=== PATIENT | male | born 1955 | race Caucasian/White ===

== ENCOUNTER → 2016-11-27 | Outpatient (CLI) | payer OTHER ==
--- NOTE | 2016-12-04 09:50 | P.ARTDOP ---
Arterial Doppler LOWER EXTREMITY ARTERIAL DOPPLER: DATE OF SERVICE: 11/27/2016 Reason for study: Leg pain. Doppler waveforms: Multiphasic bilaterally throughout. Pulse volume recording: Normal configuration. Pressure gradients: None. Ankle-brachial indices: Greater than 1 bilaterally. Toe pressures: 120 on the right, 122 on the left Impression: Normal study.
== END | disposition home or self-care (01) ==
LOC: RADUSWWP 06:55
PROVIDERS: ATTEND Family Medicine
DX: M79.669 Pain in unspecified lower leg (principal)
CPT/HCPCS: 93923

== ENCOUNTER 2017-03-21 09:31 | Observation (INO) | payer OTHER ==
[2017-03-19 09:59] VITALS: BMI 31.9
[~2017-03-21 09:31] MED LIST: DEXAMETHASONE SOD PHOSPHATE 10 MG/ML 1 ML VIAL IV ONE; MIDAZOLAM 2 MG/2 ML VIAL IV PRN; NALOXONE 0.4 MG/ML 1 ML VIAL IV PRN; ONDANSETRON 4 MG/2 ML VIAL IVP ONE; Pre Op ABX Message 1 EACH MISC MISCELLANE ONE; SCOPOLAMINE 1.5MG/72HR PATCH TRANSDERM ONE
--- NOTE | 2017-03-21 10:30 | HP ---
CHIEF COMPLAINT: Septal deviation and nasal stuffiness. HISTORY OF PRESENT ILLNESS: This patient is a 61-year-old male who was recently seen in my office complaining of having nasal stuffiness. The patient is known to have sleep apnea and uses a CPAP machine. At the time the patient was seen in my office he also states that he snores quite loudly at night. He apparently has been on Flonase but this has not improved his breathing significantly. Clinical examination of the patient's nose at the time of his office visit revealed severe nasal septal deviation, severe hypertrophy of the maxillary crest, deformity of the perpendicular plate of the ethmoid bone posteriorly, a vomerine spur impacting against the left middle turbinate and also bilateral hypertrophy of the inferior turbinates. It was recommended the patient undergo a caudal septoplasty with bilateral partial resection of the inferior turbinates under general anesthesia. Past medical history reveals the patient has no known allergies to medications. His current medications include nitroglycerine, levothyroxine, atenolol, lisinopril, amlodipine, one baby aspirin daily, Lipitor, Plavix, Prilosec, [place] , Antivert, and Coumadin. Previous surgeries include insertion of cardiac stents, hernia repair and a colonoscopy. There is a history of hypertension and ASHD, but no history of diabetes mellitus or asthma. REVIEW OF SYSTEMS: Cardiovascular is positive for hypertension, ASHD, and atrial fibrillation. Gastrointestinal is positive for gastroesophageal reflux disorder.Metabolic/endocrine is positive for hypercholesterolemia and hypothyroidism. Musculoskeletal system positive for osteoarthritis. The remainder of the review of systems is unremarkable. \ PHYSICAL EXAMINATION: This patient is a pleasant 61-year-old male who is alert and cooperative. HEENT: The patient is normocephalic. Tympanic membranes are normal. Middle ear spaces are free of any fluid or infection. Pupils equal, round and reactive to light and accommodation. Extraocular movements are within normal limits. Intranasal examination is as described above in the history of present illness, that is to say, the patient has severe anterior nasal septal deviation with subluxation with the cartilage portion of the septum off of the maxillary crest , hypertrophy of the maxillary crest, deformity of the perpendicular plate of the ethmoid bone posteriorly, vomerine spur on the left and bilateral hypertrophy of the inferior turbinates. Examination of the oropharynx, palpation of the neck, cranial nerves II through XII and the remainder of the head and neck exam all within normal limits. CHEST/CARDIOVASCULAR: Both lung orellana are clear to percussion and auscultation. The patient is in regular sinus rhythm. S1, S2 are present without any murmurs, S3 or S4s. Peripheral pulses are bilaterally symmetric and within normal limits. ABDOMEN: No evidence of masses, organomegaly, or tenderness.The abdomen is soft. SKIN: Unremarkable. MUSCULOSKELETAL/NEUROLOGICAL: Within normal limits. RECTAL: The rectal exam is deferred at this time because the patient has this done on regular basis at his family physician's office. The remainder of the physical examination is essentially unremarkable. IMPRESSION: Severe nasal septal deviation. PLAN: The patient is scheduled to undergo a caudal septoplasty with bilateral partial resection of the inferior turbinates under general anesthesia in the a.m. Attention RNs in the presurgical area: I have ordered for this patient to receive 2 grams of Ancef IV piggyback and also 1000 mg of Ofirmev IV, both to be given once an intravenous line has been established. These are the only medications that I have ordered. If any other presurgical prophylactic antibiotics are sent by the Pharmacy Department please return them to the Pharmacy Department and make sure the patient's account is credited appropriately. ( ) SAMANTHAD
[2017-03-21] MEDS ORDERED: LIDOCAINE 1% 20 ML VIAL (10MG/ML) FOR IV START INTRADERMA ONE (10:48)
[2017-03-21] MEDS ORDERED: LACTATED RINGERS 1,000 ML IV ONE ×2 (10:48→16:10)
[2017-03-21] MEDS ORDERED: ACETAMINOPHEN IV (For NPO) 1,000 MG in EMPTY BAG 1 BAG IVPB ONE (10:55)
[2017-03-21] MEDS ORDERED: ceFAZolin 2 GM in SODIUM CHLORIDE 0.9% 100 ML IVPB ONE (10:55)
[2017-03-21 12:07] LABS: INR 1.1 (<1.1); Prothrombin Time 10.9 sec (9.0-12.0)
[2017-03-21] MEDS ORDERED: MIDAZOLAM 2 MG/2 ML VIAL ONE (12:11)
[2017-03-21] MEDS ORDERED: PROPOFOL 10 MG/ML 20 ML VIAL IV ONE (12:11)
[2017-03-21] MEDS ORDERED: PHENYLEPHRINE-0.9% NACL SYG 1 MG/10 ML SYRINGE ONE (12:11)
[2017-03-21] MEDS ORDERED: SUCCINYLCHOLINE CHLORIDE 100 MG/5 ML SYR IV ONE (12:11)
[2017-03-21] MEDS ORDERED: LIDOCAINE 1% INJ 10MG/ML (20 ML MDV) ONE (12:11)
[2017-03-21] MEDS ORDERED: fentaNYL (PF) 50 MCG/ML 2 ML AMP ONE (12:11)
[2017-03-21] MEDS ORDERED: LIDOCAINE 1%-EPI 1:100,000 20 ML VIAL SUBMUCOSAL ONE (12:44)
[2017-03-21] MEDS ORDERED: BACITRACIN 500 UNIT/GM OINT 28.4 GM TUBE TOPICAL ONE (12:59)
[2017-03-21] MEDS: LACTATED RINGERS 1,000 ML IV SCH ×2 (13:24→17:06)
[2017-03-21] MEDS ORDERED: ONDANSETRON 4 MG/2 ML VIAL IVP PRN (15:00)
[2017-03-21] MEDS ORDERED: NITROGLYCERIN SL TABS 0.4 MG TAB SUBLINGUAL PRN (15:00)
[2017-03-21] MEDS ORDERED: ALPRAZolam 0.5 MG TAB PO PRN (15:00)
[2017-03-21] MEDS: HYDROmorphone 1 MG/ML 1 ML SYRINGE IVP PRN ×4 (15:16→15:40)
[2017-03-21] MEDS: HYDROmorphone PCA 5 MG/25 ML SYRINGE IV PRN (16:29)
[2017-03-21] MEDS: ACETAMINOPHEN IV (For NPO) 1,000 MG in EMPTY BAG 1 BAG IVPB SCH (17:10)
[2017-03-21] MEDS ORDERED: ATORVASTATIN 80 MG TAB PO SCH (21:00)
[2017-03-21] MEDS ORDERED: PANTOPRAZOLE 40 MG TABLET PO SCH (21:00)
[2017-03-21] MEDS ORDERED: TEMAZEPAM 30 MG CAP PO PRN (21:00)
[2017-03-21] MEDS: ceFAZolin 2 GM in SODIUM CHLORIDE 0.9% 100 ML IVPB SCH (21:03)
[2017-03-21] MEDS: LISINOPRIL 20 MG TAB PO SCH (21:04)
[2017-03-21] MEDS: ATENOLOL 50 MG TAB PO SCH (21:04)
[2017-03-22] MEDS: ACETAMINOPHEN IV (For NPO) 1,000 MG in EMPTY BAG 1 BAG IVPB SCH ×3 (00:36→12:26)
[2017-03-22] MEDS: ceFAZolin 2 GM in SODIUM CHLORIDE 0.9% 100 ML IVPB SCH ×2 (05:57→11:47)
[2017-03-22] MEDS: LACTATED RINGERS 1,000 ML IV SCH ×2 (06:12→08:36)
[2017-03-22] MEDS ORDERED: LEVOTHYROXINE 112 MCG TAB PO SCH (06:30)
[2017-03-22 07:37] VITALS: BP 148/70; PULSE 62; RESP 16; TEMP 98.8
[2017-03-22] MEDS: LISINOPRIL 20 MG TAB PO SCH (08:36)
[2017-03-22] MEDS: ATENOLOL 50 MG TAB PO SCH (08:37)
[2017-03-22] MEDS ORDERED: amLODIPine 5 MG TAB PO SCH (09:00)
[2017-03-22] MEDS: HYDROmorphone PCA 5 MG/25 ML SYRINGE IV PRN (10:11)
--- NOTE | 2017-03-25 14:20 | P.OP ---
Preoperative Diagnosis: Postoperative Diagnosis: Procedure(s) Performed: Implants: Indications for Procedure: Operative Findings: Description of Procedure: This is Dr. Carroll Moore dictating operative note on Pa Carreon. Date of surgery 03/21/2017. Date of 1955. . Pre-operative and post-operative diagnosis: Severe nasal-septal deviation with severe bilateral hypertrophy of the inferior turbinates. Anesthesia General. Operative procedure: Yolis septoplasty with bilateral partial resection of the inferior turbinates. Operating surgeon: Dr. Moore. Complications none. Estimated blood loss: approximately 50 mL. Normal operating time. Operative procedure: The patient was placed on the operating table in the supine position and after uneventful endotracheal intubation, satisfactory general anesthesia was obtained. Next the patient's face was draped in usual and customary fashion. Next both nasal chambers were packed with cottonoids saturated with Afrin nasal spray and left in place for a period of approximately 7 minutes to achieve maximum vasoconstriction of the inferior turbinates. The nasal hairs were trimmed in the usual fashion. Next the cottonoids were removed and inspection of the right and left nares revealed severe nasal-septal deviation with subluxation of the septal cartilage off of the maxillary crest, hypertrophy of the maxillary crest, deformity of the perpendicular plate of the ethmoid bone posteriorly, a vomerine spur on the left posteriorly, and finally severe bilateral hypertrophy of the inferior turbinates. Next the so-called jim-transfixation incision was made on the right side of the membrane portion of the septum using a #15 scalpel to cut through the mucous membrane only, beginning at the floor of the nose and working up to the dome of the nose . This incision was completed using a pair of angled sharp Talavera scissors which were used to cut down to the level of the perichondrium and the perichondrium of the septal cartilage was sharply incised thus exposing the cartilage. The cartilage was exposed on the left side of the septum. Next using a combination of a [place], Eric, and a Peñuelas knife, the so-called superior-posterior tunnel was created in the usual fashion by sweeping the instrument from superior to inferior and anterior to posterior in a sub-perichondrial plane. This dissection was carried back to the level of the junction of the perpendicular plate of the ethmoid and the cartilage portion of the septum. Once this point was reached then the [place] was reversed to the dull end and and the dissection was carried out along the perpendicular plate of the ethmoid bone and a sub-periosteal plane back to the level of the sphenoid bone posteriorly. The dissection was carried down to the floor of the nose using a hockey stick. Next the junction of the perpendicular plate of the ethmoid and the cartilage portion of the septum was sharply using the [place]. Next a posterior tunnel was created using the blunt and of the [place] and a sub- periosteal plane sweeping from superior to inferior anterior and posterior back to the level of the rostrum of the sphenoid bone. Again the dissection was carried down to the floor of the nose using a hockey stick. Next the inferior strip of the cartilage portion was septum, approximate 4 mm, using a Yolis knife in usual fashion. Initially, this cartilage was freed from the maxillary crest by sharply incising Sharpey's fibers using the Yolis knife. Care was taken to leave at least 1 cm of the cartilage anteriorly to provide support. This strip was subsequently removed and discarded. Next so-called inferior tunnels were made on the right and left side of the maxillary crest using the sharp end of the [place] working from anterior to posterior. The inferior tunnels on the right and the superior tunnel on the right as well as the left were joint in such a fashion as to totally expose the maxillary crest. The maxillary crest was noted to have wings present and these were removed using a 4 mm chisel and a mallet. Next of all vomerine spur was removed using a 4 mm chisel, a mallet, and a Joyce forceps. The forceps were used to grasp the spur and with a gentle twisting motion it was removed without incident. Next, the central portion of the perpendicular plated ethmoid was removed using a pair of double acting bone-biting Kerrisons in such a fashion as to leave a portion of the perpendicular plate superiorly, posteriorly, and inferiorly. Having completed the dissection this allowed the septum to swing back to the midline quite nicely. No scoring of the cartilage was necessary. Attention was then directed to the inferior turbinates and these were lateralized correction medialize using a [place] instrument. Next using a medium, curved Lalitha clamp the right inferior turbinate was clamped for a period of approximate 7 minutes. By doing so this delineated the portion of the turbinate to be resected after 7 minutes. The clamp was removed after 7 minutes and the crushed portion of the inferior turbinate was removed using a pair of turbinectomy scissors in usual fashion. Hemostasis was obtained using a combination of suction cautery and hemostatic powder. Next, attention was directed directed to the left inferior turbinate with same procedure is carried out, that is to say, it was medialized using a [place] instrument and it was essentially crushed with a medium curved Lalitha clamp that had been left in place for 7 minutes. After removing the clamp the delineated portion of the inferior turbinate which was crushed was resected using a pair of angled turbinectomy scissors. Hemostasis was obtained using suction cautery and hemostatic powder. Inspection of the nose revealed patient now had an excellent airway . Therefore, the jim-transfixation incision was closed using a using a 4-0 chromic suture in a running fashion. Next, a pair of 8 cm Xomed nasal Silastic splints were inserted on the right and left nasal chamber respectively. Next a pair of Merocel 8 cm nasal tampons were inserted in the right and left nasal chambers respectively. A mustache dressing was applied. At this point,the procedure was terminated. Estimated blood loss was less than 50 mL. The patient tolerated the procedure well and was returned to the recovery room in satisfactory condition.
== END 2017-03-22 13:41 | disposition home or self-care (01) ==
LOC: OR 09:31 → 3SUR 14:36 → OR 21:09 → 3SUR 21:09
PROVIDERS: ADMIT Otolaryngology; ATTEND Otolaryngology
DX: J34.2 Deviated nasal septum (principal); G47.30 Sleep apnea, unspecified; Z99.89 Dependence on other enabling machines and devices; Z79.51 Long term (current) use of inhaled steroids; Z79.899 Other long term (current) drug therapy; Z79.82 Long term (current) use of aspirin; Z79.02 Long term (current) use of antithrombotics/antiplatelets; I10 Essential (primary) hypertension; I48.91 Unspecified atrial fibrillation; I25.10 Atherosclerotic heart disease of native coronary artery without angina pectoris; K21.9 Gastro-esophageal reflux disease without esophagitis; E78.00 Pure hypercholesterolemia, unspecified; E03.9 Hypothyroidism, unspecified; M19.90 Unspecified osteoarthritis, unspecified site; J34.3 Hypertrophy of nasal turbinates; Z79.01 Long term (current) use of anticoagulants; Z95.5 Presence of coronary angioplasty implant and graft; Z79.891 Long term (current) use of opiate analgesic; E78.5 Hyperlipidemia, unspecified
CPT/HCPCS: 85610; 30520; 30140; G0378 ×2; J2250; J1100; J0690 ×2; J2405; J2001; J3010; J1170 ×3; J0131 ×2; J2370; J0330; J2704

== ENCOUNTER → 2017-07-10 | Outpatient (CLI) | payer OTHER ==
--- NOTE | 2017-07-11 07:18 | XR ---
EXAMINATION TYPE: XR KUB DATE OF EXAM: 07/10/2017 COMPARISON: 09/17/2015 HISTORY: Follow-up right renal stone TECHNIQUE: One view abdominal series FINDINGS: The osseous structures are intact. The bowel gas pattern is nonspecific. No definite suspicious calc ifications. Hypertrophic change of the spine noted. Arthropathy of the hips. IMPRESSION: 1. Nonspecific abdomen.
== END ==
LOC: RADXRMAIN 17:08
PROVIDERS: ATTEND Urology
DX: N20.0 Calculus of kidney (principal)
CPT/HCPCS: 74000

== ENCOUNTER 2018-10-23 00:36 | Inpatient (IN) | payer MEDICARE, OTHER ==
[2018-10-23 01:09] LABS: Basophils % (A) 0 %; Eosinophils # (A) 0.1 k/uL (0-0.7); Eosinophils % (A) 2 %; HCT 45.4 % (39.0-53.0); Lymphocytes # (A) 1.9 k/uL (1.0-4.8); Lymphocytes % (A) 24 %; MCH 30.7 pg (25.0-35.0); MCHC 33.1 g/dL (31.0-37.0); MCV 92.7 fL (80.0-100.0); Monocytes # (A) 0.7 k/uL (0-1.0); Monocytes % (A) 9 %; Neutrophils # (A) 5.1 k/uL (1.3-7.7); Neutrophils % (A) 64 %; Platelet Count 186 k/uL (150-450); RBC 4.89 m/uL (4.30-5.90); RDW 13.3 % (11.5-15.5); WBC 8.1 k/uL (3.8-10.6)
[2018-10-23 01:17] LABS: INR 1.9 (<1.2); Partial Thromboplastin Time 32.7 sec (22.0-30.0); Prothrombin Time 18.6 sec (9.0-12.0)
[2018-10-23 01:18] LABS: Albumin 4.6 g/dL (3.5-5.0); Calcium 9.7 mg/dL (8.4-10.2); Magnesium 2.1 mg/dL (1.6-2.3); Potassium 4.1 mmol/L (3.5-5.1); Total Bilirubin 0.9 mg/dL (0.2-1.3); Total Protein 7.6 g/dL (6.3-8.2)
[2018-10-23] MEDS ORDERED: DILTIAZEM DRIP BOLUS FROM BAG 1 MG SOLN IV ONE (01:32)
[2018-10-23 01:41] LABS: Troponin I 0.019 ng/mL (0.000-0.034)
[2018-10-23] MEDS ORDERED: DILTIAZEM 50 MG in SODIUM CHLORIDE 0.9% 40 ML IV SCH (01:45)
--- NOTE | 2018-10-23 01:51 | XR ---
EXAMINATION TYPE: XR chest 1V portable DATE OF EXAM: 10/23/2018 COMPARISON: 01/23/2015 HISTORY: Dysrhythmia TECHNIQUE: Single frontal view of the chest is obtained. FINDINGS: There is no heart failure nor confluent pneumonic infiltrate. Costophrenic angles are lou r. There are chest leads. Bony thorax is intact. IMPRESSION: No active cardiopulmonary disease. Normal heart. No change.
--- NOTE | 2018-10-23 02:13 | ED ---
Arrhythmia/Palpitations HPI - General Chief Complaint: Arrhythmia/Palpitations Stated Complaint: chest pain Time Seen by Provider: 10/23/18 00:45 Source: patient Mode of arrival: ambulatory Limitations: no limitations - History of Present Illness Initial Comments: This patient is a 63-year-old man who does give a history of previous episode of atrial fibrillation, who presents to be evaluated after he developed chest symptoms this evening. 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 The patient went to take his blood pressure and noticed that on his home blood pressure monitor that his heart rate was "all over" and that his blood pressure seemed to the up-and-down so he presented here to be evaluated. Complaint: "heart racing" -: hour(s) Context: occurred during exertion Arrhythmia History: atrial fibrillation Associated Symptoms: chest pain, shortness of breath - Related Data Home Medications Medication Instructions Recorded Confirmed Atenolol [Tenormin] 50 mg PO BID 05/06/14 03/21/17 Levothyroxine Sodium [Synthroid] 112 mcg PO QAM 05/06/14 03/21/17 Lisinopril [Zestril] 20 mg PO BID@1200,1800 05/06/14 03/21/17 Ascorbic Acid [Vitamin C] 1,000 mg PO DAILY 09/09/14 03/21/17 Cholecalciferol [Vitamin D3] 5,000 units PO DAILY 09/09/14 03/21/17 Magnesium 400 mg PO DAILY 09/09/14 03/21/17 Multivitamin [Men's Multi-Vitamin] 1 tab PO DAILY 09/09/14 03/21/17 Omeprazole [PriLOSEC] 20 mg PO HS 09/09/14 03/21/17 Vitamin B Complex 1 cap PO DAILY 09/09/14 03/21/17 amLODIPine BESYLATE [Norvasc] 5 mg PO DAILY 09/09/14 03/21/17 Flaxseed [Flaxseed Oil] 1,000 mg PO DAILY 09/17/15 03/21/17 Meclizine [Antivert] 25 mg PO QID PRN 12/27/15 06/30/17 Warfarin Sodium 2.5 mg PO SUMOTUTHFRSA 09/17/15 03/21/17 Warfarin [Coumadin] 5 mg PO WE@1800 09/17/15 03/21/17 Previous Rx's Medication Instructions Recorded Aspirin EC [Ecotrin Low Dose] 81 mg PO DAILY #30 tablet. 12/20/14 Atorvastatin [Lipitor] 80 mg PO HS #30 tab 12/20/14 Nitroglycerin Sl Tabs [Nitrostat] 0.4 mg SUBLINGUAL Q5M PRN #25 tab 12/20/14 HYDROcodone/APAP 10-325MG [[place] 1 tab PO Q6H PRN #10 tab 09/17/15 10-325] Cefuroxime Axetil [Ceftin] 500 mg PO BID #20 tab NS 03/21/17 HYDROcodone/APAP 7.5-325MG [[place] 1 tab PO Q4H PRN #36 tab NS 03/21/17 7.5-325] Allergies Allergy/AdvReac Type Severity Reaction Status Date / Time No Known Allergies Allergy Verified 03/21/17 21:14 Review of Systems ROS Statement: Those systems with pertinent positive or pertinent negative responses have been documented in the HPI. ROS Other: All systems not noted in ROS Statement are negative. Constitutional: Denies: fever, chills, weakness Respiratory: Reports: dyspnea. Denies: cough, wheezes Cardiovascular: Reports: chest pain, palpitations. Denies: orthopnea, edema, syncope Gastrointestinal: Denies: abdominal pain, nausea, vomiting, diarrhea Genitourinary: Denies: dysuria Musculoskeletal: Denies: back pain Skin: Denies: rash Neurological: Denies: headache, weakness, numbness Past Medical History Past Medical History: Atrial Fibrillation, Coronary Artery Disease (CAD), Chest Pain / Angina, GERD/Reflux, Hyperlipidemia, Hypertension, Thyroid Disorder Additional Past Medical History / Comment(s): ULCER, VERTIGO kidney stones, pre cancerous skin spots History of Any Multi-Drug Resistant Organisms: None Reported Past Surgical History: Heart Catheterization With Stent, Hernia Repair Additional Past Surgical History / Comment(s): HX L INGUINAL HERNIA REPAIR , PT ALSO LOST TIP OF R HAND'S THUMB. Torn miniscus, CYSTOSCOPY Past Anesthesia/Blood Transfusion Reactions: No Reported Reaction Additional Past Anesthesia/Blood Transfusion Reaction / Comment(s): NO PROBLEM WITH ANESTHESIA AND NEVER RECEIVED BLOOD. Date of Last Stent Placement:: 12/19/2014 Past Psychological History: Anxiety Smoking Status: Never smoker Past Alcohol Use History: None Reported Past Drug Use History: None Reported - Past Family History Father Family Medical History: Cancer Additional Family Medical History / Comment(s): FATHER AT AGE 75 OF [place] Mother Family Medical History: AFIB Additional Family Medical History / Comment(s): MOTHER IS LIVING. General Exam Limitations: no limitations General appearance: alert, in no apparent distress Head exam: Present: atraumatic, normocephalic Eye exam: Present: normal appearance. Absent: scleral icterus, conjunctival injection ENT exam: Present: normal oropharynx Neck exam: Present: normal inspection Respiratory exam: Present: normal lung sounds bilaterally. Absent: respiratory distress, wheezes, rales, rhonchi, stridor Cardiovascular Exam: Present: tachycardia (Heart rate approximately 112 at my exam), irregular rhythm, normal heart sounds. Absent: systolic murmur, diastolic murmur, rubs, gallop GI/Abdominal exam: Present: soft. Absent: distended, tenderness, guarding, rebound, rigid, mass Extremities exam: Present: normal inspection, normal capillary refill. Absent: pedal edema, calf tenderness Back exam: Present: normal inspection. Absent: CVA tenderness (R), CVA tenderness (L) Neurological exam: Present: alert Skin exam: Present: warm, dry, intact, normal color. Absent: rash Course Vital Signs 10/23/18 10/23/18 10/23/18 00:37 01:48 02:00 Temperature 98.0 F 98 F Pulse Rate 68 133 H 122 H Pulse Rate [ Rotor Pilot ] Respiratory 18 20 978 H Rate Blood Pressure 104/55 100/67 101/74 O2 Sat by Pulse 99 97 96 Oximetry 10/23/18 10/23/18 02:33 02:34 Temperature 98 F Pulse Rate 98 Pulse Rate [ 133 H Rotor Pilot ] Respiratory 20 Rate Blood Pressure 96/83 O2 Sat by Pulse 99 Oximetry Medical Decision Making - Lab Data Result diagrams: 10/23/18 00:57 10/23/18 00:57 Lab Results 10/23/18 10/23/18 10/23/18 Range/Units 00:57 00:57 00:57 WBC 8.1 (3.8-10.6) k/uL RBC 4.89 (4.30-5.90) m/uL Hgb 15.0 (13.0-17.5) gm/dL Hct 45.4 (39.0-53.0) % MCV 92.7 (80.0-100.0) fL MCH 30.7 (25.0-35.0) pg MCHC 33.1 (31.0-37.0) g/dL RDW 13.3 (11.5-15.5) % Plt Count 186 (150-450) k/uL Neutrophils % 64 % Lymphocytes % 24 % Monocytes % 9 % Eosinophils % 2 % Basophils % 0 % Neutrophils # 5.1 (1.3-7.7) k/uL Lymphocytes # 1.9 (1.0-4.8) k/uL Monocytes # 0.7 (0-1.0) k/uL Eosinophils # 0.1 (0-0.7) k/uL Basophils # 0.0 (0-0.2) k/uL PT (9.0-12.0) sec INR (<1.2) APTT (22.0-30.0) sec Sodium 141 (137-145) mmol/L Potassium 4.1 (3.5-5.1) mmol/L Chloride 105 (98-107) mmol/L Carbon Dioxide 28 (22-30) mmol/L Anion Gap 8 mmol/L BUN 18 (9-20) mg/dL Creatinine 1.08 (0.66-1.25) mg/dL Est GFR (CKD-EPI)AfAm 83 (>60 ml/min/1.73 sqM) Est GFR (CKD-EPI)NonAf 72 (>60 ml/min/1.73 sqM) Glucose 109 H (74-99) mg/dL Calcium 9.7 (8.4-10.2) mg/dL Magnesium 2.1 (1.6-2.3) mg/dL Total Bilirubin 0.9 (0.2-1.3) mg/dL AST 56 (17-59) U/L ALT 80 H (21-72) U/L Alkaline Phosphatase 87 (38-126) U/L Total Creatine Kinase 400 H (55-170) U/L CK-MB (CK-2) 3.0 H (0.0-2.4) ng/mL CK-MB (CK-2) Rel Index 0.8 Troponin I 0.019 (0.000-0.034) ng/mL Total Protein 7.6 (6.3-8.2) g/dL Albumin 4.6 (3.5-5.0) g/dL 10/23/18 Range/Units 00:57 WBC (3.8-10.6) k/uL RBC (4.30-5.90) m/uL Hgb (13.0-17.5) gm/dL Hct (39.0-53.0) % MCV (80.0-100.0) fL MCH (25.0-35.0) pg MCHC (31.0-37.0) g/dL RDW (11.5-15.5) % Plt Count (150-450) k/uL Neutrophils % % Lymphocytes % % Monocytes % % Eosinophils % % Basophils % % Neutrophils # (1.3-7.7) k/uL Lymphocytes # (1.0-4.8) k/uL Monocytes # (0-1.0) k/uL Eosinophils # (0-0.7) k/uL Basophils # (0-0.2) k/uL PT 18.6 H (9.0-12.0) sec INR 1.9 H (<1.2) APTT 32.7 H (22.0-30.0) sec Sodium (137-145) mmol/L Potassium (3.5-5.1) mmol/L Chloride (98-107) mmol/L Carbon Dioxide (22-30) mmol/L Anion Gap mmol/L BUN (9-20) mg/dL Creatinine (0.66-1.25) mg/dL Est GFR (CKD-EPI)AfAm (>60 ml/min/1.73 sqM) Est GFR (CKD-EPI)NonAf (>60 ml/min/1.73 sqM) Glucose (74-99) mg/dL Calcium (8.4-10.2) mg/dL Magnesium (1.6-2.3) mg/dL Total Bilirubin (0.2-1.3) mg/dL AST (17-59) U/L ALT (21-72) U/L Alkaline Phosphatase (38-126) U/L Total Creatine Kinase (55-170) U/L CK-MB (CK-2) (0.0-2.4) ng/mL CK-MB (CK-2) Rel Index Troponin I (0.000-0.034) ng/mL Total Protein (6.3-8.2) g/dL Albumin (3.5-5.0) g/dL Disposition Clinical Impression: Atrial fibrillation, Chest pain Disposition: ADMITTED IP TO THIS HOSP Condition: Fair Referrals: Juanpablo Vincent DO [Primary Care Provider] - 1-2 days
[2018-10-23] MEDS ORDERED: NITROGLYCERIN SL TABS 0.4 MG TAB SUBLINGUAL PRN (03:13)
[2018-10-23 07:58] LABS: Creatine Kinase MB 2.5 ng/mL (0.0-2.4); Troponin I 0.032 ng/mL (0.000-0.034)
[2018-10-23] MEDS ORDERED: ATENOLOL 50 MG TAB PO STA (09:14)
[2018-10-23] MEDS ORDERED: PROPAFENONE 150 MG TAB PO STA (09:27)
--- NOTE | 2018-10-23 09:36 | P.CRDCN ---
History of Present Illness Consult date: 10/23/18 Chief complaint: Heart racing and heart fluttering History of present illness: This is a pleasant 63-year-old gentleman who sees Dr. VC Montes De Oca in the office as an outpatient on regular basis with a past medical history significant for coronary artery disease and prior stenting of the mid LAD in 2015, paroxysmal atrial fibrillation, hypertension, dyslipidemia, and borderline diabetes, presented to the hospital complaining of heart racing and fluttering. The patient was in his usual state of health were he is normally physically very active until yesterday when he was working at home to fix a couch and by the end of the day he started experiencing the feeling of heart racing and fluttering. He new that he is in atrial fibrillation. His atrial fibrillation normally is very symptomatic. He felt dizzy and lightheaded. No syncope. Also he did have an episode of very mild chest discomfort which has resolved completely now. He checked his blood pressure and heart rate and he noticed that the heart rate was quite irregular and because of that he decided to come to the emergency room. In the ER the patient was found to be in atrial fibrillation with RVR. He was started on Cardizem drip and currently he is on Cardizem drip at 5 mg per hour. The patient is on oral anticoagulation was, then and when he presented to the emergency room earlier today the INR was 1.9. 2 sets of cardiac enzymes were checked and came in to be unremarkable. The EKG showed atrial fibrillation. No ischemic ST or T-wave abnormalities. The chest x-ray did not show any acute abnormalities. The CBC and BNP came in to be unremarkable. I am going to restart the patient on the home dose of atenolol which is 50 mg by mouth twice a day. Try to wean her from the Cardizem drip. We will try to give the patient is small 600 mg by mouth once if he converted to normal sinus mechanism he might be able to be discharged home. If not he might benefit from cardioversion later on today with or without MAIRA. The INR this morning was 1.9. Past Medical History Past Medical History: Atrial Fibrillation, Coronary Artery Disease (CAD), Chest Pain / Angina, GERD/Reflux, Hyperlipidemia, Hypertension, Renal Disease, Thyroid Disorder Additional Past Medical History / Comment(s): Past episode of Afib, antral ulcer , hypothyroid, vertigo rarely, nephrolithiasis-passed stones on own and surgically removed once, R torn meniscus now healed, pre cancerous skin lesions , currently R ear is plugged, pancreatitis once following procedure to check liver d/t elevated LFT. History of Any Multi-Drug Resistant Organisms: None Reported Past Surgical History: Heart Catheterization With Stent, Hernia Repair, Orthopedic Surgery, Tonsillectomy Additional Past Surgical History / Comment(s): PCI with stent, L inguinal hernia repari, R tip of thumb amputation, cystoscopy with laser for kidney stone , EGDs, colonoscopy, [place] septoplasty. Past Anesthesia/Blood Transfusion Reactions: No Reported Reaction Additional Past Anesthesia/Blood Transfusion Reaction / Comment(s): NO PROBLEM WITH ANESTHESIA AND NEVER RECEIVED BLOOD. Date of Last Stent Placement:: 12/19/2014 Smoking Status: Never smoker - Past Family History Father Family Medical History: Cancer Additional Family Medical History / Comment(s): FATHER AT AGE 75 OF [place] CA/METS TO BRAIN/KIDNEY Mother Family Medical History: AFIB Additional Family Medical History / Comment(s): MOTHER IS LIVING. Medications and Allergies Home Medications Medication Instructions Recorded Confirmed Type Atenolol [Tenormin] 50 mg PO BID 05/06/14 10/23/18 History Levothyroxine Sodium [Synthroid] 112 mcg PO QAM 05/06/14 10/23/18 History Lisinopril [Zestril] 20 mg PO BID@1200,1800 05/06/14 10/23/18 History Ascorbic Acid [Vitamin C] 1,000 mg PO DAILY 09/09/14 10/23/18 History Cholecalciferol [Vitamin D3] 5,000 units PO DAILY 09/09/14 10/23/18 History Magnesium 400 mg PO DAILY 09/09/14 10/23/18 History Multivitamin [Men's Multi-Vitamin] 1 tab PO DAILY 09/09/14 10/23/18 History Omeprazole [PriLOSEC] 20 mg PO HS 09/09/14 10/23/18 History Vitamin B Complex 1 cap PO DAILY 09/09/14 10/23/18 History amLODIPine BESYLATE [Norvasc] 5 mg PO DAILY 09/09/14 10/23/18 History Aspirin EC [Ecotrin Low Dose] 81 mg PO DAILY #30 tablet. 12/20/14 10/23/18 Rx Atorvastatin [Lipitor] 80 mg PO HS #30 tab 12/20/14 10/23/18 Rx Nitroglycerin Sl Tabs [Nitrostat] 0.4 mg SUBLINGUAL Q5M PRN #25 tab 12/20/1410/10 Rx Flaxseed [Flaxseed Oil] 1,000 mg PO DAILY 09/17/15 10/23/18 History Meclizine [Antivert] 25 mg PO QID PRN 09/17/15 10/23/18 History Warfarin Sodium 2.5 mg PO WEFR 09/17/15 10/23/18 History Warfarin [Coumadin] 5 mg PO SUMOTUTHSA 10/23/18 10/23/18 History Allergies Allergy/AdvReac Type Severity Reaction Status Date / Time No Known Allergies Allergy Verified 03/21/17 21:14 Physical Exam Vitals: Vital Signs Temp Pulse Pulse Resp BP BP Pulse Ox 10/23/18 09:09 98 F 103 H 20 132/76 98 10/23/18 08:30 98 F 102 H 20 102/62 97 10/23/18 07:25 100 20 98 10/23/18 07:11 110 H 20 129/77 97 10/23/18 06:00 90 20 105/71 97 10/23/18 05:24 98.1 F 96 18 98/74 96 10/23/18 04:00 101 H 18 101/76 97 10/23/18 03:00 96 20 94/73 97 10/23/18 02:34 133 H 10/23/18 02:33 98 F 98 20 96/83 99 10/23/18 02:00 122 H 978 H 101/74 96 10/23/18 01:48 98 F 133 H 20 100/67 97 10/23/18 00:37 98.0 F 68 18 104/55 99 Intake and Output 10/22/18 10/23/18 10/23/18 22:59 06:59 14:59 Other: Weight 101.151 kg - Constitutional General appearance: no acute distress - Respiratory Respiratory: bilateral: CTA - Cardiovascular Rhythm: irregularly irregular Heart sounds: normal: S1, S2 Results 10/23/18 00:57 10/23/18 00:57 Cardiac Enzymes 10/23/18 10/23/18 10/23/18 Range/Units 00:57 00:57 06:58 AST 56 (17-59) U/L CK-MB (CK-2) 3.0 H 2.5 H (0.0-2.4) ng/mL Troponin I 0.019 0.032 (0.000-0.034) ng/mL Coagulation 10/23/18 Range/Units 00:57 PT 18.6 H (9.0-12.0) sec APTT 32.7 H (22.0-30.0) sec CBC 10/23/18 Range/Units 00:57 WBC 8.1 (3.8-10.6) k/uL RBC 4.89 (4.30-5.90) m/uL Hgb 15.0 (13.0-17.5) gm/dL Hct 45.4 (39.0-53.0) % Plt Count 186 (150-450) k/uL Comprehensive Metabolic Panel 10/23/18 Range/Units 00:57 Sodium 141 (137-145) mmol/L Potassium 4.1 (3.5-5.1) mmol/L Chloride 105 (98-107) mmol/L Carbon Dioxide 28 (22-30) mmol/L BUN 18 (9-20) mg/dL Creatinine 1.08 (0.66-1.25) mg/dL Glucose 109 H (74-99) mg/dL Calcium 9.7 (8.4-10.2) mg/dL AST 56 (17-59) U/L ALT 80 H (21-72) U/L Alkaline Phosphatase 87 (38-126) U/L Total Protein 7.6 (6.3-8.2) g/dL Albumin 4.6 (3.5-5.0) g/dL Current Medications Generic Name Dose Route Start Last Admin Trade Name Freq PRN Reason Stop Dose Admin Aspirin 325 mg 10/24/18 09:00 Aspirin PO DAILY [facility] Atenolol 50 mg 10/23/18 21:00 Tenormin PO BID [facility] Diltiazem HCl 50 mg/ Sodium 50 mls @ 5 mls/hr 10/23/18 01:45 10/23/18 02:02 Chloride IV 5 mg/hr .Q10H [facility]UKA 5 mls/hr Administration 5 MG/HR Sodium Chloride 1,000 mls @ 50 mls/hr 10/23/18 09:30 Saline 0.9% IV .Q20H [facility]ENUKA Nitroglycerin 0.4 mg 10/23/18 03:13 Nitrostat SUBLINGUAL Q5M PRN Chest Pain Intake and Output 10/22/18 10/23/18 10/23/18 22:59 06:59 14:59 Other: Weight 101.151 kg 10/23/18 00:57 10/23/18 00:57 Assessment and Plan Assessment: Assessment #1 atrial fibrillation with uncontrolled heart rate. #2 paroxysmal atrial fibrillation. #3 CAD and status post a stenting of the LAD in 2014 #4 borderline diabetes #5 hypertension #6 dyslipidemia Plan #1 acute coronary event was ruled out. The patient is not having chest pain at this point. 2 sets of enzymes came in to be unremarkable. #2 restart the patient on the home dose of atenolol. The right to wean him from the Cardizem IV #3 continue oral anticoagulation was Coumadin #4 try Rythmol. If it did not work consider cardioversion with or without MAIRA #5 severe CAD to be ruled out. Probably as an outpatient. Currently the patient is chest pain-free #6 follow-up with the patient Thank you for allowing us participate in his care and we will continue following up with her
[2018-10-23] MEDS: SODIUM CHLORIDE 0.9% 1,000 ML IV SCH (09:55)
[2018-10-23] MEDS ORDERED: MECLIZINE 25 MG TAB PO PRN (10:29)
[2018-10-23] MEDS ORDERED: FLAXSEED 1000 MG PO SCH (10:30)
[2018-10-23] MEDS ORDERED: NON-FORMULARY DRUG (Vitamin B Complex [Vitamin B Complex] 1 CAP) PO SCH (10:45)
[2018-10-23] MEDS: LISINOPRIL 20 MG TAB PO SCH ×2 (11:38→17:34)
[2018-10-23] MEDS: CHOLECALCIFEROL 1,000 UNIT TAB PO SCH (11:38)
[2018-10-23] MEDS: LEVOTHYROXINE 112 MCG TAB PO SCH (11:38)
[2018-10-23] MEDS: MULTIVITAMINS, THERA 1 EACH TAB PO SCH (11:39)
[2018-10-23] MEDS: ASCORBIC ACID 500 MG TAB PO SCH (11:39)
[2018-10-23] MEDS: amLODIPine 5 MG TAB PO SCH (11:48)
[2018-10-23] MEDS ORDERED: SODIUM CHLORIDE 0.9% 1,000 ML IV SCH (12:00)
[2018-10-23 14:34] LABS: Troponin I 0.015 ng/mL (0.000-0.034)
[2018-10-23] MEDS ORDERED: DEXTROSE 5% IN WATER 100 ML with AMIODARONE 150 MG IV ONE (15:43)
[2018-10-23] MEDS: AMIODARONE 450 MG in DEXTROSE 5% IN WATER 250 ML IV SCH ×2 (16:56)
[2018-10-23] MEDS ORDERED: WARFARIN 2.5 MG TAB PO ONE (18:00)
[2018-10-23] MEDS ORDERED: WARFARIN 2.5 MG TAB PO SCH (18:00)
[2018-10-23] MEDS: MAGNESIUM OXIDE 400 MG TAB PO SCH (18:43)
[2018-10-23] MEDS: ATENOLOL 50 MG TAB PO SCH (20:38)
[2018-10-23] MEDS ORDERED: PANTOPRAZOLE 40 MG TABLET PO SCH (21:00)
[2018-10-23 22:41] LABS: Cholesterol 155 mg/dL (<200); HDL Cholesterol 36 mg/dL (40-60); LDL Cholesterol,Calculated 80 mg/dL (0-99); Triglycerides 195 mg/dL (<150)
[2018-10-24] MEDS: AMIODARONE 450 MG in DEXTROSE 5% IN WATER 250 ML IV SCH ×2 (00:16)
[2018-10-24 06:21] VITALS: TEMP 97.7
[2018-10-24] MEDS: LEVOTHYROXINE 112 MCG TAB PO SCH (06:22)
[2018-10-24] MEDS: SODIUM CHLORIDE 0.9% 1,000 ML IV SCH (06:23)
[2018-10-24 08:30] VITALS: RESP 16
[2018-10-24] MEDS: ATENOLOL 50 MG TAB PO SCH (08:32)
[2018-10-24] MEDS: ASCORBIC ACID 500 MG TAB PO SCH (08:32)
[2018-10-24] MEDS: amLODIPine 5 MG TAB PO SCH (08:32)
[2018-10-24] MEDS: MAGNESIUM OXIDE 400 MG TAB PO SCH (08:32)
[2018-10-24 09:00] LABS: INR 2.2 (<1.2); Prothrombin Time 21.7 sec (9.0-12.0)
[2018-10-24] MEDS ORDERED: AMIODARONE 200 MG TAB PO SCH (09:00)
[2018-10-24] MEDS ORDERED: ASPIRIN 325 MG TAB PO SCH (09:00)
--- NOTE | 2018-10-24 11:09 | P.HPIM ---
History of Present Illness H&P Date: 10/23/18 This is a very pleasant 58-year-old gentleman came in with the complaints of racing and fluttering and patient is found to be in atrial fibrillation with rapid ventricular rate patient does have known history of proximal A. fib patient up and felt dizzy lightheaded denied any chest pain patient is quite was quite a bit symptomatic. Patient was started on Cardizem drip patient is already on anticoagulation which is being continued. Patient denied any fever chills cough dysuria abdominal pain. Review of Systems REVIEW OF SYSTEMS: CONSTITUTIONAL: No fever, no malaise, no fatigue. HEENT: No recent visual problems or hearing problems. Denied any sore throat. CARDIOVASCULAR: As mentioned in HPI PULMONARY: No shortness of breath, no cough, no hemoptysis. GASTROINTESTINAL: No diarrhea, no nausea, no vomiting, no abdominal pain. NEUROLOGICAL: No headaches, no weakness, no numbness. HEMATOLOGICAL: Denies any bleeding or petechiae. GENITOURINARY: Denies any burning micturition, frequency, or urgency. MUSCULOSKELETAL/RHEUMATOLOGICAL: Denies any joint pain, swelling, or any muscle pain. ENDOCRINE: Denies any polyuria or polydipsia. The rest of the 14-point review of systems is negative. Past Medical History Past Medical History: Atrial Fibrillation, Coronary Artery Disease (CAD), Chest Pain / Angina, GERD/Reflux, Hyperlipidemia, Hypertension, Renal Disease, Thyroid Disorder Additional Past Medical History / Comment(s): Past episode of Afib, antral ulcer , hypothyroid, vertigo rarely, nephrolithiasis-passed stones on own and surgically removed once, R torn meniscus now healed, pre cancerous skin lesions , currently R ear is plugged, pancreatitis once following procedure to check liver d/t elevated LFT. History of Any Multi-Drug Resistant Organisms: None Reported Past Surgical History: Heart Catheterization With Stent, Hernia Repair, Orthopedic Surgery, Tonsillectomy Additional Past Surgical History / Comment(s): PCI with stent, L inguinal hernia repari, R tip of thumb amputation, cystoscopy with laser for kidney stone , EGDs, colonoscopy, [place] septoplasty. Past Anesthesia/Blood Transfusion Reactions: No Reported Reaction Additional Past Anesthesia/Blood Transfusion Reaction / Comment(s): NO PROBLEM WITH ANESTHESIA AND NEVER RECEIVED BLOOD. Date of Last Stent Placement:: 12/19/2014 Smoking Status: Never smoker - Past Family History Father Family Medical History: Cancer Additional Family Medical History / Comment(s): FATHER AT AGE 75 OF [place] CA/METS TO BRAIN/KIDNEY Mother Family Medical History: AFIB Additional Family Medical History / Comment(s): MOTHER IS LIVING. Medications and Allergies Home Medications Medication Instructions Recorded Confirmed Type Atenolol [Tenormin] 50 mg PO BID 05/06/14 10/23/18 History Levothyroxine Sodium [Synthroid] 112 mcg PO QAM 05/06/14 10/23/18 History Lisinopril [Zestril] 20 mg PO BID@1200,1800 05/06/14 10/23/18 History Ascorbic Acid [Vitamin C] 1,000 mg PO DAILY 09/09/14 10/23/18 History Cholecalciferol [Vitamin D3] 5,000 units PO DAILY 09/09/14 10/23/18 History Magnesium 400 mg PO DAILY 09/09/14 10/23/18 History Multivitamin [Men's Multi-Vitamin] 1 tab PO DAILY 09/09/14 10/23/18 History Omeprazole [PriLOSEC] 20 mg PO HS 09/09/14 10/23/18 History Vitamin B Complex 1 cap PO DAILY 09/09/14 10/23/18 History amLODIPine BESYLATE [Norvasc] 5 mg PO DAILY 09/09/14 10/23/18 History Aspirin EC [Ecotrin Low Dose] 81 mg PO DAILY #30 tablet. 12/20/14 10/23/18 Rx Atorvastatin [Lipitor] 80 mg PO HS #30 tab 12/20/14 10/23/18 Rx Nitroglycerin Sl Tabs [Nitrostat] 0.4 mg SUBLINGUAL Q5M PRN #25 tab 12/20/1410/10 Rx Flaxseed [Flaxseed Oil] 1,000 mg PO DAILY 09/17/15 10/23/18 History Meclizine [Antivert] 25 mg PO QID PRN 09/17/15 10/23/18 History Warfarin Sodium 2.5 mg PO WEFR 09/17/15 10/23/18 History Warfarin [Coumadin] 5 mg PO SUMOTUTHSA 10/23/18 10/23/18 History Allergies Allergy/AdvReac Type Severity Reaction Status Date / Time No Known Allergies Allergy Verified 03/21/17 21:14 Physical Exam Vitals: Vital Signs Temp Pulse Resp BP Pulse Ox 10/24/18 09:25 16 10/24/18 08:25 97.7 F 57 L 16 120/65 94 L 10/24/18 04:00 97.7 F 59 L 20 110/61 96 10/24/18 03:37 18 10/24/18 00:00 98.3 F 113 H 18 119/76 95 10/23/18 21:24 96 10/23/18 20:05 97.2 F L 82 17 106/70 96 10/23/18 20:00 82 17 10/23/18 16:35 97.7 F 85 16 128/56 10/23/18 16:11 98 10/23/18 12:00 85 16 Intake and Output 10/23/18 10/24/18 10/24/18 22:59 06:59 14:59 Intake Total 630 226.916 Output Total 250 Balance 380 226.916 Intake: Intake, IV Titration 80 226.916 Amount Amiodarone 450 mg In 226.916 Dextrose 5% in Water 250 ml @ 1 MG/MIN 33.33 mls/ hr IV .Q7H31M RENUKA Rx#: [id number] Sodium Chloride 0.9% 1, 80 000 ml @ 20 mls/hr IV . Q24H RENUKA Rx#:[id number] Oral 550 Output: Urine 250 Other: Voiding Method Toilet Toilet Toilet # Voids 1 4 Weight 101 kg PHYSICAL EXAMINATION: GENERAL: The patient is alert and oriented x3, not in any acute distress. These HEENT: Pupils are round and equally reacting to light. EOMI. No scleral icterus. No conjunctival pallor. Normocephalic, atraumatic. No pharyngeal erythema. No thyromegaly. CARDIOVASCULAR: S1 and S2 present. No murmurs, rubs, or gallops. Irregularly irregular rhythm PULMONARY: Chest is clear to auscultation, no wheezing or crackles. ABDOMEN: Soft, nontender, nondistended, normoactive bowel sounds. No palpable organomegaly. MUSCULOSKELETAL: No joint swelling or deformity. EXTREMITIES: No cyanosis, clubbing, or pedal edema. NEUROLOGICAL: Gross neurological examination did not reveal any focal deficits. SKIN: No rashes. Results CBC & Chem 7: 10/23/18 00:57 10/23/18 00:57 Labs: Abnormal Lab Results - Last 24 Hours (Table) 10/23/18 10/23/18 10/24/18 Range/Units 00:57 13:32 08:15 PT 21.7 H (9.0-12.0) sec INR 2.2 H (<1.2) Total Creatine Kinase 431 H (55-170) U/L CK-MB (CK-2) 3.0 H (0.0-2.4) ng/mL Triglycerides 195 H (<150) mg/dL HDL Cholesterol 36 L (40-60) mg/dL Thrombosis Risk Factor Assmnt - Choose All That Apply Any of the Below Risk Factors Present?: Yes Each Factor Represents 1 point: Obesity (BMI >25) Other Risk Factors: Yes Each Risk Factor Represents 2 Points: Age 61-74 years Other congenital or acquired thrombophilia - If yes, enter type in comment: No Thrombosis Risk Factor Assessment Total Risk Factor Score: 3 Thrombosis Risk Factor Assessment Level: Moderate Risk Assessment and Plan Plan: -Atrial fibrillation with rapid ventricular rate: Patient will be switched back to beta preet wean off Cardizem continue with anti-coagulation with Coumadin -History of proximal A. fib -Coronary artery disease with history of stenting to LAD -Type 2 diabetes mellitus borderline diet-controlled -On Coumadin INR is close to therapeutic -Hypertension -Hyperlipidemia
--- NOTE | 2018-10-24 11:17 | P.DS ---
Providers Date of admission: 10/23/18 03:18 Attending physician: Arias Hernandez Consults: 10/23/18 03:13 Consult Physician Routine Consulting Provider: Yoseph Montes De Oca Consult Reason/Comments: Atrial fibrillation with rapid ventricular rate Do you want consulting provider notified?: Yes Primary care physician: [facility] Course: 58-year-old admitted for A. fib with rapid ventricular rate. Patient is presently rate controlled and converted to sinus rhythm with amiodarone patient will be discharged today patient is being evaluated for co-pay for a new anticoagulants if patient can afford the co-pay patient will be switched to new anticoagulants and Coumadin will be discontinued. PHYSICAL EXAMINATION: GENERAL: The patient is alert and oriented x3, not in any acute distress. Well developed, well nourished. HEENT: Pupils are round and equally reacting to light. EOMI. No scleral icterus. No conjunctival pallor. Normocephalic, atraumatic. No pharyngeal erythema. No thyromegaly. CARDIOVASCULAR: S1 and S2 present. No murmurs, rubs, or gallops. PULMONARY: Chest is clear to auscultation, no wheezing or crackles. ABDOMEN: Soft, nontender, nondistended, normoactive bowel sounds. No palpable organomegaly. MUSCULOSKELETAL: No joint swelling or deformity. EXTREMITIES: No cyanosis, clubbing, or pedal edema. NEUROLOGICAL: Gross neurological examination did not reveal any focal deficits. SKIN: No rashes. Assessment and Plan Plan: -Atrial fibrillation with rapid ventricular rate of admission: Presently sinus rhythm. -History of proximal A. fib -Coronary artery disease with history of stenting to LAD -Type 2 diabetes mellitus borderline diet-controlled -On Coumadin INR is close to therapeutic the patient is being evaluated for new anticoagulants -Hypertension -Hyperlipidemia Patient Condition at Discharge: Fair Plan - Discharge Summary Discharge Rx Participant: No New Discharge Prescriptions: No Action Lisinopril [Zestril] 20 mg PO BID@1200,1800 Levothyroxine Sodium [Synthroid] 112 mcg PO QAM Atenolol [Tenormin] 50 mg PO BID Omeprazole [PriLOSEC] 20 mg PO HS amLODIPine BESYLATE [Norvasc] 5 mg PO DAILY Vitamin B Complex 1 cap PO DAILY Ascorbic Acid [Vitamin C] 1,000 mg PO DAILY Multivitamin [Men's Multi-Vitamin] 1 tab PO DAILY Magnesium 400 mg PO DAILY Cholecalciferol [Vitamin D3] 5,000 units PO DAILY Atorvastatin [Lipitor] 80 mg PO HS #30 tab Nitroglycerin Sl Tabs [Nitrostat] 0.4 mg SUBLINGUAL Q5M PRN #25 tab PRN Reason: Chest Pain Aspirin EC [Ecotrin Low Dose] 81 mg PO DAILY #30 tablet. Warfarin Sodium 2.5 mg PO WEFR Meclizine [Antivert] 25 mg PO QID PRN PRN Reason: DIZZINESS Flaxseed [Flaxseed Oil] 1,000 mg PO DAILY Warfarin [Coumadin] 5 mg PO SUMOTUTH Discharge Medication List Atenolol [Tenormin] 50 mg PO BID 05/06/14 [History] Levothyroxine Sodium [Synthroid] 112 mcg PO QAM 05/06/14 [History] Lisinopril [Zestril] 20 mg PO BID@1200,1800 05/06/14 [History] Ascorbic Acid [Vitamin C] 1,000 mg PO DAILY 09/09/14 [History] Cholecalciferol [Vitamin D3] 5,000 units PO DAILY 09/09/14 [History] Magnesium 400 mg PO DAILY 09/09/14 [History] Multivitamin [Men's Multi-Vitamin] 1 tab PO DAILY 09/09/14 [History] Omeprazole [PriLOSEC] 20 mg PO HS 09/09/14 [History] Vitamin B Complex 1 cap PO DAILY 09/09/14 [History] amLODIPine BESYLATE [Norvasc] 5 mg PO DAILY 09/09/14 [History] Aspirin EC [Ecotrin Low Dose] 81 mg PO DAILY #30 tablet. 12/20/14 [Rx] Atorvastatin [Lipitor] 80 mg PO HS #30 tab 12/20/14 [Rx] Nitroglycerin Sl Tabs [Nitrostat] 0.4 mg SUBLINGUAL Q5M PRN #25 tab 12/20/14 [Rx ] Flaxseed [Flaxseed Oil] 1,000 mg PO DAILY 09/17/15 [History] Meclizine [Antivert] 25 mg PO QID PRN 09/17/15 [History] Warfarin Sodium 2.5 mg PO WEFR 09/17/15 [History] Warfarin [Coumadin] 5 mg PO SUMOTUTHSA 10/23/18 [History] Amiodarone [Cordarone] 200 mg PO BID #60 tab 10/24/18 [Rx] Follow up Appointment(s)/Referral(s): Juanpablo Vincent DO [Primary Care Provider] - 1-2 days
[2018-10-24 11:57] VITALS: BP 115/63; PULSE 62
[2018-10-24] MEDS: MULTIVITAMINS, THERA 1 EACH TAB PO SCH (13:21)
[2018-10-24] MEDS: CHOLECALCIFEROL 1,000 UNIT TAB PO SCH (13:21)
[2018-10-24] MEDS: LISINOPRIL 20 MG TAB PO SCH (13:21)
--- NOTE | 2018-10-24 14:33 | P.PN ---
Subjective Progress Note Date: 10/24/18 This is a pleasant 63-year-old gentleman who follows with Dr. VC Montes De Oca in the office. He has a past medical history significant for coronary artery disease and prior stenting of the LAD, paroxysmal atrial fibrillation, hypertension, hyperlipidemia, borderline diabetes, presented to the hospital with palpitations , was found to be in atrial fibrillation with rapid ventricular response. Patient was given a dose of Rythmol and subsequently started on Cardizem drip, converted to normal sinus rhythm. At the time of our examination this morning he continues to be in a normal sinus rhythm. Currently on oral amiodarone. We did check to see regarding coverage for him, we will start him on Eliquis 5 mg one tablet by mouth twice a day today and discontinue his heparin. He may be able to be discharged home to follow-up in the office post discharge. Objective - Vital Signs Vital signs: Vital Signs Temp 97.7 F 10/24/18 08:25 Pulse 62 10/24/18 11:15 Resp 16 10/24/18 11:15 BP 115/63 10/24/18 11:15 Pulse Ox 95 10/24/18 11:15 Intake & Output 10/23/18 10/24/18 10/24/18 18:59 06:59 18:59 Intake Total 399.667 856.916 240 Output Total 250 Balance 399.667 606.916 240 Weight 101 kg Intake: Intake, IV Titration 39.667 306.916 Amount Amiodarone 450 mg In 226.916 Dextrose 5% in Water 250 ml @ 1 MG/MIN 33.33 mls/ hr IV .Q7H31M [facility]ENUKA Rx#: [id number] Diltiazem 50 mg In Sodium 39.667 Chloride 0.9% 40 ml @ 5 MG/HR 5 mls/hr IV .Q10H [facility]ENUKA Rx#:[id number] Sodium Chloride 0.9% 1, 80 000 ml @ 20 mls/hr IV . Q24H RENUKA Rx#:[id number] Oral 360 550 240 Output: Urine 250 Other: Voiding Method Toilet Toilet Toilet # Voids 1 4 2 - Exam PHYSICAL EXAMINATION: GENERAL: 63-year-old gentleman in no acute distress at the time of my examination HEENT: Head is atraumatic, normocephalic. Pupils equal, round. Sclera anicteric. Conjunctiva are clear. Mucous membranes of the mouth are moist. Neck is supple. There is no elevated jugular venous pressure. No carotid bruit is heard. HEART EXAMINATION: Heart S1, S2 normal. No murmur or gallop heard. CHEST EXAMINATION: Lungs are clear to auscultation and precussion. No chest wall tenderness is noted on palpation or with deep breathing. ABDOMEN: Soft, nontender. Bowel sounds are heard. No organomegaly noted. EXTREMITIES: 2+ peripheral pulses with no evidence of peripheral edema and no calf tenderness noted. NEUROLOGIC patient is awake, alert and oriented 3 . . - Labs CBC & Chem 7: 10/23/18 00:57 10/23/18 00:57 Labs: Abnormal Lab Results - Last 24 Hours (Table) 10/23/18 10/23/18 10/24/18 Range/Units 00:57 13:32 08:15 PT 21.7 H (9.0-12.0) sec INR 2.2 H (<1.2) CK-MB (CK-2) 3.0 H (0.0-2.4) ng/mL Triglycerides 195 H (<150) mg/dL HDL Cholesterol 36 L (40-60) mg/dL Assessment and Plan Plan: Assessment and plan #1 atrial fibrillation with uncontrolled heart rate, paroxysmal, currently in normal sinus rhythm. #2 paroxysmal atrial fibrillation. #3 CAD and status post a stenting of the LAD in 2014 #4 borderline diabetes #5 hypertension #6 dyslipidemia Plan IV heparin will be discontinued and patient will be started on Eliquis 5 mg one tablet by mouth twice a day. We will continue oral amiodarone. Patient may be able to be discharged home from our perspective to follow-up in the office post discharge. DNP note has been reviewed, I agree with a documented findings and plan of care. Patient was seen and examined.
[2018-10-24] MEDS ORDERED: WARFARIN 2.5 MG TAB PO SCH (18:00)
[2018-10-24] MEDS ORDERED: WARFARIN 5 MG TAB PO SCH (18:00)
[2018-10-24] MEDS ORDERED: APIXABAN 5 MG TAB PO SCH (21:00)
[2018-10-28] MEDS ORDERED: WARFARIN 5 MG TAB PO SCH (18:00)
== END 2018-10-24 15:59 | disposition home or self-care (01) | DRG 310 ==
LOC: EC 00:36 → 3SCARD 03:18 → 2CATHESU 07:29 → 3SCARD 09:55
PROVIDERS: ADMIT Hospitalist; ATTEND Hospitalist
DX: I48.0 Paroxysmal atrial fibrillation (principal); E78.5 Hyperlipidemia, unspecified; I10 Essential (primary) hypertension; I25.10 Atherosclerotic heart disease of native coronary artery without angina pectoris; K21.9 Gastro-esophageal reflux disease without esophagitis; E03.9 Hypothyroidism, unspecified; R73.03 Prediabetes; F41.9 Anxiety disorder, unspecified; R07.9 Chest pain, unspecified; Z79.01 Long term (current) use of anticoagulants; Z79.82 Long term (current) use of aspirin; Z79.890 Hormone replacement therapy; Z79.899 Other long term (current) drug therapy; Z95.5 Presence of coronary angioplasty implant and graft; Z87.11 Personal history of peptic ulcer disease; Z87.442 Personal history of urinary calculi; Z80.8 Family history of malignant neoplasm of other organs or systems; Z82.49 Family history of ischemic heart disease and other diseases of the circulatory system
CPT/HCPCS: 36415; 71045; 80053; 80061; 82550; 82553; 83735; 84484; 85025; 85610; 85730; 93005; 94760; 96365; 96366; 96376; 99285

== ENCOUNTER 2018-11-11 09:19 | Day surgery (SDC) | payer MEDICARE ==
[2018-11-09 13:17] VITALS: BMI 33.4
[~2018-11-11 09:19] MED LIST changes: +ALPRAZolam 0.25 MG TAB PO PRN; +ALPRAZolam 0.5 MG TAB PO PRN; +ASPIRIN 325 MG TAB PO STA; +ATORVASTATIN 80 MG TAB PO STA; -DEXAMETHASONE SOD PHOSPHATE 10 MG/ML 1 ML VIAL IV ONE; -MIDAZOLAM 2 MG/2 ML VIAL IV PRN; -NALOXONE 0.4 MG/ML 1 ML VIAL IV PRN; +NITROGLYCERIN SL TABS 0.4 MG TAB SUBLINGUAL PRN; -ONDANSETRON 4 MG/2 ML VIAL IVP ONE; -Pre Op ABX Message 1 EACH MISC MISCELLANE ONE; -SCOPOLAMINE 1.5MG/72HR PATCH TRANSDERM ONE; +SODIUM CHLORIDE 0.9% 1,000 ML in EMPTY BAG 1 BAG IV ONE
[2018-11-11 10:06] VITALS: RESP 16; TEMP 97.8
[2018-11-11] MEDS ORDERED: fentaNYL (PF) 50 MCG/ML 2 ML AMP ONE (10:21)
[2018-11-11] MEDS ORDERED: MIDAZOLAM 2 MG/2 ML VIAL IVP ONE (10:42)
[2018-11-11] MEDS ORDERED: fentaNYL (PF) 50 MCG/ML 2 ML AMP IVP ONE (10:42)
[2018-11-11] MEDS ORDERED: LIDOCAINE 1% INJ 10MG/ML (20 ML MDV) SQ ONE (10:50)
[2018-11-11] MEDS ORDERED: LIDOCAINE 1% INJ 10MG/ML (20 ML MDV) ONE (10:56)
[2018-11-11] MEDS ORDERED: IOPAMIDOL-370 150ML BTL INJ ONE (11:05)
[2018-11-11] MEDS ORDERED: RX INFO: IV CONTRAST WAS GIVEN 1 EACH MISC MISCELLANE PRN (11:14)
[2018-11-11] MEDS ORDERED: SODIUM CHLORIDE 0.9% 1,000 ML IV SCH (11:15)
[2018-11-11] MEDS ORDERED: FLECAINIDE 50 MG TAB PO SCH (11:30)
--- NOTE | 2018-11-11 11:34 | CC ---
CARDIAC CATHETERIZATION REPORT This patient was recently admitted in the hospital with atrial fibrillation and he was converted. Subsequently patient was discharged home on amiodarone but he could not tolerate it. The patient had a stress test done which showed evidence of anterior lateral ischemia. In view of that, the patient was recommended to have a cardiac catheterization for definitive diagnosis to rule out any evidence of re-stenosis. PROCEDURE: The right groin was prepped and draped in the usual manner and the skin was infiltrated with 2% Xylocaine. The right femoral artery was entered using Seldinger technique and a #6-Spanish sheath was placed in using a micropuncture needle. Selective coronary angiography was then performed in multiple projections and the left ventricular pressures were obtained. Sheath was removed and good hemostasis was achieved with the use of Angio-Seal. Moderate sedation was used. Sedation time is 25 minutes. HEMODYNAMICS: The left ventricular end-diastolic pressure is 16 mmHg prior to angiography. No gradient is noted across the aortic valve. SELECTIVE CORONARY ANGIOGRAPHY: Left main coronary artery is good caliber blood vessel. LAD is a good caliber blood vessel and mid LAD after the origin of the diagonal branch at the site of the prior stent is patent with mild irregularities noted. Circumflex coronary artery is dominant in distribution and gives rise to good-sized PDA and PLV branch. Right coronary artery is small and nondominant. FINAL IMPRESSION: This study shows a patent stent in the mid LAD. Mild irregularity noted. Circumflex coronary artery is normal. Right coronary artery is small and dominant. RECOMMENDATIONS: Continue medical treatment. MMODL / IJN: [id number] /
[2018-11-11] MEDS ORDERED: ACETAMINOPHEN TAB 325 MG TAB PO STA (13:09)
[2018-11-11 15:02] VITALS: BP 126/59; PULSE 64
[2018-11-11] MEDS ORDERED: LISINOPRIL 20 MG TAB PO SCH (18:00)
[2018-11-11] MEDS ORDERED: ATORVASTATIN 80 MG TAB PO SCH (21:00)
[2018-11-11] MEDS ORDERED: PANTOPRAZOLE 40 MG TABLET PO SCH (21:00)
[2018-11-11] MEDS ORDERED: ATENOLOL 50 MG TAB PO SCH (21:00)
[2018-11-12] MEDS ORDERED: LEVOTHYROXINE 112 MCG TAB PO SCH (06:30)
[2018-11-12] MEDS ORDERED: ASPIRIN 81 MG PO SCH (09:00)
[2018-11-12] MEDS ORDERED: CHOLECALCIFEROL 1,000 UNIT TAB PO SCH (09:00)
[2018-11-12] MEDS ORDERED: APIXABAN 5 MG TAB PO SCH (09:00)
[2018-11-12] MEDS ORDERED: ASCORBIC ACID 500 MG TAB PO SCH (09:00)
[2018-11-12] MEDS ORDERED: MAGNESIUM OXIDE 400 MG TAB PO SCH (09:00)
[2018-11-12] MEDS ORDERED: FLAXSEED 1000 MG PO SCH (09:00)
[2018-11-12] MEDS ORDERED: amLODIPine 5 MG TAB PO SCH (09:00)
[2018-11-12] MEDS ORDERED: NON-FORMULARY DRUG (Vitamin B Complex [Vitamin B Complex] 1 CAP) PO SCH (09:00)
[2018-11-12] MEDS ORDERED: MULTIVITAMINS, THERA 1 EACH TAB PO SCH (12:00)
== END 2018-11-11 18:00 | disposition home or self-care (01) ==
LOC: CATHCVL 09:19
PROVIDERS: ATTEND Internal Medicine Cardiovascular Disease
DX: I25.10 Atherosclerotic heart disease of native coronary artery without angina pectoris (principal); I48.0 Paroxysmal atrial fibrillation; I12.9 Hypertensive chronic kidney disease with stage 1 through stage 4 chronic kidney disease, or unspecified chronic kidney disease; N18.9 Chronic kidney disease, unspecified; Z95.5 Presence of coronary angioplasty implant and graft; R73.03 Prediabetes; K21.9 Gastro-esophageal reflux disease without esophagitis; E78.5 Hyperlipidemia, unspecified; E03.9 Hypothyroidism, unspecified; Z87.442 Personal history of urinary calculi; Z80.8 Family history of malignant neoplasm of other organs or systems; Z79.01 Long term (current) use of anticoagulants; Z79.82 Long term (current) use of aspirin; Z79.890 Hormone replacement therapy; Z79.899 Other long term (current) drug therapy
CPT/HCPCS: 93458; C1760; C1894; C1769 ×2; J2250; J2001; J3010; Q9967

== ENCOUNTER 2018-12-04 08:30 | Emergency (ER) | payer MEDICARE ==
[2018-12-04 08:33] VITALS: RESP 18; TEMP 98.5
--- NOTE | 2018-12-04 08:45 | ED ---
Lower Extremity Injury HPI - General Chief Complaint: Extremity Injury, Lower Stated Complaint: Arm & Leg Injury Time Seen by Provider: 12/04/18 08:34 Source: patient, RN notes reviewed, old records reviewed Mode of arrival: ambulatory Limitations: no limitations - History of Present Illness Initial Comments: 63 year old male presents emergency department today with complaints of left elbow pain and left phan pain. Patient reports that he was out side lifting logs yesterday. He reports that a 60 pound log fell and hit his left lower phan. He reports significant bruising and pain with ambulation. Patient also states that later on he was lifting a log and felt a snap within his left elbow and upper arm. Patient reports that he does have full range of motion of the arm. He states that he has some pain with flexion and extension. He reports that he has no pain with pronation and supination. He denies any chest pain shortness of breath, nausea or vomiting. He is on blood thinners due to a history of intermittent A. fib. - Related Data Home Medications Medication Instructions Recorded Confirmed Atenolol [Tenormin] 50 mg PO BID 05/06/14 12/04/18 Levothyroxine Sodium [Synthroid] 112 mcg PO QAM 05/06/14 12/04/18 Lisinopril [Zestril] 20 mg PO BID 05/06/14 12/04/18 Ascorbic Acid [Vitamin C] 500 mg PO BID 09/09/14 12/04/18 Cholecalciferol [Vitamin D3] 5,000 units PO DAILY 09/09/14 12/04/18 Magnesium 400 mg PO DAILY 09/09/14 12/04/18 Multivitamin [Men's Multi-Vitamin] 1 tab PO DAILY 09/09/14 12/04/18 Omeprazole [PriLOSEC] 20 mg PO HS 09/09/14 12/04/18 Vitamin B Complex 1 cap PO DAILY 09/09/14 12/04/18 amLODIPine BESYLATE [Norvasc] 5 mg PO DAILY 09/09/14 12/04/18 Flaxseed [Flaxseed Oil] 1,000 mg PO DAILY 09/17/15 12/04/18 Previous Rx's Medication Instructions Recorded Aspirin EC [Ecotrin Low Dose] 81 mg PO DAILY #30 tablet. 12/20/14 Atorvastatin [Lipitor] 80 mg PO HS #30 tab 12/20/14 Nitroglycerin Sl Tabs [Nitrostat] 0.4 mg SUBLINGUAL Q5M PRN #25 tab 12/20/14 Apixaban [Eliquis] 5 mg PO BID #60 tab 10/24/18 Flecainide [Tambocor] 50 mg PO Q12HR #60 tablet 11/11/18 Allergies Allergy/AdvReac Type Severity Reaction Status Date / Time amiodarone [From Cordarone] Allergy Dyspnea Verified 12/04/18 09:18 Review of Systems ROS Statement: Those systems with pertinent positive or pertinent negative responses have been documented in the HPI. ROS Other: All systems not noted in ROS Statement are negative. Past Medical History Past Medical History: Atrial Fibrillation, Coronary Artery Disease (CAD), Chest Pain / Angina, GERD/Reflux, Hyperlipidemia, Hypertension, Thyroid Disorder Additional Past Medical History / Comment(s): Past episode of Afib, antral ul cer, hypothyroid, vertigo rarely, nephrolithiasis-passed stones on own and surgically removed once, R torn meniscus now healed, pre cancerous skin lesions, currently R ear is plugged, pancreatitis once following procedure to check liver d/t elevated liver function tests. History of Any Multi-Drug Resistant Organisms: None Reported Past Surgical History: Heart Catheterization With Stent, Hernia Repair, Orthopedic Surgery, Tonsillectomy Additional Past Surgical History / Comment(s): Percutaneous coronary intervention with stent, L inguinal hernia repair R tip of thumb amputation, cystoscopy with laser for kidney stone, EGDs, colonoscopy, Yolis septoplasty. Cardiac cath x2 with stent. Past Anesthesia/Blood Transfusion Reactions: No Reported Reaction Additional Past Anesthesia/Blood Transfusion Reaction / Comment(s): NO PROBLEM WITH ANESTHESIA AND NEVER RECEIVED BLOOD. Date of Last Stent Placement:: 12/19/2014 Past Psychological History: Anxiety Smoking Status: Never smoker Past Alcohol Use History: None Reported Past Drug Use History: None Reported - Past Family History Father Family Medical History: Cancer Additional Family Medical History / Comment(s): FATHER AT AGE 75 OF [place] CA/METS TO BRAIN/KIDNEY Mother Family Medical History: AFIB Additional Family Medical History / Comment(s): MOTHER IS LIVING. General Exam Limitations: no limitations General appearance: alert, in no apparent distress Head exam: Present: atraumatic, normocephalic, normal inspection Eye exam: Present: normal appearance, PERRL, EOMI. Absent: scleral icterus, conjunctival injection, periorbital swelling ENT exam: Present: normal exam, mucous membranes moist Neck exam: Present: normal inspection. Absent: tenderness, meningismus, lymphadenopathy Respiratory exam: Present: normal lung sounds bilaterally. Absent: respiratory distress, wheezes, rales, rhonchi, stridor Cardiovascular Exam: Present: regular rate, normal rhythm, normal heart sounds. Absent: systolic murmur, diastolic murmur, rubs, gallop, clicks GI/Abdominal exam: Present: soft, normal bowel sounds. Absent: distended, tenderness, guarding, rebound, rigid Left Elbow exam: Present: normal inspection, full ROM, tenderness (Asians tenderness over the brachial radialis. Full flexion and extension noted.) Forearm Wrist exam: Present: normal inspection, full ROM Hand Wrist exam: Present: normal inspection, full ROM Left Lower Leg exam: Present: full ROM, ecchymosis (Patient has a 6 cm x 4 cm contusion over the anterior phan.). Absent: normal inspection Ankle exam: Present: normal inspection, full ROM Foot/Toe exam: Present: normal inspection, full ROM Back exam: Present: normal inspection Neurological exam: Present: alert, oriented X3, CN II-XII intact Psychiatric exam: Present: normal affect, normal mood Skin exam: Present: warm, dry, intact, normal color. Absent: rash Course Vital Signs 12/04/18 08:31 Temperature 98.5 F Pulse Rate 63 Respiratory 18 Rate Blood Pressure 128/68 O2 Sat by Pulse 98 Oximetry Medical Decision Making - Medical Decision Making 63-year-old male presents return today tingling of left leg and left elbow injury after lifting logs. A heavy log hit his anterior phan. He also reports he felt a popping sensation with lifting heavy logs with his left elbow. Patient has tenderness over the brachial radialis. Biceps tendon is intact. He has full range of motion of the elbow. X-rays of the tib-fib and elbow were completed. Tib-fib is normal. X-ray of the elbow shows some soft tissue swelling and may benefit from MRI. Patient has been advised to follow-up with orthopedic and take anti-inflammatory medication for pain. Discussed icing the areas as well. All questions were answered and return parameters were discussed. - Radiology Data Radiology results: report reviewed No fracture dislocation. As indicated above MRI may be of benefit. There is questionable soft tissue swelling and prominence of the biceps region. Tib-fib x-ray shows no fracture dislocation. Disposition Clinical Impression: Tenderness of brachioradialis muscle, Contusion of left leg Disposition: HOME SELF-CARE Condition: Good Instructions (If sedation given, give patient instructions): Elbow Sprain (ED), Contusion in Adults (ED) Additional Instructions: Patient advised alternating between Motrin and Tylenol for acute pain. Ice the areas. Follow-up with orthopedic symptoms continue to persist over the next 3-4 days. Patient should wear Charles wrap to help with depression and swelling of the left elbow. Return to the emergency department if any alarming signs or symptoms occur. Is patient prescribed a controlled substance at d/c from ED?: No Referrals: Juanpablo Vincent DO [Primary Care Provider] - 1-2 days Alonso Rubalcava DO [Doctor of Osteopathic Medicine] - 1-2 days Time of Disposition: 09:38
--- NOTE | 2018-12-04 09:03 | XR ---
Right elbow HISTORY: Injury, pain 3 views of the right elbow Bone mineralization, joint spaces, alignment are maintained. No evident joint effusion. Question soft tissue swelling, prominence of the biceps region. IMPRESSION: No fracture or dislocation. As indicated elbow MRI may be of benefit.
--- NOTE | 2018-12-04 09:11 | XR ---
Left leg HISTORY: Trauma and pain 2 views of the left leg on 3 images There is soft tissue swelling. Bone mineralization, joint spaces and alignment are maintained. There is a plantar calcaneal spur. Enthesophyte at the insertion of the Achilles tendon. Spurring present a t the intertarsal joints. IMPRESSION: No fracture or dislocation.
[2018-12-04 09:50] VITALS: BP 113/67; PULSE 59
== END 2018-12-04 09:50 | disposition home or self-care (01) ==
LOC: EC 08:30
DX: S80.12XA Contusion of left lower leg, initial encounter (principal); S59.902A Unspecified injury of left elbow, initial encounter; I48.91 Unspecified atrial fibrillation; I25.10 Atherosclerotic heart disease of native coronary artery without angina pectoris; K21.9 Gastro-esophageal reflux disease without esophagitis; I10 Essential (primary) hypertension; E03.9 Hypothyroidism, unspecified; Z95.5 Presence of coronary angioplasty implant and graft; Z79.890 Hormone replacement therapy; Z79.899 Other long term (current) drug therapy; Z88.8 Allergy status to other drugs, medicaments and biological substances; W20.8XXA Other cause of strike by thrown, projected or falling object, initial encounter; X50.0XXA Overexertion from strenuous movement or load, initial encounter; Y93.89 Activity, other specified; Y92.009 Unspecified place in unspecified non-institutional (private) residence as the place of occurrence of the external cause
CPT/HCPCS: 99284

== ENCOUNTER 2019-09-21 10:24 | Day surgery (SDC) | payer MEDICARE ==
[2019-09-17 11:42] VITALS: BMI 31.9
[~2019-09-21 10:24] MED LIST changes: -ALPRAZolam 0.25 MG TAB PO PRN; -ALPRAZolam 0.5 MG TAB PO PRN; -ASPIRIN 325 MG TAB PO STA; -ATORVASTATIN 80 MG TAB PO STA; +LACTATED RINGERS 1,000 ML IV SCH; +LIDOCAINE 1% 20 ML VIAL (10MG/ML) FOR IV START INTRADERMA PRN; -NITROGLYCERIN SL TABS 0.4 MG TAB SUBLINGUAL PRN; -SODIUM CHLORIDE 0.9% 1,000 ML in EMPTY BAG 1 BAG IV ONE
[2019-09-21 11:43] VITALS: RESP 16; TEMP 97.8
[2019-09-21] MEDS ORDERED: PROPOFOL 10 MG/ML 20 ML VIAL IV ONE (11:56)
--- NOTE | 2019-09-21 12:28 | P.PCN ---
Date of Procedure: 09/21/19 Description of Procedure: BRIEF HISTORY: Patient is a 63-year-old male who presents for outpatient colonoscopy for screening for malignant neoplasm colon. Last colonoscopy 10 years ago and normal per his recollection. No change in bowel habits, blood per rectum or abdominal pain reported. No family history of colon cancer. PROCEDURE PERFORMED: Colonoscopy with polypectomy. PREOPERATIVE DIAGNOSIS: Screening for malignant neoplasm colon, last colonoscopy 10 years ago.. ESTIMATED BLOOD LOSS: Minimal. IV sedation per Anesthesia. PROCEDURE: After informed consent was obtained, the patient, was brought into the endoscopy unit. IV sedation was administered by Anesthesia under continuous monitoring. Digital rectal examination was normal. Initially the Olympus CF-190 flexible video colonoscope was then inserted in the rectum, gradually advanced into the cecum without any difficulty. Careful examination was performed as the scope was gradually being withdrawn. Ileocecal valve and the appendiceal orifice were visualized and appeared normal. Prep was excellent. Mucosa of the cecum, ascending colon, transverse colon, descending colon, sigmoid colon, and rectum appeared normal. Flat 8 mm ascending colon polyp removed with hot snare polypectomy. 3 mm sessile hepatic flexure polyp removed with cold snare polypectomy. A few scattered diverticula noted in the sigmoid colon. Retroflexion was performed in the rectum and no lesions were seen. The patient tolerated the procedure well. IMPRESSION: Polypectomy of ascending colon polyp using hot snare and hepatic flexure polyp using cold snare. Mild sigmoid diverticulosis. RECOMMENDATIONS: Findings of this examination were discussed with the patient and his . Okay to resume diet. Okay to resume medications today and anticoagulation tomorrow. Recommend repeat colonoscopy in 5 years pending pathology from polypectomies.
[2019-09-21 12:48] VITALS: BP 132/77; PULSE 53
== END 2019-09-21 13:20 | disposition home or self-care (01) ==
LOC: ORWHC2ENDO 10:24
PROVIDERS: ATTEND Internal Medicine
DX: Z12.11 Encounter for screening for malignant neoplasm of colon (principal); D12.2 Benign neoplasm of ascending colon; D12.3 Benign neoplasm of transverse colon; K57.30 Diverticulosis of large intestine without perforation or abscess without bleeding; I10 Essential (primary) hypertension; I25.119 Atherosclerotic heart disease of native coronary artery with unspecified angina pectoris; E78.5 Hyperlipidemia, unspecified; I48.91 Unspecified atrial fibrillation; F41.9 Anxiety disorder, unspecified; K21.9 Gastro-esophageal reflux disease without esophagitis; Z88.8 Allergy status to other drugs, medicaments and biological substances; Z87.442 Personal history of urinary calculi; Z79.899 Other long term (current) drug therapy; Z79.890 Hormone replacement therapy; Z79.82 Long term (current) use of aspirin; Z79.01 Long term (current) use of anticoagulants; Z98.890 Other specified postprocedural states; Z90.89 Acquired absence of other organs; Z95.5 Presence of coronary angioplasty implant and graft; Z87.19 Personal history of other diseases of the digestive system; Z80.8 Family history of malignant neoplasm of other organs or systems
CPT/HCPCS: 88305; 45385; J2704

== ENCOUNTER 2020-04-20 11:59 | Observation (INO) | payer MEDICARE ==
[2020-04-20] MEDS ORDERED: SODIUM CHLORIDE 0.9% 500 ML 500 ML IV ONE (12:27)
--- NOTE | 2020-04-20 12:44 | ED ---
General Adult HPI - General Chief complaint: Chest Pain Stated complaint: AFIB Time Seen by Provider: 04/20/20 12:19 Source: patient, RN notes reviewed, old records reviewed Mode of arrival: wheelchair Limitations: no limitations - History of Present Illness Initial comments: 64-year-old male history of atrial fibrillation, CAD, hypertension presenting for evaluation of chest pressure and palpitations. Symptoms have been ongoing for the past 4 days. He had seen his expediter on Friday and states that his symptoms developed Friday evening. He states that he is typically in sinus rhythm and has intermittent episodes of atrial fibrillation. He is on flecainide, Eliquis, atenolol and 2 additional blood pressure medications. He does report some exertional dyspnea. No fever. No cough. No lower extremity pain or swelling. No central radiating chest pain. - Related Data Home Medications Medication Instructions Recorded Confirmed Levothyroxine Sodium [Synthroid] 112 mcg PO QAM 05/06/14 04/20/20 atenoloL [Tenormin] 50 mg PO BID 05/06/14 04/20/20 lisinopriL [Zestril] 20 mg PO BID@1200,1800 05/06/14 04/20/20 Ascorbic Acid [Vitamin C] 1,000 mg PO DAILY 09/09/14 04/20/20 Omeprazole [PriLOSEC] 20 mg PO HS 09/09/14 04/20/20 Vitamin B Complex 1 cap PO DAILY 09/09/14 04/20/20 amLODIPine BESYLATE [Norvasc] 5 mg PO DAILY 09/09/14 04/20/20 Flaxseed [Flaxseed Oil] 1,000 mg PO DAILY 09/17/15 04/20/20 Meclizine [Antivert] 25 mg PO BID PRN 09/17/19 04/20/20 Cholecalciferol [Vitamin D3] 400 unit PO DAILY 04/20/20 04/20/20 Multivit-Min/FA/Lycopen/Lutein 1 tab PO DAILY 04/20/20 04/20/20 [Centrum Silver Tablet] Previous Rx's Medication Instructions Recorded Aspirin EC [Ecotrin Low Dose] 81 mg PO DAILY #30 tablet. 12/20/14 Atorvastatin [Lipitor] 80 mg PO HS #30 tab 12/20/14 Nitroglycerin Sl Tabs [Nitrostat] 0.4 mg SUBLINGUAL Q5M PRN #25 tab 12/20/14 Apixaban [Eliquis] 5 mg PO BID #60 tab 10/24/18 Flecainide [Tambocor] 50 mg PO Q12HR #60 tablet 11/11/18 Allergies Allergy/AdvReac Type Severity Reaction Status Date / Time amiodarone [From Cordarone] Allergy Dyspnea Verified 04/20/20 13:43 Review of Systems ROS Statement: Those systems with pertinent positive or pertinent negative responses have been documented in the HPI. ROS Other: All systems not noted in ROS Statement are negative. Past Medical History Past Medical History: Atrial Fibrillation, Coronary Artery Disease (CAD), Chest Pain / Angina, GERD/Reflux, Hyperlipidemia, Hypertension, Thyroid Disorder Additional Past Medical History / Comment(s): hx. antral ulcer, hypothyroid, vertigo rarely, nephrolithiasis-passed stones on own and surgically removed once, pancreatitis once following procedure to check liver d/t elevated liver function tests, "fatty liver" History of Any Multi-Drug Resistant Organisms: None Reported Past Surgical History: Heart Catheterization With Stent, Hernia Repair, Orthopedic Surgery, Tonsillectomy Additional Past Surgical History / Comment(s): L inguinal hernia repair, R tip of thumb amputation, cystoscopy with laser for kidney stone, EGDs, colonoscopy, Yolis septoplasty. Past Anesthesia/Blood Transfusion Reactions: No Reported Reaction Additional Past Anesthesia/Blood Transfusion Reaction / Comment(s): NEVER RECEIVED BLOOD. Date of Last Stent Placement:: 12/19/2014 Past Psychological History: No Psychological Hx Reported Smoking Status: Never smoker Past Alcohol Use History: None Reported Past Drug Use History: None Reported - Past Family History Father Family Medical History: Cancer Additional Family Medical History / Comment(s): FATHER AT AGE 75 OF [place] CA/METS TO BRAIN/KIDNEY Mother Family Medical History: AFIB Additional Family Medical History / Comment(s): MOTHER IS LIVING. General Exam Limitations: no limitations General appearance: alert, in no apparent distress Head exam: Present: atraumatic, normocephalic Eye exam: Present: normal appearance, PERRL ENT exam: Present: normal exam Neck exam: Present: normal inspection. Absent: tenderness, meningismus Respiratory exam: Present: normal lung sounds bilaterally. Absent: respiratory distress, wheezes Cardiovascular Exam: Present: regular rate, irregular rhythm GI/Abdominal exam: Present: soft. Absent: distended, tenderness, guarding Extremities exam: Present: normal inspection, normal capillary refill. Absent: pedal edema, calf tenderness Neurological exam: Present: alert, oriented X3, CN II-XII intact. Absent: motor sensory deficit Psychiatric exam: Present: normal affect, normal mood Skin exam: Present: warm, dry, intact. Absent: cyanosis, diaphoretic Course Vital Signs 04/20/20 04/20/20 04/20/20 12:09 12:19 12:30 Temperature 98.2 F Pulse Rate 83 91 77 Respiratory 18 Rate Blood Pressure 95/65 O2 Sat by Pulse 97 98 97 Oximetry 04/20/20 13:00 Temperature Pulse Rate 92 Respiratory Rate Blood Pressure 101/69 O2 Sat by Pulse 97 Oximetry EKG Findings - EKG Comments: EKG Findings:: EKG: Atrial flutter with variable AV block, rate of 91, QRS duration 102, QTC 467, no ST segment elevation, similar QRS morphology compared to previous EKGs. Medical Decision Making - Medical Decision Making 64-year-old male presenting with chest tightness, dyspnea history of A. fib. He has had palpitations. EKG is atrial fib or flutter no ST segment elevation. Chest x-ray clear no focal pneumonia, no pulmonary edema. Patient has normal CBC, normal electrolytes. Troponin is negative, BNP mildly elevated at 1800. Patient has known CAD. He is anticoagulated at baseline. He will be placed in observation for serial cardiac enzymes, telemetry, cardiology consultation. Case discussed with Dr. Kaur who will admit. - Lab Data Result diagrams: 04/20/20 12:35 04/20/20 12:35 Lab Results 04/20/20 04/20/20 04/20/20 Range/Units 12:35 12:35 12:35 WBC 6.2 (3.8-10.6) k/uL RBC 4.99 (4.30-5.90) m/uL Hgb 15.8 (13.0-17.5) gm/dL Hct 47.0 (39.0-53.0) % MCV 94.2 (80.0-100.0) fL MCH 31.7 (25.0-35.0) pg MCHC 33.6 (31.0-37.0) g/dL RDW 12.8 (11.5-15.5) % Plt Count 174 (150-450) k/uL Neutrophils % 63 % Lymphocytes % 24 % Monocytes % 8 % Eosinophils % 2 % Basophils % 0 % Neutrophils # 3.9 (1.3-7.7) k/uL Lymphocytes # 1.5 (1.0-4.8) k/uL Monocytes # 0.5 (0-1.0) k/uL Eosinophils # 0.1 (0-0.7) k/uL Basophils # 0.0 (0-0.2) k/uL PT 10.4 (9.0-12.0) sec INR 1.0 (<1.2) APTT 25.2 (22.0-30.0) sec Sodium 139 (137-145) mmol/L Potassium 4.1 (3.5-5.1) mmol/L Chloride 110 H (98-107) mmol/L Carbon Dioxide 20 L (22-30) mmol/L Anion Gap 9 mmol/L BUN 16 (9-20) mg/dL Creatinine 0.95 (0.66-1.25) mg/dL Est GFR (CKD-EPI)AfAm >90 (>60 ml/min/1.73 sqM) Est GFR (CKD-EPI)NonAf 84 (>60 ml/min/1.73 sqM) Glucose 123 H (74-99) mg/dL Calcium 9.4 (8.4-10.2) mg/dL Magnesium 2.2 (1.6-2.3) mg/dL Total Bilirubin 1.2 (0.2-1.3) mg/dL AST 36 (17-59) U/L ALT 47 (4-49) U/L Alkaline Phosphatase 80 (38-126) U/L Troponin I (0.000-0.034) ng/mL NT-Pro-B Natriuret Pep pg/mL Total Protein 6.6 (6.3-8.2) g/dL Albumin 4.4 (3.5-5.0) g/dL 04/20/20 04/20/20 Range/Units 12:35 12:35 WBC (3.8-10.6) k/uL RBC (4.30-5.90) m/uL Hgb (13.0-17.5) gm/dL Hct (39.0-53.0) % MCV (80.0-100.0) fL MCH (25.0-35.0) pg MCHC (31.0-37.0) g/dL RDW (11.5-15.5) % Plt Count (150-450) k/uL Neutrophils % % Lymphocytes % % Monocytes % % Eosinophils % % Basophils % % Neutrophils # (1.3-7.7) k/uL Lymphocytes # (1.0-4.8) k/uL Monocytes # (0-1.0) k/uL Eosinophils # (0-0.7) k/uL Basophils # (0-0.2) k/uL PT (9.0-12.0) sec INR (<1.2) APTT (22.0-30.0) sec Sodium (137-145) mmol/L Potassium (3.5-5.1) mmol/L Chloride (98-107) mmol/L Carbon Dioxide (22-30) mmol/L Anion Gap mmol/L BUN (9-20) mg/dL Creatinine (0.66-1.25) mg/dL Est GFR (CKD-EPI)AfAm (>60 ml/min/1.73 sqM) Est GFR (CKD-EPI)NonAf (>60 ml/min/1.73 sqM) Glucose (74-99) mg/dL Calcium (8.4-10.2) mg/dL Magnesium (1.6-2.3) mg/dL Total Bilirubin (0.2-1.3) mg/dL AST (17-59) U/L ALT (4-49) U/L Alkaline Phosphatase (38-126) U/L Troponin I <0.012 (0.000-0.034) ng/mL NT-Pro-B Natriuret Pep 1810 pg/mL Total Protein (6.3-8.2) g/dL Albumin (3.5-5.0) g/dL Disposition Clinical Impression: Chest pain, Atrial fibrillation, Atrial flutter Disposition: ADMITTED IP TO THIS HOSP Condition: Stable Is patient prescribed a controlled substance at d/c from ED?: No Referrals: Juanpablo Vincent DO [Primary Care Provider] - 1-2 days Decision to Admit Reason: Admit from EC Decision Date: 04/20/20 Decision Time: 14:21
[2020-04-20 12:45] LABS: Basophils % (A) 0 %; Eosinophils # (A) 0.1 k/uL (0-0.7); Eosinophils % (A) 2 %; HGB 15.8 gm/dL (13.0-17.5); Lymphocytes # (A) 1.5 k/uL (1.0-4.8); Lymphocytes % (A) 24 %; MCH 31.7 pg (25.0-35.0); MCHC 33.6 g/dL (31.0-37.0); MCV 94.2 fL (80.0-100.0); Mean Platelet Volume 8.1; Monocytes # (A) 0.5 k/uL (0-1.0); Monocytes % (A) 8 %; Neutrophils # (A) 3.9 k/uL (1.3-7.7); Neutrophils % (A) 63 %; Platelet Count 174 k/uL (150-450); RBC 4.99 m/uL (4.30-5.90); RDW 12.8 % (11.5-15.5); WBC 6.2 k/uL (3.8-10.6)
[2020-04-20 12:53] LABS: ALT 47 U/L (4-49); AST 36 U/L (17-59); African American GFR (CKD) >90 (>60 ml/min/1.73 sqM); Albumin 4.4 g/dL (3.5-5.0); Alkaline Phosphatase 80 U/L (38-126); Anion Gap 9 mmol/L; Blood Urea Nitrogen 16 mg/dL (9-20); Calcium 9.4 mg/dL (8.4-10.2); Carbon Dioxide 20 mmol/L (22-30); Chloride 110 mmol/L (98-107); Glucose 123 mg/dL (74-99); Magnesium 2.2 mg/dL (1.6-2.3); Non-African American GFR(CKD) 84 (>60 ml/min/1.73 sqM); Potassium 4.1 mmol/L (3.5-5.1); Sodium 139 mmol/L (137-145); Total Bilirubin 1.2 mg/dL (0.2-1.3); Total Protein 6.6 g/dL (6.3-8.2)
[2020-04-20 12:57] LABS: Partial Thromboplastin Time 25.2 sec (22.0-30.0); Prothrombin Time 10.4 sec (9.0-12.0)
--- NOTE | 2020-04-20 13:10 | XR ---
EXAMINATION TYPE: XR chest 2V DATE OF EXAM: 04/20/2020 COMPARISON: Chest x-ray 10/23/2018 HISTORY: Chest pain TECHNIQUE: Frontal and lateral views of the chest are obtained. FINDINGS: There is no focal air space opacity, pleural effusion, or pneumothorax seen. The cardiac silhouette size is within normal limits. There are overlying cardiac leads. The osseous structures a re intact, there is thoracic spondylosis.. IMPRESSION: No acute cardiopulmonary process.
[2020-04-20] MEDS ORDERED: ACETAMINOPHEN TAB 325 MG TAB PO PRN (14:13)
[2020-04-20] MEDS ORDERED: NALOXONE 0.4 MG/ML 1 ML VIAL IV PRN (14:13)
[2020-04-20] MEDS ORDERED: NITROGLYCERIN SL TABS 0.4 MG TAB SUBLINGUAL PRN (14:18)
[2020-04-20] MEDS: lisinopriL 20 MG TAB PO SCH (17:55)
[2020-04-20] MEDS ORDERED: ATORVASTATIN 80 MG TAB PO SCH (21:00)
[2020-04-20] MEDS ORDERED: FLECAINIDE 50 MG TAB PO SCH (21:00)
[2020-04-20] MEDS: atenoloL 50 MG TAB PO SCH (21:13)
[2020-04-20] MEDS: APIXABAN 5 MG TAB PO SCH (21:13)
[2020-04-21] MEDS ORDERED: LEVOTHYROXINE 112 MCG TAB PO SCH (06:30)
[2020-04-21] MEDS ORDERED: AMINOPHYLLINE 500 MG/20 ML VIAL IV PRN (08:45)
[2020-04-21] MEDS ORDERED: CAFFEINE CITRATE 60 MG/3 ML VIAL IV PRN (08:45)
[2020-04-21] MEDS ORDERED: ASPIRIN 81 MG PO SCH (09:00)
[2020-04-21] MEDS ORDERED: REGADENOSON 0.4 MG/5 ML SYRINGE IV ONE (09:00)
[2020-04-21 09:17] VITALS: RESP 18
--- NOTE | 2020-04-21 10:16 | P.CRDCN ---
History of Present Illness History of present illness: HISTORY OF PRESENTING ILLNESS This is a pleasant 64-year-old male past medical history significant for coronary artery disease status post PCI to the LAD in 2014, paroxysmal atrial fibrillation on long-term anticoagulation, dyslipidemia and hypertension. He follows in the office with Dr. Sawyer. We have been asked to see in consultation for chest pain. He states for the previous 3-4 days he has been experiencing symptoms of increased fatigue, palpitations and a discomfort in his chest. His symptoms are not related to exertion or activity. He feels like he is in A. fib. He is currently maintained on flecainide. On admission EKG reveals atrial fibrillation with controlled ventricular response. He most recently underwent a cardiac catheterization in [address] Montes De Oca revealing a patent stent in the LAD with no other significant obstructive disease. He saw Dr. Sawyer in the office April 10 and at that time also complained of feeling mildly short of breath at times with increased fatigue. He was scheduled to undergo a stress test in the office next month. DIAGNOSTICS EKG reveals troponin fibrillation with a heart rate of [address] abnormalities and T-wave inversions in the inferior lateral. Chest xray negative for any acute cardiopulmonary process. Laboratory reviewed, CBC unremarkable, sodium 139, potassium 4.1, creatinine 0.95, magnesium 2.2, cardiac enzymes negative 3, NT proBNP 1810 and TSH 2.69. Current cardiac medications include atorvastatin 80 mg daily, lisinopril 20 mg twice a day, Eliquis 5 mg twice a day, aspirin 81 mg daily, flecainide 50 mg twice a day, amlodipine 5 mg daily and atenolol 50 mg twice a day. REVIEW OF SYSTEMS At the time of my exam: CONSTITUTIONAL: Denies fever or chills. CARDIOVASCULAR: Denies chest pain, shortness of breath, orthopnea, PND or palpitations. RESPIRATORY: Denies cough. GASTROINTESTINAL: Denies abdominal pain, diarrhea, constipation, nausea or vomiting. MUSCULOSKELETAL: Denies myalgias. NEUROLOGIC: Denies numbness, tingling or weakness. ENDOCRINE: Denies fatigue, weight change, polydipsia or polyurina. GENITOURINARY: Denies burning, hematuria or urgency with micturation. HEMATOLOGIC: Denies history of anemia or bleeding. PHYSICAL EXAMINATION Blood pressure 124/77 heart rate 106 afebrile and maintaining oxygen saturation on room air. CONSTITUTIONAL: No apparent distress. HEENT: Head is normocephalic. Pupils are equal, round. Sclerae anicteric. Mucous membranes of the mouth are moist. No JVD. No carotid bruit. CHEST EXAMINATION: Lungs are clear to auscultation. No chest wall tenderness is noted on palpation or with deep breathing. HEART EXAMINATION: Irregular rate and rhythm. S1, S2 heard. No murmurs, gallops or rub. ABDOMEN: Soft, nontender. Positive bowel sounds. EXTREMITIES: 2+ peripheral pulses, no lower extremity edema and no calf tenderness. NEUROLOGIC EXAMINATION: Patient is awake, alert and oriented x3. ASSESSMENT Chest pain and palpitations, atypical for angina. An acute coronary event has been ruled out. Paroxysmal atrial fibrillation, currently in A. fib with controlled rate. Hypertension Dyslipidemia Coronary artery disease status post PCI of the mid LAD 2014 PLAN An acute coronary event is from ruled out. Given his history of coronary artery disease we will discontinue flecainide. Obtain 2-D echocardiogram and Doppler study to assess cardiac structure and function. Perform Lexiscan stress test to assess for reversible stress-induced ischemia. If reversibility is noted we will proceed with cardiac catheterization. This h as been explained to the patient and his in great detail. Questions have been answered appropriately. Hold Eliquis until results of stress test. Further recommendations to follow based upon clinical course. Thank you kindly for this consultation. Nurse Practitioner note has been reviewed, I agree with a documented findings and plan of care. Patient was seen and examined. Past Medical History Past Medical History: Atrial Fibrillation, Coronary Artery Disease (CAD), Chest Pain / Angina, GERD/Reflux, Hyperlipidemia, Hypertension, Thyroid Disorder Additional Past Medical History / Comment(s): hx. antral ulcer, hypothyroid, vertigo rarely, nephrolithiasis-passed stones on own and surgically removed once, pancreatitis once following procedure to check liver d/t elevated liver function tests, "fatty liver" History of Any Multi-Drug Resistant Organisms: None Reported Past Surgical History: Heart Catheterization With Stent, Hernia Repair, Orthopedic Surgery, Tonsillectomy Additional Past Surgical History / Comment(s): L inguinal hernia repair, R tip of thumb amputation, cystoscopy with laser for kidney stone, EGDs, colonoscopy, [place] septoplasty. one cardiac stent. Past Anesthesia/Blood Transfusion Reactions: No Reported Reaction Additional Past Anesthesia/Blood Transfusion Reaction / Comment(s): NEVER RECEIVED BLOOD. Date of Last Stent Placement:: 12/19/2014 Past Psychological History: No Psychological Hx Reported Additional Psychological History / Comment(s): PT LIVES WITH AT HOME. HE IS RETIRED FROM [employer]. Smoking Status: Never smoker Past Alcohol Use History: None Reported Past Drug Use History: None Reported - Past Family History Father Family Medical History: Cancer Additional Family Medical History / Comment(s): FATHER AT AGE 75 OF [place] CA/METS TO BRAIN/KIDNEY Mother Family Medical History: AFIB Additional Family Medical History / Comment(s): MOTHER IS LIVING. Medications and Allergies Home Medications Medication Instructions Recorded Confirmed Type Levothyroxine Sodium [Synthroid] 112 mcg PO QAM 05/06/14 04/20/20 History atenoloL [Tenormin] 50 mg PO BID 05/06/14 04/20/20 History lisinopriL [Zestril] 20 mg PO BID@1200,1800 05/06/14 04/20/20 History Ascorbic Acid [Vitamin C] 1,000 mg PO DAILY 09/09/14 04/20/20 History Omeprazole [PriLOSEC] 20 mg PO HS 09/09/14 04/20/20 History Vitamin B Complex 1 cap PO DAILY 09/09/14 04/20/20 History amLODIPine BESYLATE [Norvasc] 5 mg PO DAILY 09/09/14 04/20/20 History Aspirin EC [Ecotrin Low Dose] 81 mg PO DAILY #30 tablet. 12/20/14 04/20/20 Rx Atorvastatin [Lipitor] 80 mg PO HS #30 tab 12/20/14 04/20/20 Rx Nitroglycerin Sl Tabs [Nitrostat] 0.4 mg SUBLINGUAL Q5M PRN #25 tab 12/20/14 04/20/20 Rx Flaxseed [Flaxseed Oil] 1,000 mg PO DAILY 09/17/15 04/20/20 History Apixaban [Eliquis] 5 mg PO BID #60 tab 10/24/18 04/20/20 Rx Flecainide [Tambocor] 50 mg PO Q12HR #60 tablet 11/11/18 04/20/20 Rx Meclizine [Antivert] 25 mg PO BID PRN 09/17/19 04/20/20 History Cholecalciferol [Vitamin D3] 400 unit PO DAILY 04/20/20 04/20/20 History Multivit-Min/FA/Lycopen/Lutein 1 tab PO DAILY 04/20/20 04/20/20 History [Centrum Silver Tablet] Allergies Allergy/AdvReac Type Severity Reaction Status Date / Time amiodarone [From Cordarone] Allergy Dyspnea Verified 04/20/20 13:43 Physical Exam Vitals: Vital Signs Temp Pulse Pulse Resp BP BP Pulse Ox 04/21/20 09:00 97.7 F 106 H 18 124/77 99 04/21/20 04:25 97.9 F 98 14 113/72 96 04/20/20 20:55 98 F 83 16 122/82 96 04/20/20 17:53 113/78 04/20/20 15:49 83 14 04/20/20 15:22 98.0 F 83 14 117/83 95 04/20/20 15:00 73 102/78 98 04/20/20 14:30 105 H 99/86 98 04/20/20 14:00 105 H 95/72 97 04/20/20 13:30 75 104/69 97 04/20/20 13:00 92 101/69 97 04/20/20 12:30 77 97 04/20/20 12:19 91 98 04/20/20 12:09 98.2 F 83 18 95/65 97 Intake and Output 04/20/20 04/21/20 04/21/20 22:59 06:59 14:59 Intake Total 125 Balance 125 Intake: Oral 125 Other: Voiding Method Toilet Toilet Toilet # Voids 1 1 1 Weight 92.079 kg Results 04/20/20 12:35 04/20/20 12:35 Cardiac Enzymes 04/20/20 04/20/20 04/20/20 Range/Units 12:35 12:35 15:15 AST 36 (17-59) U/L Troponin I <0.012 <0.012 (0.000-0.034) ng/mL 04/20/20 Range/Units 18:33 AST (17-59) U/L Troponin I <0.012 (0.000-0.034) ng/mL Coagulation 04/20/20 Range/Units 12:35 PT 10.4 (9.0-12.0) sec APTT 25.2 (22.0-30.0) sec CBC 04/20/20 Range/Units 12:35 WBC 6.2 (3.8-10.6) k/uL RBC 4.99 (4.30-5.90) m/uL Hgb 15.8 (13.0-17.5) gm/dL Hct 47.0 (39.0-53.0) % Plt Count 174 (150-450) k/uL Comprehensive Metabolic Panel 04/20/20 Range/Units 12:35 Sodium 139 (137-145) mmol/L Potassium 4.1 (3.5-5.1) mmol/L Chloride 110 H (98-107) mmol/L Carbon Dioxide 20 L (22-30) mmol/L BUN 16 (9-20) mg/dL Creatinine 0.95 (0.66-1.25) mg/dL Glucose 123 H (74-99) mg/dL Calcium 9.4 (8.4-10.2) mg/dL AST 36 (17-59) U/L ALT 47 (4-49) U/L Alkaline Phosphatase 80 (38-126) U/L Total Protein 6.6 (6.3-8.2) g/dL Albumin 4.4 (3.5-5.0) g/dL Current Medications Generic Name Dose Route Start Last Admin Trade Name Freq PRN Reason Stop Dose Admin Acetaminophen 650 mg 04/20/20 14:13 Tylenol Tab PO Q6HR PRN Mild Pain or Fever > 100.5 Aminophylline 100 mg 04/21/20 08:45 Aminophylline IV 04/22/20 08:46 ONCE PRN Patient Response Apixaban 5 mg 04/20/20 21:00 04/20/20 21:13 Eliquis PO 5 mg BID RENUKA Administration Aspirin 81 mg 04/21/20 09:00 Aspirin PO DAILY RENUKA Atenolol 50 mg 04/20/20 21:00 04/20/20 21:13 Tenormin PO 50 mg BID RENUKA Administration Atorvastatin Calcium 80 mg 04/20/20 21:00 04/20/20 21:13 Lipitor PO 80 mg HS RENUKA Administration Caffeine Citrate 60 mg 04/21/20 08:45 Cafcit Inj IV 04/27/20 08:46 ONCE PRN Patient Response Levothyroxine Sodium 112 mcg 07/31/20 06:30 04/21/20 06:16 Synthroid PO 112 mcg DAILY@0630 RENUKA Administration Lisinopril 20 mg 04/20/20 18:00 04/20/20 17:55 Zestril PO 20 mg BID@1200,1800 RENUKA Administration Naloxone HCl 0.2 mg 04/20/20 14:13 Narcan IV Q2M PRN Opioid Reversal Nitroglycerin 0.4 mg 04/20/20 14:18 Nitrostat SUBLINGUAL Q5M PRN Chest Pain Intake and Output 04/20/20 04/21/20 04/21/20 22:59 06:59 14:59 Intake Total 125 Balance 125 Intake: Oral 125 Other: Voiding Method Toilet Toilet Toilet # Voids 1 1 1 Weight 92.079 kg 04/20/20 12:35 04/20/20 12:35
--- NOTE | 2020-04-21 10:58 | ECHOF ---
Referral Reason: MEASUREMENTS -------- HEIGHT: 172.7 cm WEIGHT: 92.1 kg BP: 101/69 RVIDd: 3.9 cm (< 3.3) IVSd: 1.6 cm (0.6 - 1.1) LVIDd: 3.0 cm (3.9 - 5.3) LVPWd: 1.7 cm (0.6 - 1.1) IVSs: 1.8 cm LVIDs: 2.0 cm LVPWs: 2.1 cm LAESV Index (A-L): 28.22 ml/m Ao Diam: 2.0 cm (2.0 - 3.7) AV Cusp: 1.2 cm (1.5 - 2.6) MV EXCURSION: 16.432 mm (> 18.000) MV EF SLOPE: 98 mm/s (70 - 150) EPSS: 0.4 cm RAP: 5.00 mmHg RVSP: 20.41 mmHg FINDINGS -------- Atrial fibrillation. This was a technically difficult study with suboptimal apical views. The left ventricular size is normal. There is moderate concentric left ventricular hypertrophy. O verall left ventricular systolic function is low-normal with, an EF between 50 - 55 %. Left ventric ular fillimg pressure cannot be estimated due to Atrial fibrillation. The right ventricle is mild to moderately enlarged. Normal LA size by volume 22+/-6 ml/m2. The right atrium is mildly enlarged. 5.0mg of Lumason was utilized for enhancement of images Interatrial and interventricular septum intact. There is no evidence of aortic regurgitation. There is no evidence of aortic stenosis. There is trace mitral regurgitation. Mild tricuspid regurgitation present. There is no evidence of pulmonary hypertension. The right v entricular systolic pressure, as measured by Doppler, is 20.41mmHg. There is no pulmonic regurgitation present. The aortic root size is normal. Normal inferior vena cava with normal inspiratory collapse consistent with estimated right atrial pre ssure of 5 mmHg. There is no pericardial effusion. CONCLUSIONS -------- 1. Atrial fibrillation. 2. The left ventricular size is normal. 3. There is moderate concentric left ventricular hypertrophy. 4. Overall left ventricular systolic function is low-normal with, an EF between 50 - 55 %. 5. Left ventricular fillimg pressure cannot be estimated due to Atrial fibrillation. 6. The right ventricle is mild to moderately enlarged. 7. The right atrium is mildly enlarged. 8. There is trace mitral regurgitation. 9. Mild tricuspid regurgitation present. WAY INSPECTOR: Lurdes Ruth RDCS
[2020-04-21] MEDS: lisinopriL 20 MG TAB PO SCH (11:27)
[2020-04-21] MEDS: atenoloL 50 MG TAB PO SCH (11:27)
--- NOTE | 2020-04-21 11:56 | NM ---
EXAMINATION TYPE: NM stress lexiscan cardiolite DATE OF EXAM: 04/21/2020 COMPARISON: NONE HISTORY: Precordial chest pain and abnormal EKG TECHNIQUE: After the intravenous administration of 10.1 mCi Tc 99m Sestamibi - Cardiolite resting SP ECT images acquired 45 minutes post injection. The patient received 0.4mg Lexiscan, 25.3 mCi Tc 99m Sestamibi - Stress images obtained [address] injection FINDINGS: Review of stress and rest SPECT images demonstrates no distinct perfusion abnormality. Gated analysi s shows normal wall motion with an estimated left ventricular ejection fraction of 45 %. IMPRESSION: No scintigraphic evidence for reversible ischemia.
[2020-04-21] MEDS: APIXABAN 5 MG TAB PO SCH (12:56)
[2020-04-21 16:17] VITALS: BP 114/65; PULSE 54; TEMP 98
--- NOTE | 2020-04-21 19:03 | EST ---
EXERCISE STRESS AGE: 64 SEX: Male HT: 5'8" WT: 200 PROTOCOL: Lexiscan Cardiolite STAGE: DURATION OF EXERCISE: HEART RATE REST: 98 BLOOD PRESSURE REST: 154/105 MAXIMUM HEART RATE ACHIEVED: 125 MAXIMUM BLOOD PRESSURE: 85% MPHR: 131 100% MPHR: 154 METS: INDICATIONS: Chest pain. CLINICAL INFORMATION: Baseline EKG revealed atrial fibrillation with a moderate ventricular rate, LVH by voltage criteria, nonspecific ST-T changes. With Lexiscan administration, heart rate went from 98 to 120 beats per minute. Blood pressure changed from 154/83 to 110/72. EKG remained inconclusive with nonspecific ST-T wave changes. Rare PVCs were noted. By EKG criteria, this is an inconclusive Lexiscan stress test because of resting EKG changes. The nuclear scan results, which are more pertinent, will be reported by the radiologist. CARLOS / KYLER: [id number] /
--- NOTE | 2020-04-21 23:29 | P.HPIM ---
History of Present Illness H&P Date: 04/21/20 Chief Complaint: Chest pressure History of presenting complaint: This is a very pleasant 64-year-old patient of Dr. Vincent. Also followed with chief concierge Dr. Sawyer. Chronic stable medical conditions include coronary artery disease, GERD, hypertension, hyperlipidemia, hypothyroid, peptic ulcer disease kidney stones. Patient for 3 days noted that he was getting easily short of breath and also noticed some pressure on exertion. No fever or chills. No cough. EKG did show patient to be in atrial flutter fibrillation. Rate controlled. Patient has been maintained on flecainide. 2019 didn't was cardiac cath showed patent stent to the LAD. He was scheduled for a stress test and an outpatient. Review of systems: GEN.: Tired EYES: None HEENT: None NECK: None RESPIRATORY: As above CARDIOVASCULAR: As above GASTROINTESTINAL: None GENITOURINARY: None MUSCULOSKELETAL: None LYMPHATICS: None HEMATOLOGICAL: None PSYCHIATRY: None NEUROLOGICAL: None Past medical history to include: Atrial fibrillation, coronary artery disease, GERD, hypertension, hyperlipidemia, hypothyroid, antral ulcer, kidney stones, fatty liver Social history: , does not smoke, no alcohol. 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 EYES: Pupils equal. Conjunctiva normal. HEENT: External appearance of nose and ears normal, oral cavity grossly normal. NECK: JVD not raised; masses not palpable. HEART: Heart sounds irregular no edema. LUNGS: Respiratory rate normal; clear to auscultation. ABDOMEN: Soft, nontender, liver spleen not palpable, no masses palpable. PSYCH: Alert and oriented x3; mood and affect normal. NEUROLOGICAL: Cranial nerves grossly intact; no facial asymmetry, power and sensation grossly intact. LYMPHATICS: No lymph nodes palpable in the axilla and neck INVESTIGATIONS, reviewed in the clinical context: White count 6.2 hemoglobin 15.8 potassium 4.1 creatinine 0.95 Troponin I 3 negative proBNP 1810 TSH 2.6 EKG tracing personally reviewed by me-atrial flutter fibrillation rate controlled Chest x-ray film personally reviewed by me-lungs clear Assessment: -Possible unstable angina patient known coronary artery disease -Persistent atrial flutter fibrillation rate controlled -Coronary artery disease with prior history of stent -Obesity BMI 30.9 -GERD -Hyperlipidemia -Essential hypertension -Hypothyroid -Hepatic steatosis Plan: Home medications resumed. Seen by cardiology. Stress test was ordered. Troponins have been negative Past Medical History Past Medical History: Atrial Fibrillation, Coronary Artery Disease (CAD), Chest Pain / Angina, GERD/Reflux, Hyperlipidemia, Hypertension, Thyroid Disorder Additional Past Medical History / Comment(s): hx. antral ulcer, hypothyroid, vertigo rarely, nephrolithiasis-passed stones on own and surgically removed on ce, pancreatitis once following procedure to check liver d/t elevated liver function tests, "fatty liver" History of Any Multi-Drug Resistant Organisms: None Reported Past Surgical History: Heart Catheterization With Stent, Hernia Repair, Orthopedic Surgery, Tonsillectomy Additional Past Surgical History / Comment(s): L inguinal hernia repair, R tip of thumb amputation, cystoscopy with laser for kidney stone, EGDs, colonoscopy, [place] septoplasty. one cardiac stent. Past Anesthesia/Blood Transfusion Reactions: No Reported Reaction Additional Past Anesthesia/Blood Transfusion Reaction / Comment(s): NEVER RECEIVED BLOOD. Date of Last Stent Placement:: 12/19/2014 Past Psychological History: No Psychological Hx Reported Additional Psychological History / Comment(s): PT LIVES WITH AT HOME. HE IS RETIRED FROM [employer]. Smoking Status: Never smoker Past Alcohol Use History: None Reported Past Drug Use History: None Reported - Past Family History Father Family Medical History: Cancer Additional Family Medical History / Comment(s): FATHER AT AGE 75 OF [place] CA/METS TO BRAIN/KIDNEY Mother Family Medical History: AFIB Additional Family Medical History / Comment(s): MOTHER IS LIVING. Medications and Allergies Home Medications Medication Instructions Recorded Confirmed Type Levothyroxine Sodium [Synthroid] 112 mcg PO QAM 05/06/14 04/20/20 History atenoloL [Tenormin] 50 mg PO BID 05/06/14 04/20/20 History lisinopriL [Zestril] 20 mg PO BID@1200,1800 05/06/14 04/20/20 History Ascorbic Acid [Vitamin C] 1,000 mg PO DAILY 09/09/14 04/20/20 History Omeprazole [PriLOSEC] 20 mg PO HS 09/09/14 04/20/20 History Vitamin B Complex 1 cap PO DAILY 09/09/14 04/20/20 History Aspirin EC [Ecotrin Low Dose] 81 mg PO DAILY #30 tablet.dr 12/20/14 04/20/20 Rx Atorvastatin [Lipitor] 80 mg PO HS #30 tab 12/20/14 04/20/20 Rx Nitroglycerin Sl Tabs [Nitrostat] 0.4 mg SUBLINGUAL Q5M PRN #25 tab 12/20/14 Rx Flaxseed [Flaxseed Oil] 1,000 mg PO DAILY 09/17/15 04/20/20 History Apixaban [Eliquis] 5 mg PO BID #60 tab 10/24/18 04/20/20 Rx Meclizine [Antivert] 25 mg PO BID PRN 09/17/19 04/20/20 History Cholecalciferol [Vitamin D3] 400 unit PO DAILY 04/20/20 04/20/20 History Multivit-Min/FA/Lycopen/Lutein 1 tab PO DAILY 04/20/20 04/20/20 History [Centrum Silver Tablet] Allergies Allergy/AdvReac Type Severity Reaction Status Date / Time amiodarone [From Cordarone] Allergy Dyspnea Verified 04/20/20 13:43 Physical Exam Vitals: Vital Signs Temp Pulse Resp BP Pulse Ox 04/21/20 15:00 98.0 F 54 L 18 114/65 96 04/21/20 09:00 97.7 F 106 H 18 124/77 99 04/21/20 04:25 97.9 F 98 14 113/72 96 Intake and Output 04/21/20 04/21/20 04/22/20 14:59 22:59 06:59 Intake Total 540 Output Total 225 Balance 315 Intake: Oral 540 Output: Urine 225 Other: Voiding Method Toilet Toilet # Voids 1 Weight 92.08 kg Results CBC & Chem 7: 04/20/20 12:35 04/20/20 12:35 Thrombosis Risk Factor Assmnt - Choose All That Apply Any of the Below Risk Factors Present?: Yes Each Factor Represents 1 point: Obesity (BMI >25) Other Risk Factors: Yes Each Risk Factor Represents 2 Points: Age 61-74 years Other congenital or acquired thrombophilia - If yes, enter type in comment: No Thrombosis Risk Factor Assessment Total Risk Factor Score: 3 Thrombosis Risk Factor Assessment Level: Moderate Risk
--- NOTE | 2020-04-21 23:32 | P.DS ---
Providers Date of admission: 04/20/20 14:13 Expected date of discharge: 04/21/20 Attending physician: Ethan Kaur Consults: 04/20/20 14:14 Consult Physician Routine Consulting Provider: Vazquez Sawyer Consult Reason/Comments: CP Do you want consulting provider notified?: Yes Primary care physician: [facility] Course: Chief Complaint: Chest pressure History of presenting complaint: This is a very pleasant 64-year-old patient of Dr. Vincent. Also followed with senior geologist Dr. Sawyer. Chronic stable medical conditions include coronary artery disease, GERD, hypertension, hyperlipidemia, hypothyroid, peptic ulcer disease kidney stones. Patient for 3 days noted that he was getting easily short of breath and also noticed some pressure on exertion. No fever or chills. No cough. EKG did show patient to be in atrial flutter fibrillation. Rate controlled. Patient has been maintained on flecainide. 2019 didn't was cardiac cath showed patent stent to the LAD. He was scheduled for a stress test and an outpatient. Patient underwent nuclear stress test. Negative ischemia. [place] to have symptomatic atrial flutter fibrillation. Flecainide was discontinued. Blood pressures running on the lower side hence amlodipine discontinued. Consultation: Dr. HEENA Sawyer from cardiology Physical examination: VITAL SIGNS: 98, 54, 18, 114/6 T5, 96% room air GENERAL: BMI 30.9, sitting on bed, not in distress. EYES: Pupils equal. Conjunctiva normal. HEENT: External appearance of nose and ears normal, oral cavity grossly normal. NECK: JVD not raised; masses not palpable. HEART: Heart sounds irregular no edema. LUNGS: Respiratory rate normal; clear to auscultation. ABDOMEN: Soft, nontender, liver spleen not palpable, no masses palpable. PSYCH: Alert and oriented x3; mood and affect normal. INVESTIGATIONS, reviewed in the clinical context: White count 6.2 hemoglobin 15.8 potassium 4.1 creatinine 0.95 Troponin I 3 negative proBNP 1810 TSH 2.6 EKG tracing personally reviewed by me-atrial flutter fibrillation rate controlled Chest x-ray film personally reviewed by me-lungs clear Lexiscan nuclear stress test-negative ischemia 2-D echocardiogram-EF 50-55% Assessment: -Symptomatic Persistent atrial flutter fibrillation rate controlled -Coronary artery disease with prior history of stent -Obesity BMI 30.9 -GERD -Hyperlipidemia -Essential hypertension -Hypothyroid -Nonalcoholic Hepatic steatosis Disposition: Home Patient Condition at Discharge: Stable Plan - Discharge Summary Discharge Rx Participant: No New Discharge Prescriptions: Continue lisinopriL [Zestril] 20 mg PO BID@1200,1800 Levothyroxine Sodium [Synthroid] 112 mcg PO QAM atenoloL [Tenormin] 50 mg PO BID Omeprazole [PriLOSEC] 20 mg PO HS Vitamin B Complex 1 cap PO DAILY Ascorbic Acid [Vitamin C] 1,000 mg PO DAILY Atorvastatin [Lipitor] 80 mg PO HS #30 tab Nitroglycerin Sl Tabs [Nitrostat] 0.4 mg SUBLINGUAL Q5M PRN #25 tab PRN Reason: Chest Pain Aspirin EC [Ecotrin Low Dose] 81 mg PO DAILY #30 tablet. Flaxseed [Flaxseed Oil] 1,000 mg PO DAILY Apixaban [Eliquis] 5 mg PO BID #60 tab Meclizine [Antivert] 25 mg PO BID PRN PRN Reason: Vertigo Cholecalciferol [Vitamin D3] 400 unit PO DAILY Multivit-Min/FA/Lycopen/Lutein [Centrum Silver Tablet] 1 tab PO DAILY Discontinued amLODIPine BESYLATE [Norvasc] 5 mg PO DAILY Flecainide [Tambocor] 50 mg PO Q12HR #60 tablet Discharge Medication List Levothyroxine Sodium [Synthroid] 112 mcg PO QAM 05/06/14 [History] atenoloL [Tenormin] 50 mg PO BID 05/06/14 [History] lisinopriL [Zestril] 20 mg PO BID@1200,1800 05/06/14 [History] Ascorbic Acid [Vitamin C] 1,000 mg PO DAILY 09/09/14 [History] Omeprazole [PriLOSEC] 20 mg PO HS 09/09/14 [History] Vitamin B Complex 1 cap PO DAILY 09/09/14 [History] Aspirin EC [Ecotrin Low Dose] 81 mg PO DAILY #30 tablet. 12/20/14 [Rx] Atorvastatin [Lipitor] 80 mg PO HS #30 tab 12/20/14 [Rx] Nitroglycerin Sl Tabs [Nitrostat] 0.4 mg SUBLINGUAL Q5M PRN #25 tab 12/20/14 [Rx] Flaxseed [Flaxseed Oil] 1,000 mg PO DAILY 09/17/15 [History] Apixaban [Eliquis] 5 mg PO BID #60 tab 10/24/18 [Rx] Meclizine [Antivert] 25 mg PO BID PRN 09/17/19 [History] Cholecalciferol [Vitamin D3] 400 unit PO DAILY 04/20/20 [History] Multivit-Min/FA/Lycopen/Lutein [Centrum Silver Tablet] 1 tab PO DAILY 04/20/20 [History] Follow up Appointment(s)/Referral(s): Vazquez Sawyer MD [Family Provider] - 05/03/20 2:15 pm Juanpablo Vincent DO [Primary Care Provider] - 1-2 days Patient Instructions/Handouts: Nuclear Stress Test (DC) Activity/Diet/Wound Care/Special Instructions: Discharge if okay with cardiology
== END 2020-04-21 18:15 ==
LOC: EC 11:59 → 3NCARDOBS 14:13
PROVIDERS: ADMIT Hospitalist; ATTEND Hospitalist
DX: I48.0 Paroxysmal atrial fibrillation (principal); Z03.818 Encounter for observation for suspected exposure to other biological agents ruled out; E03.9 Hypothyroidism, unspecified; E66.9 Obesity, unspecified; E78.5 Hyperlipidemia, unspecified; I10 Essential (primary) hypertension; I25.10 Atherosclerotic heart disease of native coronary artery without angina pectoris; I48.92 Unspecified atrial flutter; K27.9 Peptic ulcer, site unspecified, unspecified as acute or chronic, without hemorrhage or perforation; K21.9 Gastro-esophageal reflux disease without esophagitis; K76.0 Fatty (change of) liver, not elsewhere classified; N20.0 Calculus of kidney; Z68.30 Body mass index [BMI] 30.0-30.9, adult; Z79.01 Long term (current) use of anticoagulants; Z79.82 Long term (current) use of aspirin; Z79.890 Hormone replacement therapy; Z79.899 Other long term (current) drug therapy; Z80.8 Family history of malignant neoplasm of other organs or systems; Z87.442 Personal history of urinary calculi; Z95.5 Presence of coronary angioplasty implant and graft
CPT/HCPCS: 93005 ×2; 99285; 36415; 93017; 83880; 80053; 84443; 83735; 84484; 85025; 85610; 85730; 71046; 78452; G0378 ×2; C8929; U0003; A9500; J2785; Q9950; 93306

== ENCOUNTER 2020-04-28 23:27 | Emergency (ER) | payer MEDICARE ==
[2020-04-29] MEDS ORDERED: ACETAMINOPHEN TAB 325 MG TAB PO STA (00:04)
[2020-04-29 00:18] LABS: Basophils % (A) 0 %; Eosinophils # (A) 0.1 k/uL (0-0.7); Eosinophils % (A) 1 %; HCT 39.3 % (39.0-53.0); Lymphocytes # (A) 1.1 k/uL (1.0-4.8); Lymphocytes % (A) 13 %; MCH 30.7 pg (25.0-35.0); MCHC 32.5 g/dL (31.0-37.0); MCV 94.6 fL (80.0-100.0); Monocytes # (A) 0.6 k/uL (0-1.0); Monocytes % (A) 8 %; Neutrophils # (A) 6.2 k/uL (1.3-7.7); Neutrophils % (A) 77 %; Platelet Count 142 k/uL (150-450); RBC 4.16 m/uL (4.30-5.90); RDW 12.8 % (11.5-15.5); WBC 8.1 k/uL (3.8-10.6)
--- NOTE | 2020-04-29 00:18 | ED ---
SOB HPI - General Chief Complaint: Chest Pain Stated Complaint: Chest Pain,SOB Time Seen by Provider: 04/28/20 23:43 Source: patient Mode of arrival: wheelchair Limitations: no limitations - History of Present Illness Initial Comments: This patient is a 64-year-old man presenting to be evaluated for shortness of breath than feeling chest tightness. Has been getting worse over the past 2 days. MD Complaint: shortness of breath Onset/Timin -: days(s) Severity: mild Quality: other (Tightness) Consistency: constant Improves With: nothing Worsens With: nothing Associated Symptoms: denies other symptoms Treatments Prior to Arrival: none - Related Data Home Medications Medication Instructions Recorded Confirmed Levothyroxine Sodium [Synthroid] 112 mcg PO QAM 05/06/14 04/20/20 atenoloL [Tenormin] 50 mg PO BID 05/06/14 04/20/20 lisinopriL [Zestril] 20 mg PO BID@1200,1800 05/06/14 04/20/20 Ascorbic Acid [Vitamin C] 1,000 mg PO DAILY 09/09/14 04/20/20 Omeprazole [PriLOSEC] 20 mg PO HS 09/09/14 04/20/20 Vitamin B Complex 1 cap PO DAILY 09/09/14 04/20/20 Flaxseed [Flaxseed Oil] 1,000 mg PO DAILY 09/17/15 04/20/20 Meclizine [Antivert] 25 mg PO BID PRN 09/17/19 04/20/20 Cholecalciferol [Vitamin D3] 400 unit PO DAILY 04/20/20 04/20/20 Multivit-Min/FA/Lycopen/Lutein 1 tab PO DAILY 04/20/20 04/20/20 [Centrum Silver Tablet] Previous Rx's Medication Instructions Recorded Aspirin EC [Ecotrin Low Dose] 81 mg PO DAILY #30 tablet. 12/20/14 Atorvastatin [Lipitor] 80 mg PO HS #30 tab 12/20/14 Nitroglycerin Sl Tabs [Nitrostat] 0.4 mg SUBLINGUAL Q5M PRN #25 tab 12/20/14 Apixaban [Eliquis] 5 mg PO BID #60 tab 10/24/18 Albuterol Inhaler [Ventolin Hfa 2 puff INHALATION Q4HR PRN #1 04/29/20 Inhaler] inhaler predniSONE 60 mg PO DAILY #30 tab 04/29/20 Allergies Allergy/AdvReac Type Severity Reaction Status Date / Time amiodarone [From Cordarone] Allergy Dyspnea Verified 04/28/20 23:34 Review of Systems ROS Statement: Those systems with pertinent positive or pertinent negative responses have been documented in the HPI. ROS Other: All systems not noted in ROS Statement are negative. Constitutional: Reports: fever, chills Respiratory: Reports: as per HPI, cough, dyspnea. Denies: wheezes, hemoptysis Cardiovascular: Reports: as per HPI, chest pain. Denies: palpitations, orthopnea, edema, syncope Gastrointestinal: Denies: abdominal pain, nausea, vomiting, diarrhea Genitourinary: Denies: dysuria, hematuria Musculoskeletal: Denies: back pain Skin: Denies: rash Neurological: Denies: headache, weakness, numbness Past Medical History Past Medical History: Atrial Fibrillation, Coronary Artery Disease (CAD), Chest Pain / Angina, GERD/Reflux, Hyperlipidemia, Hypertension, Thyroid Disorder Additional Past Medical History / Comment(s): hx. antral ulcer, hypothyroid, vertigo rarely, nephrolithiasis-passed stones on own and surgically removed once, pancreatitis once following procedure to check liver d/t elevated liver function tests, "fatty liver" History of Any Multi-Drug Resistant Organisms: None Reported Past Surgical History: Heart Catheterization With Stent, Hernia Repair, Orthopedic Surgery, Tonsillectomy Additional Past Surgical History / Comment(s): L inguinal hernia repair, R tip of thumb amputation, cystoscopy with laser for kidney stone, EGDs, colonoscopy, [place] septoplasty. one cardiac stent. Past Anesthesia/Blood Transfusion Reactions: No Reported Reaction Additional Past Anesthesia/Blood Transfusion Reaction / Comment(s): NEVER RECEIVED BLOOD. Date of Last Stent Placement:: 12/19/2014 Past Psychological History: No Psychological Hx Reported Smoking Status: Never smoker Past Alcohol Use History: None Reported Past Drug Use History: None Reported - Past Family History Father Family Medical History: Cancer Additional Family Medical History / Comment(s): FATHER AT AGE 75 OF [place] CA/METS TO BRAIN/KIDNEY Mother Family Medical History: AFIB Additional Family Medical History / Comment(s): MOTHER IS LIVING. General Exam Limitations: no limitations General appearance: alert, in no apparent distress Head exam: Present: atraumatic, normocephalic Eye exam: Present: normal appearance. Absent: scleral icterus, conjunctival injection ENT exam: Present: normal oropharynx Neck exam: Present: normal inspection Respiratory exam: Present: wheezes. Absent: respiratory distress, rales, rhonchi, stridor, chest wall tenderness, accessory muscle use Cardiovascular Exam: Present: regular rate, normal rhythm, normal heart sounds. Absent: systolic murmur, diastolic murmur, rubs, gallop GI/Abdominal exam: Present: soft. Absent: distended, tenderness, guarding, rebound, rigid, mass Extremities exam: Present: normal inspection, normal capillary refill. Absent: pedal edema, calf tenderness Back exam: Present: normal inspection. Absent: CVA tenderness (R), CVA tenderness (L) Neurological exam: Present: alert Course Vital Signs 04/28/20 04/29/20 04/29/20 23:29 00:25 00:31 Temperature 101.4 F H 100.3 F H 98.7 F Pulse Rate 82 69 70 Respiratory 18 18 18 Rate Blood Pressure 144/81 125/69 125/69 O2 Sat by Pulse 94 L 94 L 95 Oximetry 04/29/20 04/29/20 04/29/20 01:12 02:00 02:40 Temperature 98.7 F 98.2 F Pulse Rate 65 60 60 Respiratory 16 16 Rate Blood Pressure 102/61 105/57 O2 Sat by Pulse 94 L 96 Oximetry 04/29/20 03:43 Temperature 98.6 F Pulse Rate 60 Respiratory 18 Rate Blood Pressure 105/63 O2 Sat by Pulse 97 Oximetry Medical Decision Making - Medical Decision Making This patient is 64-year-old man complaining of coughing, chest tightness, mild shortness of breath. On the exam he has fever and wheeze. Patient sent for x- ray which does not reveal infiltrate, and will be treated for bronchitis. In addition Covid test is sent and pending. We discussed appropriate further care and follow-up. - Lab Data Result diagrams: 04/29/20 00:09 04/29/20 00:09 Lab Results 04/29/20 04/29/20 04/29/20 Range/Units 00:09 00:09 00:09 WBC 8.1 (3.8-10.6) k/uL RBC 4.16 L (4.30-5.90) m/uL Hgb 12.8 L D (13.0-17.5) gm/dL Hct 39.3 (39.0-53.0) % MCV 94.6 (80.0-100.0) fL MCH 30.7 (25.0-35.0) pg MCHC 32.5 (31.0-37.0) g/dL RDW 12.8 (11.5-15.5) % Plt Count 142 L (150-450) k/uL Neutrophils % 77 % Lymphocytes % 13 % Monocytes % 8 % Eosinophils % 1 % Basophils % 0 % Neutrophils # 6.2 (1.3-7.7) k/uL Lymphocytes # 1.1 (1.0-4.8) k/uL Monocytes # 0.6 (0-1.0) k/uL Eosinophils # 0.1 (0-0.7) k/uL Basophils # 0.0 (0-0.2) k/uL Sodium 137 (137-145) mmol/L Potassium 4.6 (3.5-5.1) mmol/L Chloride 108 H (98-107) mmol/L Carbon Dioxide 22 (22-30) mmol/L Anion Gap 7 mmol/L BUN 10 (9-20) mg/dL Creatinine 0.68 (0.66-1.25) mg/dL Est GFR (CKD-EPI)AfAm >90 (>60 ml/min/1.73 sqM) Est GFR (CKD-EPI)NonAf >90 (>60 ml/min/1.73 sqM) Glucose 147 H (74-99) mg/dL Plasma Lactic Acid [place] (0.7-2.0) mmol/L Calcium 8.6 (8.4-10.2) mg/dL Total Bilirubin 1.9 H (0.2-1.3) mg/dL AST 42 (17-59) U/L ALT 43 (4-49) U/L Alkaline Phosphatase 83 (38-126) U/L Troponin I (0.000-0.034) ng/mL NT-Pro-B Natriuret Pep 592 pg/mL Total Protein 6.2 L (6.3-8.2) g/dL Albumin 3.7 (3.5-5.0) g/dL Urine Color Urine Appearance (Clear) Urine pH (5.0-8.0) Ur Specific [place] (1.001-1.035) Urine Protein (Negative) Urine Glucose (UA) (Negative) Urine Ketones (Negative) Urine Blood (Negative) Urine Nitrite (Negative) Urine Bilirubin (Negative) Urine Urobilinogen (<2.0) mg/dL Ur Leukocyte Esterase (Negative) Urine WBC (0-5) /hpf Amorphous Sediment (None) /hpf Urine Mucus (None) /hpf 04/29/20 04/29/20 04/29/20 Range/Units 00:09 00:25 00:31 WBC (3.8-10.6) k/uL RBC (4.30-5.90) m/uL Hgb (13.0-17.5) gm/dL Hct (39.0-53.0) % MCV (80.0-100.0) fL MCH (25.0-35.0) pg MCHC (31.0-37.0) g/dL RDW (11.5-15.5) % Plt Count (150-450) k/uL Neutrophils % % Lymphocytes % % Monocytes % % Eosinophils % % Basophils % % Neutrophils # (1.3-7.7) k/uL Lymphocytes # (1.0-4.8) k/uL Monocytes # (0-1.0) k/uL Eosinophils # (0-0.7) k/uL Basophils # (0-0.2) k/uL Sodium (137-145) mmol/L Potassium (3.5-5.1) mmol/L Chloride (98-107) mmol/L Carbon Dioxide (22-30) mmol/L Anion Gap mmol/L BUN (9-20) mg/dL Creatinine (0.66-1.25) mg/dL Est GFR (CKD-EPI)AfAm (>60 ml/min/1.73 sqM) Est GFR (CKD-EPI)NonAf (>60 ml/min/1.73 sqM) Glucose (74-99) mg/dL Plasma Lactic Acid [place] 0.7 (0.7-2.0) mmol/L Calcium (8.4-10.2) mg/dL Total Bilirubin (0.2-1.3) mg/dL AST (17-59) U/L ALT (4-49) U/L Alkaline Phosphatase (38-126) U/L Troponin I <0.012 (0.000-0.034) ng/mL NT-Pro-B Natriuret Pep pg/mL Total Protein (6.3-8.2) g/dL Albumin (3.5-5.0) g/dL Urine Color Yellow Urine Appearance Cloudy (Clear) Urine pH 7.5 (5.0-8.0) Ur Specific [place] 1.022 (1.001-1.035) Urine Protein 1+ H (Negative) Urine Glucose (UA) Negative (Negative) Urine Ketones Negative (Negative) Urine Blood Negative (Negative) Urine Nitrite Negative (Negative) Urine Bilirubin Negative (Negative) Urine Urobilinogen 3.0 (<2.0) mg/dL Ur Leukocyte Esterase Negative (Negative) Urine WBC <1 (0-5) /hpf Amorphous Sediment Rare H (None) /hpf Urine Mucus Few H (None) /hpf - EKG Data -: EKG Interpreted by Ia EKG shows normal: sinus rhythm, intervals (Normal), QRS complexes (Old anterior infarct.), ST-T waves (Normal) Rate: normal (Rate 80 bpm) Disposition Clinical Impression: Bronchitis Disposition: HOME SELF-CARE Condition: Good Instructions (If sedation given, give patient instructions): Acute Bronchitis (ED) Prescriptions: predniSONE 60 mg PO DAILY #30 tab Albuterol Inhaler [Ventolin Hfa Inhaler] 2 puff INHALATION Q4HR PRN #1 inhaler PRN Reason: Wheezing Is patient prescribed a controlled substance at d/c from ED?: No Referrals: Juanpablo Vincent DO [Primary Care Provider] - 1-2 days
[2020-04-29 00:21] LABS: HGB 12.8 gm/dL (13.0-17.5)
[2020-04-29 00:27] LABS: ALT 43 U/L (4-49); AST 42 U/L (17-59); African American GFR (CKD) >90 (>60 ml/min/1.73 sqM); Albumin 3.7 g/dL (3.5-5.0); Alkaline Phosphatase 83 U/L (38-126); Anion Gap 7 mmol/L; Blood Urea Nitrogen 10 mg/dL (9-20); Calcium 8.6 mg/dL (8.4-10.2); Carbon Dioxide 22 mmol/L (22-30); Chloride 108 mmol/L (98-107); Glucose 147 mg/dL (74-99); Non-African American GFR(CKD) >90 (>60 ml/min/1.73 sqM); Potassium 4.6 mmol/L (3.5-5.1); Sodium 137 mmol/L (137-145); Total Bilirubin 1.9 mg/dL (0.2-1.3); Total Protein 6.2 g/dL (6.3-8.2)
--- NOTE | 2020-04-29 01:05 | XR ---
EXAMINATION TYPE: XR chest 2V DATE OF EXAM: 04/29/2020 COMPARISON: 04/20/2020 HISTORY: Fever TECHNIQUE: 2 view FINDINGS: There is some diffuse airspace infiltrate in the right lung. There is also slight blunting right costophrenic angle. Left lung is relatively clear. There is no heart failure. IMPRESSION: Diffuse pneumonia in the right lung in the right lower lobe and right middle lobe that ap pears new compared to old exam. New small right pleural effusion. No heart failure seen.
[2020-04-29] MEDS ORDERED: ALBUTEROL NEBULIZED 2.5 MG/3 ML INHALATION STA (01:36)
[2020-04-29 01:40] LABS: Amorphous Sediment,Urine Rare /hpf; Appearance,Urine Cloudy (Clear); Bilirubin,Urine Negative (Negative); Blood,Urine Negative (Negative); Color,Urine Yellow; Glucose,Urine (UA) Negative (Negative); Ketones,Urine Negative (Negative); Leukocyte Esterase,Urine Negative (Negative); Mucus,Urine Few /hpf; Nitrite,Urine Negative (Negative); PH, Urine 7.5 (5.0-8.0); Protein,Urine 1+ (Negative); Specific Gravity,Urine 1.022 (1.001-1.035); WBC,Urine <1 /hpf (0-5)
[2020-04-29 02:47] VITALS: PULSE 60
[2020-04-29 03:44] VITALS: BP 105/63; RESP 18; TEMP 98.6
== END 2020-04-29 03:30 | disposition home or self-care (01) ==
LOC: EC 23:27
DX: J40 Bronchitis, not specified as acute or chronic (principal); I48.91 Unspecified atrial fibrillation; I25.119 Atherosclerotic heart disease of native coronary artery with unspecified angina pectoris; K21.9 Gastro-esophageal reflux disease without esophagitis; E78.5 Hyperlipidemia, unspecified; I10 Essential (primary) hypertension; E03.9 Hypothyroidism, unspecified; Z79.890 Hormone replacement therapy; Z79.899 Other long term (current) drug therapy; Z95.5 Presence of coronary angioplasty implant and graft; Z88.8 Allergy status to other drugs, medicaments and biological substances; Z20.828 Contact with and (suspected) exposure to other viral communicable diseases
CPT/HCPCS: 36415; 94640; 93005; 83880; 80053; 83605; 84484; 85025; 81001; 87040; 71046; 99285; U0003

== ENCOUNTER → 2020-05-03 | Outpatient (CLI) | payer MEDICARE ==
--- NOTE | 2020-05-03 16:07 | XR ---
EXAMINATION TYPE: XR chest 2V DATE OF EXAM: 05/03/2020 COMPARISON: 04/29/2020 HISTORY: 64-year-old male R06.02, shortness of breath TECHNIQUE: Frontal and lateral views FINDINGS: The cardiomediastinal silhouette, aorta, and pulmonary vasculature are within normal limits. Subtle n odularity at the right upper and midlung. No consolidation or pleural effusion. IMPRESSION: No acute cardiopulmonary process. Right-sided airspace disease has resolved. Subtle density at the right upper to mid lung. If the patient has risk factors for development of brayden g cancer, contrast-enhanced CT chest can exclude an underlying pulmonary nodule. Otherwise, consider a 2-3 month follow-up radiograph.
== END | disposition home or self-care (01) ==
LOC: RADXRMAIN 15:12
PROVIDERS: ATTEND Internal Medicine Interventional Cardiology
DX: J98.4 Other disorders of lung (principal)
CPT/HCPCS: 71046

== ENCOUNTER → 2020-07-06 | Outpatient (CLI) | payer MEDICARE | END | disposition home or self-care (01) | LOC: LABWHC1 13:10 | PROVIDERS: ATTEND Family Medicine | DX: Z20.828 Contact with and (suspected) exposure to other viral communicable diseases (principal) | CPT/HCPCS: U0003; C9803 ==

== ENCOUNTER 2020-08-02 18:51 | Observation (INO) | payer MEDICARE ==
[2020-08-02] MEDS ORDERED: NITROGLYCERIN SL TABS 0.4 MG TAB SUBLINGUAL STA (19:12)
[2020-08-02] MEDS ORDERED: ASPIRIN 81 MG PO STA (19:12)
[2020-08-02 19:28] LABS: Basophils # (A) 0.1 k/uL (0-0.2); Basophils % (A) 2 %; Eosinophils # (A) 0.1 k/uL (0-0.7); Eosinophils % (A) 3 %; HCT 45.3 % (39.0-53.0); HGB 15.6 gm/dL (13.0-17.5); Lymphocytes # (A) 1.8 k/uL (1.0-4.8); Lymphocytes % (A) 31 %; MCH 32.1 pg (25.0-35.0); MCHC 34.4 g/dL (31.0-37.0); MCV 93.3 fL (80.0-100.0); Mean Platelet Volume 7.3; Monocytes # (A) 0.5 k/uL (0-1.0); Monocytes % (A) 9 %; Neutrophils # (A) 2.9 k/uL (1.3-7.7); Neutrophils % (A) 52 %; Platelet Count 164 k/uL (150-450); RBC 4.85 m/uL (4.30-5.90); RDW 13.1 % (11.5-15.5); WBC 5.6 k/uL (3.8-10.6)
--- NOTE | 2020-08-02 19:35 | ED ---
Chest Pain HPI - General Chief Complaint: Chest Pain Stated Complaint: chest pressure Time Seen by Provider: 08/02/20 18:58 Source: patient, family, RN notes reviewed Mode of arrival: ambulatory Limitations: no limitations - History of Present Illness Initial Comments: This is a 64-year-old male with a history of A. fib also history of heart disease with stents in the past who presents with complaints of episode of tachycardia last night with diaphoresis and lasted about 10 minutes he also has a retrosternal chest pressure that was it worse 2-3/10 in severity he still has pressure in spite of the other symptoms are recurring. He states the symptoms do however increase with exertion. He currently is 1-2/10 in severity further chest pressure does not radiate chills nausea vomiting and no sweats other than that mentioned above. MD Complaint: chest pain, other - Related Data Home Medications Medication Instructions Recorded Confirmed Levothyroxine Sodium [Synthroid] 112 mcg PO DAILY 05/06/14 08/02/20 atenoloL [Tenormin] 50 mg PO BID 05/06/14 08/02/20 lisinopriL [Zestril] 20 mg PO AC-BID@1200,1800 05/06/14 08/02/20 Ascorbic Acid [Vitamin C] 1,000 mg PO DAILY 09/09/14 08/02/20 Omeprazole [PriLOSEC] 20 mg PO HS 09/09/14 08/02/20 Vitamin B Complex 1 cap PO DAILY 09/09/14 08/02/20 Flaxseed [Flaxseed Oil] 1,000 mg PO DAILY 09/17/15 08/02/20 Cholecalciferol [Vitamin D3] 400 unit PO DAILY 04/20/20 08/02/20 Multivit-Min/FA/Lycopen/Lutein 1 tab PO DAILY 04/20/20 08/02/20 [Centrum Silver Tablet] Albuterol Inhaler [Ventolin Hfa 2 puff INHALATION RT-Q4H PRN 08/02/20 08/02/20 Inhaler] Beclomethasone Dipropionate [Qvar 2 puff INHALATION RT-BID 08/02/20 08/02/20 40 mcg Redihaler] Fluorouracil [Efudex] 1 applic TOPICAL BID 08/02/20 08/02/20 Montelukast [Singulair] 10 mg PO HS 08/02/20 08/02/20 Propafenone HCl [Propafenone HCl 325 mg PO AC-SUPPER 08/02/20 08/02/20 ER] Previous Rx's Medication Instructions Recorded Aspirin EC [Ecotrin Low Dose] 81 mg PO DAILY #30 tablet. 12/20/14 Atorvastatin [Lipitor] 80 mg PO HS #30 tab 12/20/14 Nitroglycerin Sl Tabs [Nitrostat] 0.4 mg SUBLINGUAL Q5M PRN #25 tab 12/20/14 Apixaban [Eliquis] 5 mg PO BID #60 tab 10/24/18 Allergies Allergy/AdvReac Type Severity Reaction Status Date / Time amiodarone [From Cordarone] Allergy Dyspnea Verified 08/02/20 20:23 Review of Systems ROS Statement: Those systems with pertinent positive or pertinent negative responses have been documented in the HPI. ROS Other: All systems not noted in ROS Statement are negative. EKG Findings - EKG Results: EKG: interpreted by JAMES, sinus rhythm (sinus bradycardia rate of 58 [place] interval 154 QRS duration 96 QT/QTC 432/[address]-T wave changes) Past Medical History Past Medical History: Atrial Fibrillation, Coronary Artery Disease (CAD), Chest Pain / Angina, GERD/Reflux, Hyperlipidemia, Hypertension, Thyroid Disorder Additional Past Medical History / Comment(s): hx. antral ulcer, hypothyroid, vertigo rarely, nephrolithiasis-passed stones on own and surgically removed once, pancreatitis once following procedure to check liver d/t elevated liver function tests, "fatty liver" History of Any Multi-Drug Resistant Organisms: None Reported Past Surgical History: Heart Catheterization With Stent, Hernia Repair, Orthopedic Surgery, Tonsillectomy Additional Past Surgical History / Comment(s): L inguinal hernia repair, R tip of thumb amputation, cystoscopy with laser for kidney stone, EGDs, colonoscopy, [place] septoplasty. one cardiac stent, Past Anesthesia/Blood Transfusion Reactions: No Reported Reaction Additional Past Anesthesia/Blood Transfusion Reaction / Comment(s): NEVER RECEIVED BLOOD. Date of Last Stent Placement:: 12/19/2014 Past Psychological History: No Psychological Hx Reported Smoking Status: Never smoker Past Alcohol Use History: None Reported Past Drug Use History: None Reported - Past Family History Father Family Medical History: Cancer Additional Family Medical History / Comment(s): FATHER AT AGE 75 OF [place] CA/METS TO BRAIN/KIDNEY Mother Family Medical History: AFIB Additional Family Medical History / Comment(s): MOTHER IS LIVING. General Exam - General Exam Comments Initial Comments: this is a well-developed well-nourished awake alert oriented 3 male Limitations: no limitations General appearance: alert, anxious Head exam: Present: atraumatic, normocephalic, normal inspection Eye exam: Present: normal appearance, PERRL, EOMI. Absent: scleral icterus, conjunctival injection, periorbital swelling ENT exam: Present: normal exam, mucous membranes moist Neck exam: Present: normal inspection, full ROM, other (no stridor JVD or bruits). Absent: tenderness, meningismus, lymphadenopathy Respiratory exam: Present: normal lung sounds bilaterally. Absent: respiratory distress, wheezes, rales, rhonchi, stridor Cardiovascular Exam: Present: normal rhythm, bradycardia, normal heart sounds. Absent: systolic murmur, diastolic murmur, rubs, gallop, clicks GI/Abdominal exam: Present: soft, normal bowel sounds. Absent: distended, tenderness, guarding, rebound, rigid Extremities exam: Present: normal inspection, full ROM, normal capillary refill. Absent: tenderness, pedal edema, joint swelling, calf tenderness Back exam: Present: normal inspection Neurological exam: Present: alert, oriented X3, CN II-XII intact Psychiatric exam: Present: normal affect, normal mood Skin exam: Present: warm, dry, intact, normal color. Absent: rash Course Vital Signs 08/02/20 18:52 Temperature 98.7 F Pulse Rate 56 L Respiratory 18 Rate Blood Pressure 181/70 O2 Sat by Pulse 96 Oximetry - Reevaluation(s) Reevaluation #1: 08/02/20 20:50 Reevaluation patient reveals improvement after nitroglycerin was given. Chest Pain MDM - MDM ing reviewed no acute findings. Patient is seemingly relief from the nitroglycerin. The lab findings are thus far negative. The patient will be admitted for further evaluation inpatient as well as consultation by Dr. 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's mailroom assistant.the patient currently is on [place] Critical Care Time Critical Care Time: Yes Total Critical Care Time: 31 Critical Care Time: this includes initial evaluation for history physical labs x-rays several reevaluation patient response to therapy discuss with the patient family regarding the findings review of old charting discussed with the main physician admission orders documentation of the above Disposition Clinical Impression: Unstable angina, Chest pain, History of atrial fibrillation Disposition: ADMITTED IP TO THIS HOSP Condition: Fair Referrals: Juanpablo Vincent DO [Primary Care Provider] - 1-2 days
[2020-08-02 19:39] LABS: ALT 33 U/L (4-49); AST 36 U/L (17-59); African American GFR (CKD) >90 (>60 ml/min/1.73 sqM); Albumin 4.5 g/dL (3.5-5.0); Alkaline Phosphatase 88 U/L (38-126); Anion Gap 8 mmol/L; Blood Urea Nitrogen 12 mg/dL (9-20); Calcium 9.5 mg/dL (8.4-10.2); Carbon Dioxide 26 mmol/L (22-30); Chloride 105 mmol/L (98-107); Creatine Kinase 154 U/L (55-170); Glucose 108 mg/dL (74-99); Magnesium 2.1 mg/dL (1.6-2.3); Non-African American GFR(CKD) >90 (>60 ml/min/1.73 sqM); Potassium 4.1 mmol/L (3.5-5.1); Sodium 139 mmol/L (137-145); Total Bilirubin 0.9 mg/dL (0.2-1.3); Total Protein 7.4 g/dL (6.3-8.2)
--- NOTE | 2020-08-02 19:39 | XR ---
EXAMINATION TYPE: XR chest 2V DATE OF EXAM: 08/02/2020 COMPARISON: 05/16/2020 HISTORY: Short of breath TECHNIQUE: FINDINGS: Heart and mediastinum are normal. Lungs are clear. Diaphragm is normal. Bony thorax appears normal. There are chest leads. IMPRESSION: Normal chest. No change.
[2020-08-02 19:52] LABS: D-Dimer 0.18 mg/L FEU (<0.60); INR 0.9 (<1.2); Prothrombin Time 9.7 sec (9.0-12.0)
[2020-08-02] MEDS ORDERED: NITROGLYCERIN SL TABS 0.4 MG TAB SUBLINGUAL PRN (20:54)
[2020-08-02] MEDS ORDERED: ALBUTEROL HFA INHALER INHALATION PRN (20:56)
[2020-08-02] MEDS ORDERED: ATORVASTATIN 80 MG TAB PO SCH (21:00)
[2020-08-02] MEDS ORDERED: MONTELUKAST 10 MG TAB PO SCH (21:00)
[2020-08-02] MEDS ORDERED: SODIUM CHLORIDE 0.9% 1,000 ML IV SCH (21:00)
[2020-08-02] MEDS ORDERED: PANTOPRAZOLE 40 MG TABLET PO SCH (21:30)
[2020-08-02] MEDS: APIXABAN 5 MG TAB PO SCH (22:33)
[2020-08-02] MEDS: NON FORMULARY DRUG (Fluorouracil [Efudex] 40 GM Cream..G.) TOPICAL SCH (22:34)
[2020-08-02] MEDS: atenoloL 50 MG TAB PO SCH (23:26)
[2020-08-03] MEDS ORDERED: hydrALAZINE HCL 25 MG TAB PO PRN (00:21)
[2020-08-03] MEDS ORDERED: ACETAMINOPHEN TAB 325 MG TAB PO PRN (00:24)
[2020-08-03] MEDS: NITROGLYCERIN OINT 1 INCH/GM PACKET TOPICAL SCH ×2 (00:46→06:33)
[2020-08-03 04:33] VITALS: RESP 16
[2020-08-03 06:19] LABS: Cholesterol 142 mg/dL (<200); HDL Cholesterol 36 mg/dL (40-60); LDL Cholesterol,Calculated 79 mg/dL (0-99); Triglycerides 137 mg/dL (<150)
[2020-08-03] MEDS ORDERED: LEVOTHYROXINE 112 MCG TAB PO SCH (06:30)
[2020-08-03] MEDS ORDERED: PROPAFENONE 150 MG TAB PO SCH (07:30)
[2020-08-03 07:39] VITALS: BP 170/84; PULSE 62; TEMP 98
[2020-08-03] MEDS: atenoloL 50 MG TAB PO SCH (07:48)
[2020-08-03] MEDS ORDERED: FLUTICASONE 44 MCG INHALER INHALATION SCH (08:00)
[2020-08-03] MEDS ORDERED: FOLIC ACID-VIT B COMPLEX-VIT C 1 CAP PO SCH (09:00)
[2020-08-03] MEDS ORDERED: FLAXSEED 1000 MG PO SCH (09:00)
[2020-08-03] MEDS ORDERED: CHOLECALCIFEROL 400 UNIT TAB PO SCH (09:00)
[2020-08-03] MEDS ORDERED: ASCORBIC ACID 500 MG TAB PO SCH (09:00)
[2020-08-03] MEDS ORDERED: ASPIRIN 81 MG PO SCH (09:00)
[2020-08-03] MEDS ORDERED: ASPIRIN 325 MG TAB PO SCH (09:00)
[2020-08-03] MEDS ORDERED: amLODIPine 5 MG TAB PO SCH (09:00)
[2020-08-03] MEDS ORDERED: VIT A,C & E-LUTEIN-MINERALS 1 EACH TAB PO SCH (09:00)
[2020-08-03] MEDS: NON FORMULARY DRUG (Fluorouracil [Efudex] 40 GM Cream..G.) TOPICAL SCH (09:36)
[2020-08-03] MEDS: APIXABAN 5 MG TAB PO SCH (09:36)
--- NOTE | 2020-08-03 11:00 | P.CRDCN ---
History of Present Illness History of present illness: HISTORY OF PRESENTING ILLNESS This is a pleasant 64-year-old male past medical history significant for paroxysmal atrial fibrillation on long-term anticoagulation, coronary artery disease status post PCI of mid LAD 2014, hypertension, dyslipidemia and asthma. He follows in the office with Dr. Sawyer. We have been asked to see in consultation for chest pain. He states he was sitting watching tv and started to feel acutely hot and sweaty with palpitations. He states it did not feel like his afib in the past. The pulse felt regular and e was 120-135 on his blood pressure machine. Blood pressure was elevated 201/109. Throughout this episode he felt a pressure sensation in the left precordial region. So far telemetry tracings have been unremarkable with no evidence of arrhythmia. His chest pain has subsided. DIAGNOSTICS EKG reveals sinus bradycardia heart rate of 58. Chest xray negative for an acute cardiopulmonary process. Laboratory reviewed, CBC unremarkable, d-dimer 0.18, sodium 139, potassium 4.1, creatinine 0.74, magnesium 2.1, cardiac enzymes negative 3, NT proBNP 238, LDL 79 and HDL 36. Current cardiac medications include Eliquis 5 mg twice a day, aspirin 81 mg daily, atorvastatin 80 mg at bedtime, atenolol 50 mg twice a day, lisinopril 20 mg twice a day and Rythmol 325 mg daily. Most recent cardiac catheterization 10/2018 revealed a patent stent in the LAD with no significant disease of the circumflex or RCA. Most recent echocardiogram obtained March 2020 revealed preserved LV systolic function with ejection fraction 50-55%. Most recent stress test performed March 2020 with a Lexiscan stress test that was negative for reversible cardiac ischemia. REVIEW OF SYSTEMS At the time of my exam: CONSTITUTIONAL: Denies fever or chills. CARDIOVASCULAR: Denies chest pain, shortness of breath, orthopnea, PND or palpitations. RESPIRATORY: Denies cough. GASTROINTESTINAL: Denies abdominal pain, diarrhea, constipation, nausea or vomiting. MUSCULOSKELETAL: Denies myalgias. NEUROLOGIC: Denies numbness, tingling or weakness. ENDOCRINE: Denies fatigue, weight change, polydipsia or polyurina. GENITOURINARY: Denies burning, hematuria or urgency with micturation. HEMATOLOGIC: Denies history of anemia or bleeding. PHYSICAL EXAMINATION Blood pressure 170/84 heart rate 62 afebrile and maintaining oxygen saturation on room air. CONSTITUTIONAL: No apparent distress. HEENT: Head is normocephalic. Pupils are equal, round. Sclerae anicteric. Mucous membranes of the mouth are moist. No JVD. No carotid bruit. CHEST EXAMINATION: Lungs are clear to auscultation. No chest wall tenderness is noted on palpation or with deep breathing. HEART EXAMINATION: Regular rate and rhythm. S1, S2 heard. No murmurs, gallops or rub. ABDOMEN: Soft, nontender. Positive bowel sounds. EXTREMITIES: 2+ peripheral pulses, no lower extremity edema and no calf tenderness. NEUROLOGIC EXAMINATION: Patient is awake, alert and oriented x3. ASSESSMENT Palpitations Hypertension, uncontrolled Paroxysmal atrial fibrillation on long-term anticoagulation currently maintaining sinus mechanism Coronary artery disease status post PCI of the LAD 2014 Dyslipidemia Asthma PLAN An acute coronary event has been ruled out. Pain atypical for angina and likely related to palpitations which could be atrial fibrillation as well as possible atrial flutter. We recommend outpatient event monitoring with consideration for possible ablation depending on what the event monitor shows. Initiate amlodipine 5 mg daily for optimal blood pressure control. Follow-up in the office with Dr. Sawyer after completion of event monitoring. Thank you kindly for this consultation. Nurse Practitioner note has been reviewed, I agree with a documented findings and plan of care. Patient was seen and examined. Past Medical History Past Medical History: Atrial Fibrillation, Coronary Artery Disease (CAD), Chest Pain / Angina, GERD/Reflux, Hyperlipidemia, Hypertension, Thyroid Disorder Additional Past Medical History / Comment(s): hx. antral ulcer, hypothyroid, vertigo rarely, nephrolithiasis-passed stones on own and surgically removed once, pancreatitis once following procedure to check liver d/t elevated liver function tests, "fatty liver" History of Any Multi-Drug Resistant Organisms: None Reported Past Surgical History: Heart Catheterization With Stent, Hernia Repair, Ort hopedic Surgery, Tonsillectomy Additional Past Surgical History / Comment(s): L inguinal hernia repair, R tip of thumb amputation, cystoscopy with laser for kidney stone, EGDs, colonoscopy, [place] septoplasty. one cardiac stent, Past Anesthesia/Blood Transfusion Reactions: No Reported Reaction Additional Past Anesthesia/Blood Transfusion Reaction / Comment(s): NEVER RECEIVED BLOOD. Date of Last Stent Placement:: 12/19/2014 Past Psychological History: No Psychological Hx Reported Additional Psychological History / Comment(s): PT LIVES WITH AT HOME. HE IS RETIRED FROM [employer]. Smoking Status: Never smoker Past Alcohol Use History: None Reported Past Drug Use History: None Reported - Past Family History Father Family Medical History: Cancer Additional Family Medical History / Comment(s): FATHER AT AGE 75 OF [place] CA/METS TO BRAIN/KIDNEY Mother Family Medical History: AFIB Additional Family Medical History / Comment(s): MOTHER IS LIVING. Medications and Allergies Home Medications Medication Instructions Recorded Confirmed Type Levothyroxine Sodium [Synthroid] 112 mcg PO DAILY 05/06/14 08/02/20 History atenoloL [Tenormin] 50 mg PO BID 05/06/14 08/02/20 History lisinopriL [Zestril] 20 mg PO AC-BID@1200,1800 05/06/14 08/02/20 History Ascorbic Acid [Vitamin C] 1,000 mg PO DAILY 09/09/14 08/02/20 History Omeprazole [PriLOSEC] 20 mg PO HS 09/09/14 08/02/20 History Vitamin B Complex 1 cap PO DAILY 09/09/14 08/02/20 History Aspirin EC [Ecotrin Low Dose] 81 mg PO DAILY #30 tablet. 12/20/14 08/02/20 Rx Atorvastatin [Lipitor] 80 mg PO HS #30 tab 12/20/14 08/02/20 Rx Nitroglycerin Sl Tabs [Nitrostat] 0.4 mg SUBLINGUAL Q5M PRN #25 tab 12/20/14 08/02/20 Rx Flaxseed [Flaxseed Oil] 1,000 mg PO DAILY 09/17/15 08/02/20 History Apixaban [Eliquis] 5 mg PO BID #60 tab 10/24/18 08/02/20 Rx Cholecalciferol [Vitamin D3] 400 unit PO DAILY 04/20/20 08/02/20 History Multivit-Min/FA/Lycopen/Lutein 1 tab PO DAILY 04/20/20 08/02/20 History [Centrum Silver Tablet] Albuterol Inhaler [Ventolin Hfa 2 puff INHALATION RT-Q4H PRN 08/02/20 08/02/20 History Inhaler] Beclomethasone Dipropionate [Qvar 2 puff INHALATION RT-BID 08/02/20 08/02/20 History 40 mcg Redihaler] Fluorouracil [Efudex] 1 applic TOPICAL BID 08/02/20 08/02/20 History Montelukast [Singulair] 10 mg PO HS 08/02/20 08/02/20 History Propafenone HCl [Propafenone HCl 325 mg PO AC-SUPPER 08/02/20 08/02/20 History ER] Allergies Allergy/AdvReac Type Severity Reaction Status Date / Time amiodarone [From Cordarone] Allergy Dyspnea Verified 08/02/20 20:23 Physical Exam Vitals: Vital Signs Temp Pulse Pulse Resp BP BP Pulse Ox 08/03/20 07:36 98.0 F 62 16 170/84 97 08/03/20 04:15 97.8 F 54 L 16 147/78 96 08/03/20 00:20 150/75 08/03/20 00:05 163/87 08/03/20 00:00 184/80 08/02/20 23:45 98.0 F 56 L 17 168/88 96 08/02/20 22:30 58 L 16 128/70 95 08/02/20 22:00 49 L 18 134/73 93 L 08/02/20 21:30 54 L 18 131/73 95 08/02/20 21:00 51 L 16 135/73 94 L 08/02/20 20:30 49 L 18 145/78 94 L 08/02/20 20:00 57 L 18 142/80 96 08/02/20 19:30 140/82 08/02/20 19:21 67 18 08/02/20 18:52 98.7 F 56 L 18 181/70 96 Intake and Output 08/02/20 08/03/20 08/03/20 22:59 06:59 14:59 Other: Voiding Method Toilet Toilet # Voids 1 Weight 95.254 kg 95.254 kg Results 08/02/20 19:18 08/02/20 19:18 Cardiac Enzymes 08/02/20 08/02/20 08/02/20 Range/Units 19:18 19:18 22:37 AST 36 (17-59) U/L Troponin I <0.012 <0.012 (0.000-0.034) ng/mL 08/03/20 Range/Units 00:44 AST (17-59) U/L Troponin I <0.012 (0.000-0.034) ng/mL Coagulation 08/02/20 Range/Units 19:18 PT 9.7 (9.0-12.0) sec APTT 25.0 (22.0-30.0) sec Lipids 08/03/20 Range/Units 00:44 Triglycerides 137 (<150) mg/dL Cholesterol 142 (<200) mg/dL HDL Cholesterol 36 L (40-60) mg/dL CBC 08/02/20 Range/Units 19:18 WBC 5.6 (3.8-10.6) k/uL RBC 4.85 (4.30-5.90) m/uL Hgb 15.6 (13.0-17.5) gm/dL Hct 45.3 (39.0-53.0) % Plt Count 164 (150-450) k/uL Comprehensive Metabolic Panel 08/02/20 Range/Units 19:18 Sodium 139 (137-145) mmol/L Potassium 4.1 (3.5-5.1) mmol/L Chloride 105 (98-107) mmol/L Carbon Dioxide 26 (22-30) mmol/L BUN 12 (9-20) mg/dL Creatinine 0.74 (0.66-1.25) mg/dL Glucose 108 H (74-99) mg/dL Calcium 9.5 (8.4-10.2) mg/dL AST 36 (17-59) U/L ALT 33 (4-49) U/L Alkaline Phosphatase 88 (38-126) U/L Total Protein 7.4 (6.3-8.2) g/dL Albumin 4.5 (3.5-5.0) g/dL Current Medications Generic Name Dose Route Start Last Admin Trade Name Freq PRN Reason Stop Dose Admin Acetaminophen 650 mg 08/03/20 00:24 08/03/20 00:42 Acetaminophen Tab 325 Mg Tab PO 650 mg Q6HR PRN Administration Fever and/ or Pain Albuterol Sulfate 2 puff 08/02/20 20:56 Albuterol Hfa Inhaler INHALATION RT-Q4H PRN Shortness Of Breath Apixaban 5 mg 08/02/20 21:30 08/02/20 22:33 Apixaban 5 Mg Tab PO 5 mg BID RENUKA Administration Ascorbic Acid 1,000 mg 08/03/20 09:00 Ascorbic Acid 500 Mg Tab PO DAILY [facility] Aspirin 81 mg 08/03/20 09:00 Aspirin 81 Mg PO DAILY [facility] Atenolol 50 mg 08/02/20 21:30 08/03/20 07:48 Atenolol 50 Mg Tab PO 50 mg BID [facility] Administration Atorvastatin Calcium 80 mg 08/02/20 21:00 08/02/20 22:32 Atorvastatin 80 Mg Tab PO 80 mg HS [facility] Administration Cholecalciferol 400 unit 08/03/20 09:00 Cholecalciferol 400 Unit Tab PO DAILY [facility] Fluticasone Propionate 1 puff 08/03/20 08:00 Fluticasone 44 Mcg Inhaler INHALATION RT-BID [facility] Sodium Chloride 1,000 mls @ 20 mls/hr 08/02/20 21:00 08/03/20 01:15 Saline 0.9% IV 20 mls/hr .Q24H RENUKA Administration Levothyroxine Sodium 112 mcg 08/03/20 06:30 08/03/20 06:33 Levothyroxine 112 Mcg Tab PO 112 mcg DAILY@0630 [facility] Administration Lisinopril 20 mg 08/03/20 12:00 08/03/20 07:48 Lisinopril 20 Mg Tab PO 20 mg AC-BID@1200,1800 [facility] Administration Montelukast Sodium 10 mg 08/02/20 21:00 08/02/20 22:32 Montelukast 10 Mg Tab PO 10 mg HS [facility] Administration Multivit/Ca Carb/B Cmplx/FA/Prenat 1 each 08/03/20 09:00 Folic Acid-Vit B Complex-Vit C 1 Cap PO DAILY [facility] Multivitamins/Minerals 1 each 08/03/20 09:00 Vit A,C & I-Ufquoh-Itgrdiyg 1 Each Tab PO DAILY [facility] Nitroglycerin 0.4 mg 08/02/20 20:54 Nitroglycerin Sl Tabs 0.4 Mg Tab SUBLINGUAL Q5M PRN Chest Pain Non-Formulary Medication 1 applic 08/02/20 21:00 08/02/20 22:34 Fluorouracil [Efudex] TOPICAL Not Given BID [facility] Pantoprazole Sodium 40 mg 08/02/20 21:30 08/02/20 22:32 Pantoprazole 40 Mg Tablet PO 40 mg HS [facility] Administration Propafenone HCl 150 mg 08/03/20 07:30 08/03/20 06:34 Propafenone 150 Mg Tab PO 150 mg AC-BID [facility] Administration Intake and Output 08/02/20 08/03/20 08/03/20 22:59 06:59 14:59 Other: Voiding Method Toilet Toilet # Voids 1 Weight 95.254 kg 95.254 kg 08/02/20 19:18 08/02/20 19:18
[2020-08-03] MEDS ORDERED: lisinopriL 20 MG TAB PO SCH (12:00)
[2020-08-03 12:34] LABS: T4, Free (Free Thyroxine) 1.2 ng/dL (0.78-2.19)
--- NOTE | 2020-08-04 20:52 | P.HPIM ---
History of Present Illness H&P Date: 08/03/20 Chief Complaint: Feeling unwell History of presenting complaint: This is a pleasant 64-year-old patient of Dr. Vincent. Chronic stable medical conditions include paroxysmal atrial fibrillation-on long-term anticoagulation, coronary artery disease, GERD, hypertension, hyperlipidemia, hypothyroid coronary artery disease with stent. Friday evening about 9 PM patient was si tting when he had an episode of feeling hot sweaty and increased heart rate. He checked his pulse it was felt to be regular about 120. Lasted for about 10 minutes. Blood pressure was 201 x 1 09. No chest pressure. He had a subsequent episode similar and then decided to come in. Patient had a cardiac catheterization in October 2018 that showed a patent stent to LAD. Review of systems: GEN.: As above EYES: None HEENT: None NECK: None RESPIRATORY: None CARDIOVASCULAR: None GASTROINTESTINAL: None GENITOURINARY: None MUSCULOSKELETAL: None LYMPHATICS: None HEMATOLOGICAL: None PSYCHIATRY: None NEUROLOGICAL: None. Past medical history to include: Atrial fibrillation, coronary artery disease with stent, GERD, hyperlipidemia, hypertension, hypothyroid, nephrolithiasis surgically removed, pancreatitis following her procedure, fatty liver Social history: Does not smoke or drink alcohol. . Retired from [employer]. Physical examination: VITAL SIGNS: 98.7, 56, 18, 140/82, 96% on room air GENERAL: BMI 31.9, sitting up, comfortable. EYES: Pupils equal. Conjunctiva normal. HEENT: External appearance of nose and ears normal, oral cavity grossly normal. NECK: JVD not raised; masses not palpable. HEART: First and second heart sounds are normal; no edema. LUNGS: Respiratory rate normal; clear to auscultation. ABDOMEN: Soft, nontender, liver spleen not palpable, no masses palpable. PSYCH: Alert and oriented x3; mood and affect normal. NEUROLOGICAL: Cranial nerves grossly intact; no facial asymmetry, power and sensation grossly intact. LYMPHATICS: No lymph nodes palpable in the axilla and neck INVESTIGATIONS, reviewed in the clinical context: White count 5.6 hemoglobin 15.6 platelets 164 potassium 4.1 creatinine 0.74 Troponin I less than 0.012 LDL 79. Free T4- 1.20 EKG tracing personally reviewed by me-sinus rhythm Chest x-ray film personally reviewed by al-lung orellana clear 2-D echocardiogram from March 2020 showed EF of 50-55%. Stress test on March 2020 stress test-negative for ischemia Assessment: -This is a patient who presents with a 10 minute episode of feeling hot sweaty increased heart rate defined is regular associated with high blood pressure and sitting down on its own. Patient may have had a bout of arrhythmia self-limitin g. -Coronary artery disease with prior history of stent -GERD -Hyperlipidemia -Essential hypertension -Hypothyroid -Nonalcoholic fatty liver disease -Paroxysmal atrial fibrillation currently in sinus rhythm on long-term anticoagulation Plan: Care was discussed with the patient. Put on telemetry. Cardiology was consulted. Home medications were continued. Blood pressure medications to be adjusted Past Medical History Past Medical History: Atrial Fibrillation, Coronary Artery Disease (CAD), Chest Pain / Angina, GERD/Reflux, Hyperlipidemia, Hypertension, Thyroid Disorder Additional Past Medical History / Comment(s): hx. antral ulcer, hypothyroid, vertigo rarely, nephrolithiasis-passed stones on own and surgically removed onc e, pancreatitis once following procedure to check liver d/t elevated liver function tests, "fatty liver" History of Any Multi-Drug Resistant Organisms: None Reported Past Surgical History: Heart Catheterization With Stent, Hernia Repair, Orthopedic Surgery, Tonsillectomy Additional Past Surgical History / Comment(s): L inguinal hernia repair, R tip of thumb amputation, cystoscopy with laser for kidney stone, EGDs, colonoscopy, [place] septoplasty. one cardiac stent, Past Anesthesia/Blood Transfusion Reactions: No Reported Reaction Additional Past Anesthesia/Blood Transfusion Reaction / Comment(s): NEVER RECEIVED BLOOD. Date of Last Stent Placement:: 12/19/2014 Past Psychological History: No Psychological Hx Reported Additional Psychological History / Comment(s): PT LIVES WITH AT HOME. HE IS RETIRED FROM [employer]. Smoking Status: Never smoker Past Alcohol Use History: None Reported Past Drug Use History: None Reported - Past Family History Father Family Medical History: Cancer Additional Family Medical History / Comment(s): FATHER AT AGE 75 OF [place] CA/METS TO BRAIN/KIDNEY Mother Family Medical History: AFIB Additional Family Medical History / Comment(s): MOTHER IS LIVING. Medications and Allergies Home Medications Medication Instructions Recorded Confirmed Type Levothyroxine Sodium [Synthroid] 112 mcg PO DAILY 05/06/14 08/02/20 History atenoloL [Tenormin] 50 mg PO BID 05/06/14 08/02/20 History lisinopriL [Zestril] 20 mg PO AC-BID@1200,1800 05/06/14 08/02/20 History Ascorbic Acid [Vitamin C] 1,000 mg PO DAILY 09/09/14 08/02/20 History Omeprazole [PriLOSEC] 20 mg PO HS 09/09/14 08/02/20 History Vitamin B Complex 1 cap PO DAILY 09/09/14 08/02/20 History Aspirin EC [Ecotrin Low Dose] 81 mg PO DAILY #30 tablet. 12/20/14 08/02/20 Rx Atorvastatin [Lipitor] 80 mg PO HS #30 tab 12/20/14 08/02/20 Rx Nitroglycerin Sl Tabs [Nitrostat] 0.4 mg SUBLINGUAL Q5M PRN #25 tab 12/20/14 08/02/20 Rx Flaxseed [Flaxseed Oil] 1,000 mg PO DAILY 09/17/15 08/02/20 History Apixaban [Eliquis] 5 mg PO BID #60 tab 10/24/18 08/02/20 Rx Cholecalciferol [Vitamin D3] 400 unit PO DAILY 04/20/20 08/02/20 History Multivit-Min/FA/Lycopen/Lutein 1 tab PO DAILY 04/20/20 08/02/20 History [Centrum Silver Tablet] Albuterol Inhaler [Ventolin Hfa 2 puff INHALATION RT-Q4H PRN 08/02/20 08/02/20 History Inhaler] Beclomethasone Dipropionate [Qvar 2 puff INHALATION RT-BID 08/02/20 08/02/20 History 40 mcg Redihaler] Fluorouracil [Efudex] 1 applic TOPICAL BID 08/02/20 08/02/20 History Montelukast [Singulair] 10 mg PO HS 08/02/20 08/02/20 History Propafenone HCl [Propafenone HCl 325 mg PO AC-SUPPER 08/02/20 08/02/20 History ER] amLODIPine [Norvasc] 5 mg PO DAILY #30 tab 08/03/20 Rx Allergies Allergy/AdvReac Type Severity Reaction Status Date / Time amiodarone [From Cordarone] Allergy Dyspnea Verified 08/02/20 20:23 Physical Exam Vitals: Vital Signs Temp Pulse Pulse Resp BP BP Pulse Ox 08/03/20 07:36 98.0 F 62 16 170/84 97 08/03/20 04:15 97.8 F 54 L 16 147/78 96 08/03/20 00:20 150/75 08/03/20 00:05 163/87 08/03/20 00:00 184/80 08/02/20 23:45 98.0 F 56 L 17 168/88 96 08/02/20 22:30 58 L 16 128/70 95 08/02/20 22:00 49 L 18 134/73 93 L 08/02/20 21:30 54 L 18 131/73 95 08/02/20 21:00 51 L 16 135/73 94 L 08/02/20 20:30 49 L 18 145/78 94 L 08/02/20 20:00 57 L 18 142/80 96 08/02/20 19:30 140/82 08/02/20 19:21 67 18 08/02/20 18:52 98.7 F 56 L 18 181/70 96 Intake and Output 08/02/20 08/03/20 08/03/20 22:59 06:59 14:59 Other: Voiding Method Toilet Toilet # Voids 1 Weight 95.254 kg 95.254 kg Results CBC & Chem 7: 08/02/20 19:18 08/02/20 19:18 Labs: Abnormal Lab Results - Last 24 Hours (Table) 08/02/20 08/03/20 Range/Units 19:18 00:44 Glucose 108 H (74-99) mg/dL HDL Cholesterol 36 L (40-60) mg/dL Thrombosis Risk Factor Assmnt - Choose All That Apply Each Factor Represents 1 point: Obesity (BMI >25) Each Risk Factor Represents 2 Points: Age 61-74 years Other congenital or acquired thrombophilia - If yes, enter type in comment: No Thrombosis Risk Factor Assessment Total Risk Factor Score: 3 Thrombosis Risk Factor Assessment Level: Moderate Risk
--- NOTE | 2020-08-04 20:55 | P.DS ---
Providers Date of admission: 08/02/20 20:57 Expected date of discharge: 08/04/20 Attending physician: Ethan Kaur Consults: 08/02/20 20:54 Consult Physician Urgent Consulting Provider: Vazquez Sawyer Consult Reason/Comments: chest pain, angina Do you want consulting provider notified?: Yes, Notify in am Primary care physician: Juanpablo [facility] Course: Chief Complaint: Feeling unwell History of presenting complaint: This is a pleasant 64-year-old patient of Dr. Vincent. Chronic stable medical conditions include paroxysmal atrial fibrillation-on long-term anticoagulation, coronary artery disease, GERD, hypertension, hyperlipidemia, hypothyroid coronary artery disease with stent. Friday evening about 9 PM patient was sitting when he had an episode of feeling hot sweaty and increased heart rate. He checked his pulse it was felt to be regular about 120. Lasted for about 10 minutes. Blood pressure was 201 x 1 09. No chest pressure. He had a subsequent episode similar and then decided to come in. Patient had a cardiac catheterization in October 2018 that showed a patent stent to LAD. Nuclear stress test on March of this year negative for ischemia. Patient remained asymptomatic in the hospital. Seen by Dr. Alex Barry from cardiology.. Norvas was added. Cleared for discharge Consultation: Alex Barry from cardiology Physical examination: VITAL SIGNS: 98, 62, 16, 147/78, 96% on room air GENERAL: Sitting up, comfortable EYES: Pupils equal. Conjunctiva normal. NECK: JVD not raised; masses not palpable. HEART: First and second heart sounds are normal; no edema. LUNGS: Respiratory rate normal; clear to auscultation. ABDOMEN: Soft, nontender, liver spleen not palpable, no masses palpable. PSYCH: Alert and oriented x3; mood and affect normal. INVESTIGATIONS, reviewed in the clinical context: White count 5.6 hemoglobin 15.6 platelets 164 potassium 4.1 creatinine 0.74 Troponin I less than 0.012 LDL 79. Free T4- 1.20 EKG tracing personally reviewed by me-sinus rhythm Chest x-ray film personally reviewed by me-lung orellana clear 2-D echocardiogram from March 2020 showed EF of 50-55%. Stress test on March 2020 stress test-negative for ischemia Assessment: -This is a patient who presents with a 10 minute episode of feeling hot sweaty increased heart rate defined is regular associated with high blood pressure and sitting down on its own. Possible self-limiting arrhythmia.. -Coronary artery disease with prior history of stent -GERD -Hyperlipidemia -Essential hypertension -Hypothyroid -Nonalcoholic fatty liver disease -Paroxysmal atrial fibrillation currently in sinus rhythm on long-term anticoagulation Disposition: Home Patient Condition at Discharge: Stable Plan - Discharge Summary Discharge Rx Participant: No New Discharge Prescriptions: New amLODIPine [Norvasc] 5 mg PO DAILY #30 tab Continue lisinopriL [Zestril] 20 mg PO AC-BID@1200,1800 Levothyroxine Sodium [Synthroid] 112 mcg PO DAILY atenoloL [Tenormin] 50 mg PO BID Omeprazole [PriLOSEC] 20 mg PO HS Vitamin B Complex 1 cap PO DAILY Ascorbic Acid [Vitamin C] 1,000 mg PO DAILY Atorvastatin [Lipitor] 80 mg PO HS #30 tab Nitroglycerin Sl Tabs [Nitrostat] 0.4 mg SUBLINGUAL Q5M PRN #25 tab PRN Reason: Chest Pain Aspirin EC [Ecotrin Low Dose] 81 mg PO DAILY #30 tablet. Flaxseed [Flaxseed Oil] 1,000 mg PO DAILY Apixaban [Eliquis] 5 mg PO BID #60 tab Cholecalciferol [Vitamin D3] 400 unit PO DAILY Multivit-Min/FA/Lycopen/Lutein [Centrum Silver Tablet] 1 tab PO DAILY Propafenone HCl [Propafenone HCl ER] 325 mg PO AC-SUPPER Montelukast [Singulair] 10 mg PO HS Beclomethasone Dipropionate [Qvar 40 mcg Redihaler] 2 puff INHALATION RT-BID Albuterol Inhaler [Ventolin Hfa Inhaler] 2 puff INHALATION RT-Q4H PRN PRN Reason: Shortness Of Breath Fluorouracil [Efudex] 1 applic TOPICAL BID Discharge Medication List Levothyroxine Sodium [Synthroid] 112 mcg PO DAILY 05/06/14 [History] atenoloL [Tenormin] 50 mg PO BID 05/06/14 [History] lisinopriL [Zestril] 20 mg PO AC-BID@1200,1800 05/06/14 [History] Ascorbic Acid [Vitamin C] 1,000 mg PO DAILY 09/09/14 [History] Omeprazole [PriLOSEC] 20 mg PO HS 09/09/14 [History] Vitamin B Complex 1 cap PO DAILY 09/09/14 [History] Aspirin EC [Ecotrin Low Dose] 81 mg PO DAILY #30 tablet. 12/20/14 [Rx] Atorvastatin [Lipitor] 80 mg PO HS #30 tab 12/20/14 [Rx] Nitroglycerin Sl Tabs [Nitrostat] 0.4 mg SUBLINGUAL Q5M PRN #25 tab 12/20/14 [Rx] Flaxseed [Flaxseed Oil] 1,000 mg PO DAILY 09/17/15 [History] Apixaban [Eliquis] 5 mg PO BID #60 tab 10/24/18 [Rx] Cholecalciferol [Vitamin D3] 400 unit PO DAILY 04/20/20 [History] Multivit-Min/FA/Lycopen/Lutein [Centrum Silver Tablet] 1 tab PO DAILY 04/20/20 [History] Albuterol Inhaler [Ventolin Hfa Inhaler] 2 puff INHALATION RT-Q4H PRN 08/02/20 [History] Beclomethasone Dipropionate [Qvar 40 mcg Redihaler] 2 puff INHALATION RT-BID 08/02/20 [History] Fluorouracil [Efudex] 1 applic TOPICAL BID 08/02/20 [History] Montelukast [Singulair] 10 mg PO HS 08/02/20 [History] Propafenone HCl [Propafenone HCl ER] 325 mg PO AC-SUPPER 08/02/20 [History] amLODIPine [Norvasc] 5 mg PO DAILY #30 tab 08/03/20 [Rx] Follow up Appointment(s)/Referral(s): Vazquez Sawyer MD [STAFF PHYSICIAN] - 6 Weeks (will call to set up follow up appt. need [facility] for event monitor) Juanpablo Vincent DO [Primary Care Provider] - 1-2 days (office will call to set up appt) Patient Instructions/Handouts: Chest Pain (DC)
== END 2020-08-03 12:38 ==
LOC: EC 18:51 → 3NCARDOBS 20:57
PROVIDERS: ADMIT Hospitalist; ATTEND Hospitalist
DX: I20.0 Unstable angina (principal); I48.0 Paroxysmal atrial fibrillation; I25.10 Atherosclerotic heart disease of native coronary artery without angina pectoris; I10 Essential (primary) hypertension; K21.9 Gastro-esophageal reflux disease without esophagitis; E78.5 Hyperlipidemia, unspecified; Z87.11 Personal history of peptic ulcer disease; E03.9 Hypothyroidism, unspecified; Z87.442 Personal history of urinary calculi; K76.0 Fatty (change of) liver, not elsewhere classified; Z95.5 Presence of coronary angioplasty implant and graft; Z98.890 Other specified postprocedural states; Z80.8 Family history of malignant neoplasm of other organs or systems; Z80.51 Family history of malignant neoplasm of kidney; Z82.49 Family history of ischemic heart disease and other diseases of the circulatory system; Z87.19 Personal history of other diseases of the digestive system; Z79.01 Long term (current) use of anticoagulants; Z79.82 Long term (current) use of aspirin; Z79.890 Hormone replacement therapy; Z79.899 Other long term (current) drug therapy; Z88.8 Allergy status to other drugs, medicaments and biological substances
CPT/HCPCS: 93005 ×2; 99291; 36415; 94640; 85379; 84439; 83880; 80061; 80053; 84443; 82550; 83735; 84484 ×2; 85025; 85610; 85730; 71046; G0378 ×2

== ENCOUNTER 2020-12-01 21:49 | Inpatient (IN) | payer MEDICARE ==
--- NOTE | 2020-12-01 22:08 | ED ---
General Adult HPI - General Stated complaint: Chest pain, SOB Time Seen by Provider: 12/01/20 21:57 Source: patient Mode of arrival: wheelchair Limitations: no limitations - History of Present Illness Initial comments: This patient is 65-year-old man with history of atrial fibrillation who presents to be evaluated for racing heart beat. The patient states she has been having i ncreasingly frequent episodes of this since September. He states that he nearly pain to the hospital last night when he had an episode that lasted approximately 90 minutes. Tonight symptoms recurred and have lasted over an hour so he presents for evaluation. Patient states he has been taking his medications for atrial fibrillation as prescribed but still has been having rapid heartbeat, associated with chest pressure and some mild dyspnea. -: hour(s) Location: chest Radiation: non-radiation Quality: other (Pressure) Consistency: constant Improves with: none Worsens with: none Associated Symptoms: shortness of breath Treatments Prior to Arrival: none - Related Data Home Medications Medication Instructions Recorded Confirmed Levothyroxine Sodium [Synthroid] 112 mcg PO DAILY 05/06/14 12/02/20 lisinopriL [Zestril] 20 mg PO AC-BID@1200,1800 05/06/14 12/02/20 Ascorbic Acid [Vitamin C] 1,000 mg PO DAILY 09/09/14 12/02/20 Omeprazole [PriLOSEC] 20 mg PO DAILY 09/09/14 12/02/20 Cholecalciferol [Vitamin D3 (10 400 unit PO DAILY 04/20/20 12/02/20 Mcg = 400 Iu)] Multivit-Min/FA/Lycopen/Lutein 1 tab PO DAILY 04/20/20 12/02/20 [Centrum Silver Tablet] Albuterol Inhaler [Ventolin Hfa 2 puff INHALATION RT-Q4H PRN 08/02/20 12/02/20 Inhaler] Montelukast [Singulair] 10 mg PO HS 08/02/20 12/02/20 Zinc 50 mg PO DAILY 12/02/20 12/02/20 Previous Rx's Medication Instructions Recorded Atorvastatin [Lipitor] 80 mg PO HS #30 tab 12/20/14 Nitroglycerin Sl Tabs [Nitrostat] 0.4 mg SUBLINGUAL Q5M PRN #25 tab 12/20/14 Apixaban [Eliquis] 5 mg PO BID #60 tab 10/24/18 amLODIPine [Norvasc] 5 mg PO DAILY #30 tab 08/03/20 Aspirin 81 mg PO DAILY chew 12/03/20 Metoprolol Tartrate [Lopressor] 25 mg PO TID #90 tab 12/03/20 Propafenone [Rythmol] 150 mg PO Q8HR #90 tab 12/03/20 Allergies Allergy/AdvReac Type Severity Reaction Status Date / Time amiodarone [From Cordarone] Allergy Dyspnea Verified 12/01/20 21:59 Review of Systems ROS Statement: Those systems with pertinent positive or pertinent negative responses have been documented in the HPI. ROS Other: All systems not noted in ROS Statement are negative. Constitutional: Denies: fever, chills Respiratory: Reports: dyspnea. Denies: cough, wheezes Cardiovascular: Reports: chest pain, palpitations. Denies: orthopnea, edema, syncope Gastrointestinal: Denies: abdominal pain, nausea, vomiting, diarrhea, melena, hematochezia Genitourinary: Denies: dysuria, hematuria Musculoskeletal: Denies: back pain Skin: Denies: rash Neurological: Denies: headache, weakness, numbness Past Medical History Past Medical History: Atrial Fibrillation, Coronary Artery Disease (CAD), Chest Pain / Angina, GERD/Reflux, Hyperlipidemia, Hypertension, Thyroid Disorder Additional Past Medical History / Comment(s): hx. antral ulcer, hypothyroid, vertigo rarely, nephrolithiasis-passed stones on own and surgically removed once, pancreatitis once following procedure to check liver d/t elevated liver function tests, "fatty liver" History of Any Multi-Drug Resistant Organisms: None Reported Past Surgical History: Heart Catheterization With Stent, Hernia Repair, Orthopedic Surgery, Tonsillectomy Additional Past Surgical History / Comment(s): L inguinal hernia repair, R tip of thumb amputation, cystoscopy with laser for kidney stone, EGDs, colonoscopy, Zavala septoplasty. one cardiac stent, Past Anesthesia/Blood Transfusion Reactions: No Reported Reaction Additional Past Anesthesia/Blood Transfusion Reaction / Comment(s): NEVER RECEIVED BLOOD. Date of Last Stent Placement:: 12/19/2014 Past Psychological History: No Psychological Hx Reported Smoking Status: Never smoker Past Alcohol Use History: None Reported Past Drug Use History: None Reported - Past Family History Father Family Medical History: Cancer Additional Family Medical History / Comment(s): FATHER AT AGE 75 OF [place] CA/METS TO BRAIN/KIDNEY Mother Family Medical History: AFIB Additional Family Medical History / Comment(s): MOTHER IS LIVING. General Exam Limitations: no limitations General appearance: alert, in no apparent distress Head exam: Present: atraumatic, normocephalic Eye exam: Present: normal appearance. Absent: scleral icterus, conjunctival injection ENT exam: Present: normal oropharynx Neck exam: Present: normal inspection Respiratory exam: Present: normal lung sounds bilaterally. Absent: respiratory distress, wheezes, rales, rhonchi, stridor Cardiovascular Exam: Present: tachycardia, irregular rhythm, normal heart sounds. Absent: systolic murmur, diastolic murmur, rubs, gallop GI/Abdominal exam: Present: soft. Absent: distended, tenderness, guarding, rebound, rigid Extremities exam: Present: normal inspection, normal capillary refill. Absent: pedal edema, calf tenderness Back exam: Present: normal inspection. Absent: CVA tenderness (R), CVA tenderness (L) Neurological exam: Present: alert Skin exam: Present: warm, dry, intact, normal color. Absent: rash Course Vital Signs 12/01/20 12/01/20 12/01/20 22:00 22:30 22:52 Temperature 97.9 F Pulse Rate 146 H 141 H 125 H Respiratory 20 18 Rate Blood Pressure 108/85 91/78 O2 Sat by Pulse 95 95 Oximetry 12/01/20 12/01/20 12/01/20 23:00 23:34 23:55 Temperature Pulse Rate 129 H 121 H 137 H Respiratory 18 18 18 Rate Blood Pressure 104/97 107/88 97/77 O2 Sat by Pulse 95 96 96 Oximetry 12/02/20 12/02/20 12/02/20 01:23 02:45 03:15 Temperature Pulse Rate 98 121 H 108 H Respiratory 16 Rate Blood Pressure 118/86 O2 Sat by Pulse 97 Oximetry EKG Findings - EKG Results: EKG: interpreted by ERMSridhar, normal axis, normal QRS EKG shows: atrial fibrillation (Rate approximately 129 bpm) - Blocks, Baldwin, Hypertrophy, ST Abn: Repolarization changes or abnormalities: nonspecific abnormality, ST segment, and/or T wave Medical Decision Making - Lab Data Result diagrams: 12/01/20 22:28 12/01/20 22:28 Lab Results 12/01/20 12/01/20 12/01/20 Range/Units 22:28 22:28 22:28 WBC 7.1 (3.8-10.6) k/uL RBC 4.98 (4.30-5.90) m/uL Hgb 16.4 (13.0-17.5) gm/dL Hct 46.1 (39.0-53.0) % MCV 92.7 (80.0-100.0) fL MCH 33.0 (25.0-35.0) pg MCHC 35.6 (31.0-37.0) g/dL RDW 12.4 (11.5-15.5) % Plt Count 171 (150-450) k/uL MPV 7.4 Neutrophils % 60 % Lymphocytes % 26 % Monocytes % 9 % Eosinophils % 3 % Basophils % 1 % Neutrophils # 4.3 (1.3-7.7) k/uL Lymphocytes # 1.9 (1.0-4.8) k/uL Monocytes # 0.6 (0-1.0) k/uL Eosinophils # 0.2 (0-0.7) k/uL Basophils # 0.0 (0-0.2) k/uL PT 10.2 (9.0-12.0) sec INR 0.9 (<1.2) APTT 23.8 (22.0-30.0) sec Sodium 140 (137-145) mmol/L Potassium 4.2 (3.5-5.1) mmol/L Chloride 105 (98-107) mmol/L Carbon Dioxide 25 (22-30) mmol/L Anion Gap 10 mmol/L BUN 11 (9-20) mg/dL Creatinine 0.69 (0.66-1.25) mg/dL Est GFR (CKD-EPI)AfAm >90 (>60 ml/min/1.73 sqM) Est GFR (CKD-EPI)NonAf >90 (>60 ml/min/1.73 sqM) Glucose 168 H (74-99) mg/dL Calcium 9.1 (8.4-10.2) mg/dL Magnesium 2.1 (1.6-2.3) mg/dL Total Bilirubin 0.8 (0.2-1.3) mg/dL AST 51 (17-59) U/L ALT 68 H (4-49) U/L Alkaline Phosphatase 105 (38-126) U/L Troponin I (0.000-0.034) ng/mL Total Protein 7.4 (6.3-8.2) g/dL Albumin 4.5 (3.5-5.0) g/dL TSH 5.970 H (0.465-4.680) mIU/L 12/01/20 Range/Units 22:28 WBC (3.8-10.6) k/uL RBC (4.30-5.90) m/uL Hgb (13.0-17.5) gm/dL Hct (39.0-53.0) % MCV (80.0-100.0) fL MCH (25.0-35.0) pg MCHC (31.0-37.0) g/dL RDW (11.5-15.5) % Plt Count (150-450) k/uL MPV Neutrophils % % Lymphocytes % % Monocytes % % Eosinophils % % Basophils % % Neutrophils # (1.3-7.7) k/uL Lymphocytes # (1.0-4.8) k/uL Monocytes # (0-1.0) k/uL Eosinophils # (0-0.7) k/uL Basophils # (0-0.2) k/uL PT (9.0-12.0) sec INR (<1.2) APTT (22.0-30.0) sec Sodium (137-145) mmol/L Potassium (3.5-5.1) mmol/L Chloride (98-107) mmol/L Carbon Dioxide (22-30) mmol/L Anion Gap mmol/L BUN (9-20) mg/dL Creatinine (0.66-1.25) mg/dL Est GFR (CKD-EPI)AfAm (>60 ml/min/1.73 sqM) Est GFR (CKD-EPI)NonAf (>60 ml/min/1.73 sqM) Glucose (74-99) mg/dL Calcium (8.4-10.2) mg/dL Magnesium (1.6-2.3) mg/dL Total Bilirubin (0.2-1.3) mg/dL AST (17-59) U/L ALT (4-49) U/L Alkaline Phosphatase (38-126) U/L Troponin I <0.012 (0.000-0.034) ng/mL Total Protein (6.3-8.2) g/dL Albumin (3.5-5.0) g/dL TSH (0.465-4.680) mIU/L Disposition Clinical Impression: Atrial fibrillation with RVR Disposition: ADMITTED IP TO THIS HOSP Condition: Fair
[2020-12-01] MEDS ORDERED: SODIUM CHLORIDE 0.9% 1,000 ML IV STA (22:19)
[2020-12-01] MEDS ORDERED: METOPROLOL TARTRATE 5 MG/5 ML VIAL IVP STA (22:19)
[2020-12-01 22:36] LABS: Basophils % (A) 1 %; Eosinophils # (A) 0.2 k/uL (0-0.7); Eosinophils % (A) 3 %; HCT 46.1 % (39.0-53.0); HGB 16.4 gm/dL (13.0-17.5); Lymphocytes # (A) 1.9 k/uL (1.0-4.8); Lymphocytes % (A) 26 %; MCHC 35.6 g/dL (31.0-37.0); MCV 92.7 fL (80.0-100.0); Mean Platelet Volume 7.4; Monocytes # (A) 0.6 k/uL (0-1.0); Monocytes % (A) 9 %; Neutrophils # (A) 4.3 k/uL (1.3-7.7); Neutrophils % (A) 60 %; Platelet Count 171 k/uL (150-450); RBC 4.98 m/uL (4.30-5.90); RDW 12.4 % (11.5-15.5); WBC 7.1 k/uL (3.8-10.6)
[2020-12-01 22:45] LABS: ALT 68 U/L (4-49); AST 51 U/L (17-59); African American GFR (CKD) >90 (>60 ml/min/1.73 sqM); Albumin 4.5 g/dL (3.5-5.0); Alkaline Phosphatase 105 U/L (38-126); Anion Gap 10 mmol/L; Blood Urea Nitrogen 11 mg/dL (9-20); Calcium 9.1 mg/dL (8.4-10.2); Carbon Dioxide 25 mmol/L (22-30); Chloride 105 mmol/L (98-107); Glucose 168 mg/dL (74-99); Magnesium 2.1 mg/dL (1.6-2.3); Non-African American GFR(CKD) >90 (>60 ml/min/1.73 sqM); Potassium 4.2 mmol/L (3.5-5.1); Sodium 140 mmol/L (137-145); Total Bilirubin 0.8 mg/dL (0.2-1.3); Total Protein 7.4 g/dL (6.3-8.2)
[2020-12-01 22:48] LABS: INR 0.9 (<1.2); Partial Thromboplastin Time 23.8 sec (22.0-30.0); Prothrombin Time 10.2 sec (9.0-12.0)
--- NOTE | 2020-12-01 22:49 | XR ---
EXAMINATION TYPE: XR chest 2V DATE OF EXAM: 12/01/2020 COMPARISON: 08/02/2020 HISTORY: Dysrhythmia TECHNIQUE: FINDINGS: Heart and mediastinum are normal. Lungs are clear. Diaphragm is normal. Bony thorax appears normal. IMPRESSION: Normal chest. No change.
[2020-12-01] MEDS: METOPROLOL TARTRATE 5 MG/5 ML VIAL IVP SCH (23:57)
[2020-12-02] MEDS: METOPROLOL TARTRATE 5 MG/5 ML VIAL IVP SCH ×17 (00:38→11:28)
[2020-12-02] MEDS ORDERED: NITROGLYCERIN SL TABS 0.4 MG TAB SUBLINGUAL PRN ×2 (02:50→02:52)
[2020-12-02] MEDS ORDERED: ALBUTEROL HFA INHALER INHALATION PRN (02:52)
[2020-12-02] MEDS: SODIUM CHLORIDE 0.9% 1,000 ML IV SCH (03:00)
[2020-12-02] MEDS: LEVOTHYROXINE 112 MCG TAB PO SCH (06:48)
[2020-12-02] MEDS ORDERED: METOPROLOL TARTRATE 25 MG TAB PO SCH (07:00)
[2020-12-02] MEDS: ASPIRIN 81 MG PO SCH (08:45)
[2020-12-02] MEDS: APIXABAN 5 MG TAB PO SCH ×2 (08:46→21:11)
[2020-12-02] MEDS: amLODIPine 5 MG TAB PO SCH (08:46)
[2020-12-02] MEDS ORDERED: atenoloL 50 MG TAB PO SCH (09:00)
[2020-12-02] MEDS ORDERED: PROPAFENONE 150 MG TAB PO SCH (09:00)
--- NOTE | 2020-12-02 11:40 | P.CRDCN ---
History of Present Illness Consult date: 12/02/20 Requesting physician: Ethan Kaur Reason for Consult (text): Atrial fibrillation with rapid ventricular response Chief complaint: Atrial fibrillation History of present illness: This is a pleasant 65-year-old gentleman who follows with Dr. HEENA Sawyer in the office. He has a history of hypertension, hyperlipidemia, CAD with prior stenting of the mid LAD in 2014, paroxysmal atrial fibrillation who is anticoagulated on Eliquis. He presents to the emergency department due to long episode of atrial fibrillation yesterday with some chest discomfort which he usually gets when he has atrial fibrillation. Patient does have a history of undergoing a Lexiscan Cardiolite study in March 2020 which showed no evidence of ischemia. He was seen in consultation during a hospitalization in July by Dr. Barry who recommended possible ablation. He was apparently previously on flecainide but this was discontinued and he has an ALLERGY to amiodarone. Patient has been noticing an increasing frequency of his atrial fibrillation since decreasing his Rythmol to 325 mg once a day which she was previously on 3 times a day but complained of some poor taste in his mouth. EKG on admission showed atrial fibrillation with rapid ventricular response. He has subsequently converted to sinus mechanism. Chest x-ray showed normal chest, no change. Laboratory values show normal CBC, potassium 4.2, BUN 11, creatinine 0.69, TSH minimally elevated at 5.970 and troponin negative 3. He is currently on metoprolol titrate 25 mg by mouth 3 times a day, aspirin both 325 and 81 mg are ordered, amlodipine 5 mg by mouth daily, Eliquis 5 mg by mouth twice a day, levothyroxine 112 g by mouth daily, lisinopril 20 mg by mouth twice a day and Rythmol 150 mg by mouth twice a day. He is currently maintaining sinus mechanism. Upon examination he is resting comfortably in bed. He's been feeling fairly well since admission. His chest feels better. He's had no palpitations and no chest discomfort. He does have some mild dyspnea on exertion which is chronic since March and he is following with pulmonary as an outpatient and being treated with Singulair and albuterol. Past Medical History Past Medical History: Atrial Fibrillation, Coronary Artery Disease (CAD), Chest Pain / Angina, GERD/Reflux, Hyperlipidemia, Hypertension, Thyroid Disorder Additional Past Medical History / Comment(s): hx. antral ulcer, hypothyroid, vertigo rarely, nephrolithiasis-passed stones on own and surgically removed once, pancreatitis once following procedure to check liver d/t elevated liver function tests, "fatty liver" History of Any Multi-Drug Resistant Organisms: None Reported Past Surgical History: Heart Catheterization With Stent, Hernia Repair, Orthopedic Surgery, Tonsillectomy Additional Past Surgical History / Comment(s): L inguinal hernia repair, R tip of thumb amputation, cystoscopy with laser for kidney stone, EGDs, colonoscopy, Yolis septoplasty. one cardiac stent, Past Anesthesia/Blood Transfusion Reactions: No Reported Reaction Additional Past Anesthesia/Blood Transfusion Reaction / Comment(s): NEVER RECEIVED BLOOD. Date of Last Stent Placement:: 12/19/2014 Past Psychological History: No Psychological Hx Reported Additional Psychological History / Comment(s): PT LIVES WITH AT HOME. HE IS RETIRED FROM [employer]. Smoking Status: Never smoker Past Alcohol Use History: None Reported Past Drug Use History: None Reported - Past Family History Father Family Medical History: Cancer Additional Family Medical History / Comment(s): FATHER AT AGE 75 OF [place] CA/METS TO BRAIN/KIDNEY Mother Family Medical History: AFIB Additional Family Medical History / Comment(s): MOTHER IS LIVING. Medications and Allergies Home Medications Medication Instructions Recorded Confirmed Type Levothyroxine Sodium [Synthroid] 112 mcg PO DAILY 05/06/14 12/02/20 History atenoloL [Tenormin] 50 mg PO BID 05/06/14 12/02/20 History lisinopriL [Zestril] 20 mg PO AC-BID@1200,1800 05/06/14 12/02/20 History Ascorbic Acid [Vitamin C] 1,000 mg PO DAILY 09/09/14 12/02/20 History Omeprazole [PriLOSEC] 20 mg PO DAILY 09/09/14 12/02/20 History Atorvastatin [Lipitor] 80 mg PO HS #30 tab 12/20/14 12/02/20 Rx Nitroglycerin Sl Tabs [Nitrostat] 0.4 mg SUBLINGUAL Q5M PRN #25 tab 12/20/14 12/02/20 Rx Apixaban [Eliquis] 5 mg PO BID #60 tab 10/24/18 12/02/20 Rx Cholecalciferol [Vitamin D3 (10 400 unit PO DAILY 04/20/20 12/02/20 History Mcg = 400 Iu)] Multivit-Min/FA/Lycopen/Lutein 1 tab PO DAILY 04/20/20 12/02/20 History [Centrum Silver Tablet] Albuterol Inhaler [Ventolin Hfa 2 puff INHALATION RT-Q4H PRN 08/02/20 12/02/20 History Inhaler] Montelukast [Singulair] 10 mg PO HS 08/02/20 12/02/20 History Propafenone HCl [Propafenone HCl 325 mg PO AC-SUPPER 08/02/20 12/02/20 History ER] amLODIPine [Norvasc] 5 mg PO DAILY #30 tab 08/03/20 12/02/20 Rx Zinc 50 mg PO DAILY 12/02/20 12/02/20 History Allergies Allergy/AdvReac Type Severity Reaction Status Date / Time amiodarone [From Cordarone] Allergy Dyspnea Verified 12/01/20 21:59 Physical Exam Vitals: Vital Signs Temp Pulse Pulse Resp BP BP Pulse Ox 12/02/20 08:41 98.6 F 68 16 124/76 98 12/02/20 07:47 97 12/02/20 03:45 98.3 F 96 18 129/84 97 12/02/20 03:15 108 H 16 118/86 97 12/02/20 02:45 121 H 12/02/20 01:23 98 12/01/20 23:55 137 H 18 97/77 96 12/01/20 23:34 121 H 18 107/88 96 12/01/20 23:00 129 H 18 104/97 95 12/01/20 22:52 125 H 12/01/20 22:30 141 H 18 91/78 95 12/01/20 22:00 97.9 F 146 H 20 108/85 95 Intake and Output 12/01/20 12/02/20 12/02/20 22:59 06:59 14:59 Other: Voiding Method Toilet Toilet Weight 101.695 kg 125.5 kg PHYSICAL EXAMINATION: This is a 65-year-old gentleman in no apparent distress at the time of my examination. VITAL SIGNS: Blood pressure 124/76, heart rate 68, respirations 16, temp 98.6F. Patient is 98 % on room air. HEENT: Head is atraumatic, normocephalic. Pupils are equal, round. Sclerae anicteric. Conjunctivae are clear. Mucous membranes of the mouth are moist. Neck is supple. There is no elevated jugular venous pressure. No carotid bruit is heard. CHEST EXAMINATION: Clear to auscultation bilaterally. No wheezes rales or rhonchi. Respirations even and nonlabored. HEART EXAMINATION: Heart regular, positive S1 and S2. No S3. No S4. No clicks, rubs or murmurs. ABDOMEN: Soft, nontender. Bowel sounds are heard. No organomegaly noted. EXTREMITIES: 2+ peripheral pulses with evidence of trace peripheral edema and no calf tenderness noted. NEUROLOGIC EXAMINATION: Patient is awake, alert and oriented x3. Results 12/01/20 22:28 12/01/20 22:28 Cardiac Enzymes 12/01/20 12/01/20 12/02/20 Range/Units 22:28 22:28 03:19 AST 51 (17-59) U/L Troponin I <0.012 <0.012 (0.000-0.034) ng/mL 12/02/20 Range/Units 07:27 AST (17-59) U/L Troponin I <0.012 (0.000-0.034) ng/mL Coagulation 12/01/20 Range/Units 22:28 PT 10.2 (9.0-12.0) sec APTT 23.8 (22.0-30.0) sec CBC 12/01/20 Range/Units 22:28 WBC 7.1 (3.8-10.6) k/uL RBC 4.98 (4.30-5.90) m/uL Hgb 16.4 (13.0-17.5) gm/dL Hct 46.1 (39.0-53.0) % Plt Count 171 (150-450) k/uL Comprehensive Metabolic Panel 12/01/20 Range/Units 22:28 Sodium 140 (137-145) mmol/L Potassium 4.2 (3.5-5.1) mmol/L Chloride 105 (98-107) mmol/L Carbon Dioxide 25 (22-30) mmol/L BUN 11 (9-20) mg/dL Creatinine 0.69 (0.66-1.25) mg/dL Glucose 168 H (74-99) mg/dL Calcium 9.1 (8.4-10.2) mg/dL AST 51 (17-59) U/L ALT 68 H (4-49) U/L Alkaline Phosphatase 105 (38-126) U/L Total Protein 7.4 (6.3-8.2) g/dL Albumin 4.5 (3.5-5.0) g/dL Current Medications Generic Name Dose Route Start Last Admin Trade Name Freq PRN Reason Stop Dose Admin Albuterol Sulfate 2 puff 12/02/20 02:52 Albuterol Hfa Inhaler INHALATION RT-Q4H PRN Shortness Of Breath Amlodipine Besylate 5 mg 12/02/20 09:00 12/02/20 08:46 Amlodipine 5 Mg Tab PO 5 mg DAILY RENUKA Administration Apixaban 5 mg 12/02/20 09:00 12/02/20 08:46 Apixaban 5 Mg Tab PO 5 mg BID RENUKA Administration Aspirin 81 mg 12/02/20 09:00 12/02/20 08:45 Aspirin 81 Mg PO 81 mg DAILY RENUKA Administration Atorvastatin Calcium 80 mg 12/02/20 21:00 Atorvastatin 80 Mg Tab PO HS RENUKA Sodium Chloride 1,000 mls @ 20 mls/hr 12/02/20 03:00 12/02/20 03:00 Saline 0.9% IV 20 mls/hr .Q24H RENUKA Administration Levothyroxine Sodium 112 mcg 12/02/20 06:00 12/02/20 06:48 Levothyroxine 112 Mcg Tab PO 112 mcg DAILY@0600 RENUKA Administration Lisinopril 20 mg 12/02/20 12:00 Lisinopril 20 Mg Tab PO AC-BID@1200,1800 [facility] Metoprolol Tartrate 5 mg 12/01/20 23:45 12/02/20 08:45 Metoprolol Tartrate 5 Mg/5 Ml Vial IVP Not Given Q5M [facility] Metoprolol Tartrate 25 mg 12/02/20 16:00 Metoprolol Tartrate 25 Mg Tab PO TID RENUKA Montelukast Sodium 10 mg 12/02/20 21:00 Montelukast 10 Mg Tab PO HS RENUKA Nitroglycerin 0.4 mg 12/02/20 02:50 Nitroglycerin Sl Tabs 0.4 Mg Tab SUBLINGUAL Q5M PRN Chest Pain Pantoprazole Sodium 40 mg 12/02/20 21:00 Pantoprazole 40 Mg Tablet PO HS RNEUKA Propafenone HCl 150 mg 12/02/20 16:00 Propafenone 150 Mg Tab PO Q8HR RENUKA Intake and Output 12/01/20 12/02/20 12/02/20 22:59 06:59 14:59 Other: Voiding Method Toilet Toilet Weight 101.695 kg 125.5 kg 12/01/20 22:28 12/01/20 22:28 Assessment and Plan Assessment: #1 paroxysmal atrial fibrillation with rapid ventricular response, currently maintaining sinus mechanism, anticoagulated #2 CAD with prior PCI involving the LAD and normal Lexiscan MPI less than one year ago #3 hypertension #4 hyperlipidemia #5 asthma Plan: From cardiology's perspective we will increase Rythmol to 150 mg by mouth 3 times a day. We will monitor the patient and repeat EKG in the morning. Increase patient's activity. Depending on patient's symptoms and clinical course the patient maintain sinus mechanism patient may be discharged home likely tomorrow and follow-up as an outpatient with Dr. HEENA Sawyer in the office. He may benefit from an EP consultation for possible A. fib ablation. We will continue to follow the patient and provide further recommendations accordingly. PLOW HOLDER note has been reviewed, I agree with a documented findings and plan of care. Patient was seen and examined.
[2020-12-02] MEDS: lisinopriL 20 MG TAB PO SCH ×2 (11:51→18:17)
[2020-12-02] MEDS: METOPROLOL TARTRATE 25 MG TAB PO SCH ×2 (17:02→21:11)
[2020-12-02] MEDS: PROPAFENONE 150 MG TAB PO SCH ×2 (17:02→23:25)
[2020-12-02] MEDS ORDERED: ATORVASTATIN 80 MG TAB PO SCH (21:00)
[2020-12-02] MEDS ORDERED: PANTOPRAZOLE 40 MG TABLET PO SCH (21:00)
[2020-12-02] MEDS ORDERED: MONTELUKAST 10 MG TAB PO SCH (21:00)
--- NOTE | 2020-12-02 22:53 | P.HPIM ---
History of Present Illness H&P Date: 12/02/20 Chief Complaint: Heart racing History of presenting complaint: This is a pleasant 65-year-old patient, follows a Dr. Vincent. Chronic stable medical conditions include chronic stable medical conditions include coronary artery disease with stent about 5 years ago, GERD, hypertension, hyperlipidemia, hypothyroid, gastric ulcer, kidney stones, fatty liver. For 2 nights in a row patient's had episodes of heart racing. This time it remained all night. Also felt some chest pressure. Found over tired and dizzy. Decided to come in. In March of last 2 patient did have a negative stress test. Patient started IV Cardizem drip in the ER for uncontrolled atrial fibrillation. Patient had atrial fibrillation the past. Has seen Dr. Barry. There was a suggestion about EP study/fibrillation Review of systems: GEN.: Tired EYES: None HEENT: None NECK: None RESPIRATORY: None CARDIOVASCULAR: As above GASTROINTESTINAL: None GENITOURINARY: None MUSCULOSKELETAL: None LYMPHATICS: None HEMATOLOGICAL: None PSYCHIATRY: None NEUROLOGICAL: None Past medical history to include: Atrial fibrillation, coronary artery with stent, GERD, hypertension, hyperlipidemia, hypothyroid, antral ulcer, kidney stones, pancreatitis, following procedure, fatty liver Social history: . Retired from [employer]. No history of smoking or alcohol. Physical examination: VITAL SIGNS: 97.9, 146, 20, 108/85, 95% on room air upon presentation GENERAL: BMI 42.1, sitting up, not in distress. EYES: Pupils equal. Conjunctiva normal. HEENT: External appearance of nose and ears normal, oral cavity grossly normal. NECK: JVD not raised; masses not palpable. HEART: First and second heart sounds are normal; no edema. LUNGS: Respiratory rate normal; clear to auscultation. ABDOMEN: Soft, nontender, liver spleen not palpable, no masses palpable. PSYCH: Alert and oriented x3; mood and affect normal. NEUROLOGICAL: Cranial nerves grossly intact; no facial asymmetry, power and sensation grossly intact. LYMPHATICS: No lymph nodes palpable in the axilla and neck, INVESTIGATIONS, reviewed in the clinical context: WBC 7.1 hemoglobin 16.4 platelets 171 potassium 4.2 creatinine 0.69 Troponin I 3 negative TSH 5.9 Coronavirus [PCR]-not detected EKG tracing personally reviewed by me-atrial fibrillation with a rate of 129 Chest x-ray film personally reviewed by me-lung orellana clear. Borderline cardiomegaly Assessment and plan: -Paroxysmal atrial fibrillation with a rapid ventricular rate, symptomatic. Patient started IV Cardizem. Has reverted back to sinus rhythm. Patient's Rythmol was increased to 3 times a day. Patient will follow with Dr. Alex Barry upon discharge. -Coronary artery disease with stent with a negative stress test with the last one year -GERD -Essential hypertension, continue with Zestril, Norvasc -Hyperlipidemia, continue with Lipitor -Hypothyroid, continue with Synthroid -Peptic ulcer disease history of-continue with Prilosec -Nonalcoholic fatty liver disease, follow-up with ECP -Morbid obesity BMI 42.1, weight loss measures and outpatient and follow-up with PCP Care was discussed with the patient and at the bedside. Patient will be followed with cardiology. Past Medical History Past Medical History: Atrial Fibrillation, Coronary Artery Disease (CAD), Chest Pain / Angina, GERD/Reflux, Hyperlipidemia, Hypertension, Thyroid Disorder Additional Past Medical History / Comment(s): hx. antral ulcer, hypothyroid, vertigo rarely, nephrolithiasis-passed stones on own and surgically removed once, pancreatitis once following procedure to check liver d/t elevated liver function tests, "fatty liver" History of Any Multi-Drug Resistant Organisms: None Reported Past Surgical History: Heart Catheterization With Stent, Hernia Repair, Orthopedic Surgery, Tonsillectomy Additional Past Surgical History / Comment(s): L inguinal hernia repair, R tip of thumb amputation, cystoscopy with laser for kidney stone, EGDs, colonoscopy, Yolis septoplasty. one cardiac stent, Past Anesthesia/Blood Transfusion Reactions: No Reported Reaction Additional Past Anesthesia/Blood Transfusion Reaction / Comment(s): NEVER RECEIVED BLOOD. Date of Last Stent Placement:: 12/19/2014 Past Psychological History: No Psychological Hx Reported Additional Psychological History / Comment(s): PT LIVES WITH AT HOME. HE IS RETIRED FROM [employer]. Smoking Status: Never smoker Past Alcohol Use History: None Reported Past Drug Use History: None Reported - Past Family History Father Family Medical History: Cancer Additional Family Medical History / Comment(s): FATHER AT AGE 75 OF [place] CA/METS TO BRAIN/KIDNEY Mother Family Medical History: AFIB Additional Family Medical History / Comment(s): MOTHER IS LIVING. Medications and Allergies Home Medications Medication Instructions Recorded Confirmed Type Levothyroxine Sodium [Synthroid] 112 mcg PO DAILY 05/06/14 12/02/20 History atenoloL [Tenormin] 50 mg PO BID 05/06/14 12/02/20 History lisinopriL [Zestril] 20 mg PO AC-BID@1200,1800 05/06/14 12/02/20 History Ascorbic Acid [Vitamin C] 1,000 mg PO DAILY 09/09/14 12/02/20 History Omeprazole [PriLOSEC] 20 mg PO DAILY 09/09/14 12/02/20 History Atorvastatin [Lipitor] 80 mg PO HS #30 tab 12/20/14 12/02/20 Rx Nitroglycerin Sl Tabs [Nitrostat] 0.4 mg SUBLINGUAL Q5M PRN #25 tab 12/20/14 12/02/20 Rx Apixaban [Eliquis] 5 mg PO BID #60 tab 10/24/18 12/02/20 Rx Cholecalciferol [Vitamin D3 (10 400 unit PO DAILY 04/20/20 12/02/20 History Mcg = 400 Iu)] Multivit-Min/FA/Lycopen/Lutein 1 tab PO DAILY 04/20/20 12/02/20 History [Centrum Silver Tablet] Albuterol Inhaler [Ventolin Hfa 2 puff INHALATION RT-Q4H PRN 08/02/20 12/02/20 History Inhaler] Montelukast [Singulair] 10 mg PO HS 08/02/20 12/02/20 History Propafenone HCl [Propafenone HCl 325 mg PO AC-SUPPER 08/02/20 12/02/20 History ER] amLODIPine [Norvasc] 5 mg PO DAILY #30 tab 08/03/20 12/02/20 Rx Zinc 50 mg PO DAILY 12/02/20 12/02/20 History Allergies Allergy/AdvReac Type Severity Reaction Status Date / Time amiodarone [From Cordarone] Allergy Dyspnea Verified 12/01/20 21:59 Physical Exam Vitals: Vital Signs Temp Pulse Pulse Resp BP BP Pulse Ox 12/02/20 08:41 98.6 F 68 16 124/76 98 12/02/20 07:47 97 12/02/20 03:45 98.3 F 96 18 129/84 97 12/02/20 03:15 108 H 16 118/86 97 12/02/20 02:45 121 H 12/02/20 01:23 98 12/01/20 23:55 137 H 18 97/77 96 12/01/20 23:34 121 H 18 107/88 96 12/01/20 23:00 129 H 18 104/97 95 12/01/20 22:52 125 H 12/01/20 22:30 141 H 18 91/78 95 12/01/20 22:00 97.9 F 146 H 20 108/85 95 Intake and Output 12/01/20 12/02/20 12/02/20 22:59 06:59 14:59 Other: Voiding Method Toilet Toilet Weight 101.695 kg 125.5 kg Results CBC & Chem 7: 12/01/20 22:28 12/01/20 22:28 Labs: Abnormal Lab Results - Last 24 Hours (Table) 12/01/20 Range/Units 22:28 Glucose 168 H (74-99) mg/dL ALT 68 H (4-49) U/L TSH 5.970 H (0.465-4.680) mIU/L Thrombosis Risk Factor Assmnt - Choose All That Apply Each Factor Represents 1 point: Obesity (BMI >25) Each Risk Factor Represents 2 Points: Age 61-74 years Thrombosis Risk Factor Assessment Total Risk Factor Score: 3 Thrombosis Risk Factor Assessment Level: Moderate Risk
[2020-12-03] MEDS: SODIUM CHLORIDE 0.9% 1,000 ML IV SCH (03:00)
[2020-12-03] MEDS: LEVOTHYROXINE 112 MCG TAB PO SCH (06:35)
[2020-12-03 07:15] LABS: Cholesterol 170 mg/dL (<200); HDL Cholesterol 38 mg/dL (40-60); LDL Cholesterol,Calculated 93 mg/dL (0-99); Triglycerides 196 mg/dL (<150)
[2020-12-03] MEDS: METOPROLOL TARTRATE 25 MG TAB PO SCH ×2 (08:07→15:30)
[2020-12-03] MEDS: amLODIPine 5 MG TAB PO SCH (08:07)
[2020-12-03] MEDS: ASPIRIN 81 MG PO SCH (08:07)
[2020-12-03] MEDS: APIXABAN 5 MG TAB PO SCH (08:07)
[2020-12-03] MEDS: PROPAFENONE 150 MG TAB PO SCH ×2 (08:08→15:30)
[2020-12-03] MEDS ORDERED: ASPIRIN 325 MG TAB PO SCH (09:00)
--- NOTE | 2020-12-03 09:52 | ECHOF ---
Referral Reason:PAF, chest pain MEASUREMENTS -------- HEIGHT: 172.7 cm WEIGHT: 125.2 kg BP: 136/69 RVIDd: 3.0 cm (< 3.3) IVSd: 1.5 cm (0.6 - 1.1) LVIDd: 4.1 cm (3.9 - 5.3) LVPWd: 1.5 cm (0.6 - 1.1) IVSs: 2.1 cm LVIDs: 2.9 cm LVPWs: 1.7 cm LA Diam: 3.8 cm (2.7 - 3.8) LAESV Index (A-L): 22.57 ml/m Ao Diam: 2.9 cm (2.0 - 3.7) AV Cusp: 1.8 cm (1.5 - 2.6) MV EXCURSION: 8.134 mm (> 18.000) MV EF SLOPE: 37 mm/s (70 - 150) EPSS: 1.0 cm MV E Darwin: 1.37 m/s MV DecT: 232 ms MV A Darwin: 0.63 m/s MV E/A Ratio: 2.15 AV maxP.55 mmHg AV meanP.15 mmHg RAP: 5.00 mmHg RVSP: 31.23 mmHg FINDINGS -------- Sinus rhythm. This was a technically adequate study. The left ventricular size is normal. There is moderate concentric left ventricular hypertrophy. O verall left ventricular systolic function is normal with, an EF between 60 - 65 %. The right ventricle is normal in size. Normal LA size by volume 22+/-6 ml/m2. The right atrium is normal in size. Interatrial and interventricular septum intact. There is mild aortic valve sclerosis. Peak/mean gradient across the Aortic Valve is 17.55mmHg / 10. 15mmHg. There is trace mitral regurgitation. Mild tricuspid regurgitation present. Right ventricular systolic pressure is normal at < 35 mmHg. Trace/mild (physiologic) pulmonic regurgitation. The aortic root size is normal. Normal inferior vena cava with normal inspiratory collapse consistent with estimated right atrial pre ssure of 5 mmHg. There is no pericardial effusion. CONCLUSIONS -------- 1. The left ventricular size is normal. 2. There is moderate concentric left ventricular hypertrophy. 3. Overall left ventricular systolic function is normal with, an EF between 60 - 65 %. 4. There is mild aortic valve sclerosis. 5. Peak/mean gradient across the Aortic Valve is 17.55mmHg / 10.15mmHg. 6. There is trace mitral regurgitation. 7. Mild tricuspid regurgitation present. 8. Trace/mild (physiologic) pulmonic regurgitation. 9. There is no pericardial effusion. PATIENT DAY COORDINATOR: Sandy Braxton RDCS
[2020-12-03 11:36] VITALS: BP 122/72; PULSE 70; RESP 16; TEMP 98.4
[2020-12-03] MEDS: lisinopriL 20 MG TAB PO SCH (11:36)
--- NOTE | 2020-12-03 13:01 | P.PN ---
Subjective Progress Note Date: 12/03/20 History of present illness: This is a pleasant 65-year-old gentleman who follows with Dr. HEENA Sawyer in the office. He has a history of hypertension, hyperlipidemia, CAD with prior stenting of the mid LAD in 2014, paroxysmal atrial fibrillation who is anticoagulated on Eliquis. He presents to the emergency department due to long episode of atrial fibrillation yesterday with some chest discomfort which he usually gets when he has atrial fibrillation. Patient does have a history of undergoing a Lexiscan Cardiolite study in March 2020 which showed no evidence of ischemia. He was seen in consultation during a hospitalization in July by Dr. Barry who recommended possible ablation. He was apparently previously on flecainide but this was discontinued and he has an ALLERGY to amiodarone. Patient has been noticing an increasing frequency of his atrial fibrillation since decreasing his Rythmol to 325 mg once a day which she was previously on 3 times a day but complained of some poor taste in his mouth. EKG on admission showed atrial fibrillation with rapid ventricular response. He has subsequently converted to sinus mechanism. Chest x-ray showed normal chest, no change. Laboratory values show normal CBC, potassium 4.2, BUN 11, creatinine 0.69, TSH minimally elevated at 5.970 and troponin negative 3. He is currently on metoprolol titrate 25 mg by mouth 3 times a day, aspirin both 325 and 81 mg are ordered, amlodipine 5 mg by mouth daily, Eliquis 5 mg by mouth twice a day, levothyroxine 112 g by mouth daily, lisinopril 20 mg by mouth twice a day and Rythmol 150 mg by mouth twice a day. He is currently maintaining sinus mechanism. Upon examination he is resting comfortably in bed. He's been feeling fairly well since admission. His chest feels better. He's had no palpi tations and no chest discomfort. He does have some mild dyspnea on exertion which is chronic since March and he is following with pulmonary as an outpatient and being treated with Singulair and albuterol. 12/03: conveyor monitor is a sinus rhythm. He has been afebrile, heart rate 69, blood pressure 131/64, pulse ox 100% on room air. Triglycerides 196, cholesterol 170, LDL 93, HDL 38. Physical examination: Gen: This is a 65-year-old male. He is resting in bed appears to be comfortable. No acute distress noted. HEENT: Head is atraumatic, normocephalic. Pupils equal, round. Sclerae is anicteric. NECK: Supple. No JVD. No lymphadenopathy. No thyromegaly. LUNGS: Clear to auscultation. No wheezes or rhonchi. No intercostal retractions. HEART: Regular rate and rhythm. No murmur. ABDOMEN: Soft. Bowel sounds are present. No masses. No tenderness. EXTREMITIES: Trace pedal edema. No calf tenderness. NEUROLOGICAL: Patient is awake, alert and oriented x3. Cranial nerves 2 through 12 are grossly intact. Assessment: #1 paroxysmal atrial fibrillation with rapid ventricular response, currently maintaining sinus mechanism, anticoagulated #2 CAD with prior PCI involving the LAD and normal Lexiscan MPI less than one year ago #3 hypertension #4 hyperlipidemia #5 asthma Plan: Rythmol has been increased 150 mg 3 times daily Follow-up with Dr. HEENA Sawyer in the office Patient may benefit from EP consultation for possible A. fib ablation Patient is cleared for discharge from cardiology. Nurse practitioner note has been reviewed, I agree with documented findings and plan of care. Patient was seen and examined. Objective - Vital Signs Vital signs: Vital Signs Temp 98.3 F 12/03/20 08:00 Pulse 69 12/03/20 08:00 Resp 15 12/03/20 08:00 BP 131/64 12/03/20 08:00 Pulse Ox 100 12/03/20 08:00 Intake & Output 12/02/20 12/03/20 12/03/20 17:59 06:59 18:59 Intake Total Balance Weight Intake: Oral Other: Voiding Method Toilet # Voids - Labs CBC & Chem 7: 12/01/20 22:28 12/01/20 22:28 Labs: Abnormal Lab Results - Last 24 Hours (Table) 12/03/20 Range/Units 06:40 Triglycerides 196 H (<150) mg/dL HDL Cholesterol 38 L (40-60) mg/dL
--- NOTE | 2020-12-03 22:55 | P.DS ---
Providers Date of admission: 12/02/20 02:52 Expected date of discharge: 12/03/20 Attending physician: Ethan Kaur Consults: 12/02/20 02:50 Consult Physician Routine Consulting Provider: Davide Renee Consult Reason/Comments: Atrial fibrillation with rapid ventricular rate Do you want consulting provider notified?: Yes Primary care physician: [facility] Course: Chief Complaint: Heart racing History of presenting complaint: This is a pleasant 65-year-old patient, follows a Dr. Vincent. Chronic stable medical conditions include chronic stable medical conditions include coronary artery disease with stent about 5 years ago, GERD, hypertension, hyperlipidemia, hypothyroid, gastric ulcer, kidney stones, fatty liver. For 2 nights in a row patient's had episodes of heart racing. This time it remained all night. Also felt some chest pressure. Found over tired and dizzy. Decided to come in. In March of last 2 patient did have a negative stress test. Patient started IV Cardizem drip in the ER for uncontrolled atrial fibrillation. Patient had atrial fibrillation the past. Has seen Dr. Barry. There was a suggestion about EP study/fibrillation Today-back into sinus rhythm. Feeling well. Discussed with the patient and at the bedside. Patient will follow Dr. Barry as an outpatient. Consultation: dr Diaz from cardiology Past medical history to include: Atrial fibrillation, coronary artery with stent, GERD, hypertension, hyperlipidemia, hypothyroid, antral ulcer, kidney stones, pancreatitis, follo wing procedure, fatty liver Social history: . Retired from [employer]. No history of smoking or alcohol. Physical examination: VITAL SIGNS: 98.4, 70, 16, 122/72, 96% on room air GENERAL: BMI 42.1, sitting up, not in distress. EYES: Pupils equal. Conjunctiva normal. HEENT: External appearance of nose and ears normal, oral cavity grossly normal. NECK: JVD not raised; masses not palpable. HEART: First seconds are normal; no edema. LUNGS: Respiratory rate normal; clear to auscultation. ABDOMEN: Soft, nontender, liver spleen not palpable, no masses palpable. PSYCH: Alert and oriented x3; mood and affect normal. INVESTIGATIONS, reviewed in the clinical context: LDL 93 WBC 7.1 hemoglobin 16.4 platelets 171 potassium 4.2 creatinine 0.69 Troponin I 3 negative TSH 5.9 Coronavirus [PCR]-not detected EKG tracing personally reviewed by me-atrial fibrillation with a rate of 129 Chest x-ray film personally reviewed by me-lung orellana clear. Borderline cardiomegaly Assessment and plan: -Paroxysmal atrial fibrillation with a rapid ventricular rate, symptomatic. Patient started IV Cardizem. Has reverted back to sinus rhythm. Rythmol was increased to 3 times a day. follow with Dr. Alex Barry upon discharge. -Coronary artery disease with stent with a negative stress test with the last one year -GERD -Essential hypertension, continue with Zestril, Norvasc -Hyperlipidemia, continue with Lipitor -Hypothyroid, continue with Synthroid -Peptic ulcer disease history of-continue with Prilosec -Nonalcoholic fatty liver disease, follow-up with ECP -Morbid obesity BMI 42.1, weight loss measures and outpatient and follow-up with PCP Disposition: Home Plan - Discharge Summary Discharge Rx Participant: No New Discharge Prescriptions: New Propafenone [Rythmol] 150 mg PO Q8HR #90 tab Metoprolol Tartrate [Lopressor] 25 mg PO TID #90 tab Aspirin 81 mg PO DAILY chew Continue lisinopriL [Zestril] 20 mg PO AC-BID@1200,1800 Levothyroxine Sodium [Synthroid] 112 mcg PO DAILY Omeprazole [PriLOSEC] 20 mg PO DAILY Ascorbic Acid [Vitamin C] 1,000 mg PO DAILY Atorvastatin [Lipitor] 80 mg PO HS #30 tab Nitroglycerin Sl Tabs [Nitrostat] 0.4 mg SUBLINGUAL Q5M PRN #25 tab PRN Reason: Chest Pain Apixaban [Eliquis] 5 mg PO BID #60 tab Cholecalciferol [Vitamin D3 (10 Mcg = 400 Iu)] 400 unit PO DAILY Multivit-Min/FA/Lycopen/Lutein [Centrum Silver Tablet] 1 tab PO DAILY Montelukast [Singulair] 10 mg PO HS Albuterol Inhaler [Ventolin Hfa Inhaler] 2 puff INHALATION RT-Q4H PRN PRN Reason: Shortness Of Breath amLODIPine [Norvasc] 5 mg PO DAILY #30 tab Zinc 50 mg PO DAILY Discontinued atenoloL [Tenormin] 50 mg PO BID Propafenone HCl [Propafenone HCl ER] 325 mg PO AC-SUPPER Discharge Medication List Levothyroxine Sodium [Synthroid] 112 mcg PO DAILY 05/06/14 [History] lisinopriL [Zestril] 20 mg PO AC-BID@1200,1800 05/06/14 [History] Ascorbic Acid [Vitamin C] 1,000 mg PO DAILY 09/09/14 [History] Omeprazole [PriLOSEC] 20 mg PO DAILY 09/09/14 [History] Atorvastatin [Lipitor] 80 mg PO HS #30 tab 12/20/14 [Rx] Nitroglycerin Sl Tabs [Nitrostat] 0.4 mg SUBLINGUAL Q5M PRN #25 tab 12/20/14 [Rx] Apixaban [Eliquis] 5 mg PO BID #60 tab 10/24/18 [Rx] Cholecalciferol [Vitamin D3 (10 Mcg = 400 Iu)] 400 unit PO DAILY 04/20/20 [History] Multivit-Min/FA/Lycopen/Lutein [Centrum Silver Tablet] 1 tab PO DAILY 04/20/20 [History] Albuterol Inhaler [Ventolin Hfa Inhaler] 2 puff INHALATION RT-Q4H PRN 08/02/20 [History] Montelukast [Singulair] 10 mg PO HS 08/02/20 [History] amLODIPine [Norvasc] 5 mg PO DAILY #30 tab 08/03/20 [Rx] Zinc 50 mg PO DAILY 12/02/20 [History] Aspirin 81 mg PO DAILY chew 12/03/20 [Rx] Metoprolol Tartrate [Lopressor] 25 mg PO TID #90 tab 12/03/20 [Rx] Propafenone [Rythmol] 150 mg PO Q8HR #90 tab 12/03/20 [Rx] Follow up Appointment(s)/Referral(s): Alex Barry MD [STAFF PHYSICIAN] - 1 Week (Call office to schedule an appointment ) Juanpablo Vincent DO [Primary Care Provider] - 1-2 days (call office to schedule appointment) Patient Instructions/Handouts: A-fib (Atrial Fibrillation) (DC) Discharge Disposition: HOME SELF-CARE
== END 2020-12-03 15:59 | disposition home or self-care (01) | DRG 309 ==
LOC: EC 21:49 → 3SCARD 12-02 02:52
PROVIDERS: ADMIT Hospitalist; ATTEND Hospitalist
DX: I48.0 Paroxysmal atrial fibrillation (principal); Z68.41 Body mass index [BMI] 40.0-44.9, adult; K76.0 Fatty (change of) liver, not elsewhere classified; I11.9 Hypertensive heart disease without heart failure; E66.01 Morbid (severe) obesity due to excess calories; Z20.822 Contact with and (suspected) exposure to COVID-19; I25.10 Atherosclerotic heart disease of native coronary artery without angina pectoris; K21.9 Gastro-esophageal reflux disease without esophagitis; E78.5 Hyperlipidemia, unspecified; E03.9 Hypothyroidism, unspecified; J45.909 Unspecified asthma, uncomplicated; Z79.890 Hormone replacement therapy; Z79.899 Other long term (current) drug therapy; Z79.01 Long term (current) use of anticoagulants; Z79.82 Long term (current) use of aspirin; Z87.11 Personal history of peptic ulcer disease; Z87.442 Personal history of urinary calculi; Z95.5 Presence of coronary angioplasty implant and graft; Z98.890 Other specified postprocedural states; Z89.011 Acquired absence of right thumb; Z88.8 Allergy status to other drugs, medicaments and biological substances; Z80.8 Family history of malignant neoplasm of other organs or systems; Z82.49 Family history of ischemic heart disease and other diseases of the circulatory system
CPT/HCPCS: 36415; 71046; 80053; 80061; 83735; 84443; 84484; 85025; 85610; 85730; 87635; 93005; 93306; 94760; 96361; 96374; 99285

== ENCOUNTER → 2021-01-17 | Outpatient (CLI) | payer MEDICARE ==
--- NOTE | 2021-01-17 18:12 | CONS ---
CONSULTATION DATE OF SERVICE: 01/17/2021 This 65-year-old gentleman has been evaluated in the sleep center for possible obstructive sleep apnea-hypopnea syndrome. HISTORY OF PRESENT ILLNESS/SLEEP-WAKE EVALUATION: According to the patient's , he has loud snoring. He sleeps about 6 to 7 hours per night with 4 awakenings with nocturia. Usually he has no problems with falling asleep. No TV in bedroom. The patient usually sleeps on the side position. He normally may take one nap during the day. [place] Sleepiness Scale is 5. PAST MEDICAL HISTORY: Positive for atrial fibrillation, coronary artery disease, hypertension, hyperlipidemia, hypothyroidism, peptic ulcer disease. PAST SURGICAL HISTORY: Stent insertion to coronary artery, hernia repair. MEDICATIONS: 1. Amlodipine 5 mg once a day. 2. Aspirin 81 mg once a day. 3. Eliquis 5 mg once a day. 4. Levothyroxine 112 mcg once a day. 5. Lisinopril with hydrochlorothiazide once a day. 6. Lipitor 80 mg once a day. 7. Omeprazole 20 mg once a day. 8. Montelukast 10 mg once a day. 9. Albuterol inhaler. 10.Antivert. SOCIAL HISTORY: Negative for smoking or using alcohol. FAMILY HISTORY: Cancer. REVIEW OF SYSTEMS: No fevers. No double vision. No recent chest pain. No shortness of breath. No abdominal pain. No bleeding episodes. No blood in the urine. No seizure episodes. Multiple awakenings from sleep, loud snoring, episodes of atrial fibrillation. PHYSICAL EXAMINATION: GENERAL: A pleasant gentleman without distress. VITAL SIGNS: BP 121/71, HR 54, RR 15, height 5 feet 7 inches, weight 215.0, BMI 33.6, temperature 97.0, oxygen saturation at room air 95%. HEENT: PERRLA, EOMI. Evaluation of oropharynx showed tongue protrudes midline. Extremely low position of soft palate. Mallampati IV. NECK: Supple. No JVD. Thyroid is not palpable. Wide neck; 18 inches in circumference. LUNGS: Clear to percussion and to auscultation. Good air exchange. No wheezing or rhonchi. HEART: S1, S2 regular. No murmurs, gallops or rubs. ABDOMEN: Soft and nontender. Bowel sounds are present. No organomegaly appreciated. EXTREMITIES: No clubbing or cyanosis. HOMICIDE SQUAD SERGEANT: Awake, alert, and oriented X3. Cranial nerves 2 to 7 intact. There is no fasciculation or atrophy. noted. No focal deficits observed. IMPRESSION: 1. Loud snoring, multiple awakenings from sleep with nocturia, extremely low position of soft palate, wide neck, 18 inches in circumference; obstructive sleep apnea- hypopnea syndrome. 2. Obesity. BMI 33.6. 3. History of atrial fibrillation. 4. Coronary artery disease, status post stent insertion. 5. Hypertension. 6. Hyperlipidemia. 7. Hypothyroidism. 8. History of peptic ulcer disease in the past. 9. Status post hernia repair. PLAN: 1. Polysomnography for evaluation of patient's breathing during sleep. 2. CPAP/BiPAP titration if sleep study confirms obstructive sleep apnea-hypopnea syndrome. 3. Preferable position during sleep on the side. 4. No driving if patient feels any sleepiness. 5. I will see patient for follow up visit to explain results of testing and following plan. Thank you very much for referring this patient for consultation. Sincerely, Jose Perez MD, PhD, FAASM Diplomat of [place] [employer] [place] [employer] Viscosity Worker of [facility] [place] MMODL / IJN: [id number] /
== END | disposition home or self-care (01) ==
LOC: SLEEP 15:23
PROVIDERS: ATTEND Internal Medicine
DX: G47.33 Obstructive sleep apnea (adult) (pediatric) (principal); E66.9 Obesity, unspecified; I25.10 Atherosclerotic heart disease of native coronary artery without angina pectoris; I10 Essential (primary) hypertension; E78.5 Hyperlipidemia, unspecified; E03.9 Hypothyroidism, unspecified; Z98.890 Other specified postprocedural states; Z68.33 Body mass index [BMI] 33.0-33.9, adult; Z86.79 Personal history of other diseases of the circulatory system; Z87.11 Personal history of peptic ulcer disease; Z79.82 Long term (current) use of aspirin; Z79.890 Hormone replacement therapy; Z79.899 Other long term (current) drug therapy
CPT/HCPCS: 99211

== ENCOUNTER 2021-01-23 10:37 | Day surgery (SDC) | payer MEDICARE ==
[2021-01-18 11:19] VITALS: BMI 32.2
[~2021-01-23 10:37] MED LIST changes: +HYDROmorphone 0.5 MG/0.5 ML SYRINGE IVP PRN; -LIDOCAINE 1% 20 ML VIAL (10MG/ML) FOR IV START INTRADERMA PRN; +MIDAZOLAM 2 MG/2 ML VIAL IV PRN; +SODIUM CHLORIDE 0.9% 1,000 ML IV SCH
[2021-01-23 11:49] LABS: Basophils % (A) 1 %; Eosinophils # (A) 0.3 k/uL (0-0.7); Eosinophils % (A) 4 %; HCT 45.1 % (39.0-53.0); HGB 15.8 gm/dL (13.0-17.5); Lymphocytes # (A) 1.6 k/uL (1.0-4.8); Lymphocytes % (A) 25 %; MCH 32.4 pg (25.0-35.0); MCHC 35.1 g/dL (31.0-37.0); MCV 92.4 fL (80.0-100.0); Mean Platelet Volume 7.1; Monocytes # (A) 0.6 k/uL (0-1.0); Monocytes % (A) 9 %; Neutrophils # (A) 3.7 k/uL (1.3-7.7); Neutrophils % (A) 59 %; Platelet Count 163 k/uL (150-450); RBC 4.88 m/uL (4.30-5.90); RDW 12.4 % (11.5-15.5); WBC 6.2 k/uL (3.8-10.6)
[2021-01-23 11:54] LABS: Calcium 9.3 mg/dL (8.4-10.2); Potassium 3.9 mmol/L (3.5-5.1)
[2021-01-23] MEDS ORDERED: SUCCINYLCHOLINE CHLORIDE 100 MG/5 ML SYR IV ONE (12:10)
[2021-01-23] MEDS ORDERED: PROPOFOL 10 MG/ML 20 ML VIAL IV ONE (12:10)
[2021-01-23] MEDS ORDERED: MIDAZOLAM 2 MG/2 ML VIAL ONE (12:10)
[2021-01-23] MEDS ORDERED: ISOPROTERENOL 250 MCG/1.25 ML SYR IV ONE (12:10)
[2021-01-23] MEDS ORDERED: fentaNYL (PF) 50 MCG/ML 2 ML AMP ONE (12:10)
[2021-01-23] MEDS ORDERED: HEPARIN SODIUM,PORCINE 10,000 UNIT/ML 1 ML VIAL ONE (12:10)
[2021-01-23] MEDS ORDERED: PROTAMINE SULFATE 10 MG/ML 5 ML VIAL IV ONE (12:10)
[2021-01-23] MEDS ORDERED: FUROSEMIDE 10 MG/ML 2 ML VIAL ONE (12:10)
[2021-01-23] MEDS ORDERED: LIDOCAINE 1% INJ 10MG/ML (20 ML MDV) ONE (12:10)
[2021-01-23] MEDS ORDERED: PHENYLEPHRINE-0.9% NACL SYG 1,000 MCG/10 ML SYRINGE ONE (12:10)
[2021-01-23] MEDS ORDERED: LIDOCAINE 1% INJ 10MG/ML (20 ML MDV) SQ ONE (13:00)
[2021-01-23] MEDS ORDERED: HEPARIN SODIUM (1,000 UNIT/ML) 1,000 UNIT in SODIUM CHLORIDE 0.9% 1,000 ML IRRIGATION ONE (13:10)
[2021-01-23] MEDS ORDERED: IOPAMIDOL-370 100ML BTL INJ ONE (14:52)
[2021-01-23] MEDS ORDERED: HEPARIN SOD,PORK IN 0.45% NACL 25,000 UNIT in 0.45% NACL 1 250ML.BAG IV ONE (14:53)
[2021-01-23] MEDS ORDERED: SODIUM CHLORIDE 0.9% 500 ML 500 ML IV ONE (16:22)
[2021-01-23] MEDS ORDERED: HYDROcodone/APAP 5-325MG 1 EACH TAB PO PRN (16:44)
[2021-01-23] MEDS ORDERED: ALBUTEROL NEBULIZED 2.5 MG/3 ML INHALATION PRN (16:47)
--- NOTE | 2021-01-23 17:03 | P.EPPROC ---
- EP Procedure Note Electrophysiology Procedure Note: PROCEDURE A. fib ablation Pulmonary vein isolation/cryoablation Linear ablation in the left atrial septum DIAGNOSIS Atrial fibrillation, symptomatic, refractory to therapy Paroxysmal Hypertension RESULT No left atrial appendage mass seen on intracardiac echo Successful A. fib ablation/pulmonary vein isolation of all veins using cryo- ablation Complete entrance block in all 4 veins confirmed No evidence for phrenic nerve injury Linear ablation along complex fractionated electrograms in the posterior septum Voltage mapping revealed scar in the Posterior LA wall, inter-venous, non- capture with high output pacing Esophageal deflection YES Electrical cardioversion with a synchronized shock across the chest NO PROCEDURE DETAILS Patient was brought to the EP lab in a fasting state. Written informed consent was obtained prior to the procedure. Procedure performed under general a nesthesia After initial muscle relaxant use, muscle relaxants were not given thereafter in order to assess phrenic nerve during procedure. Patient prepped and draped as per protocol Full cryo-set up with standard preparation of the cryoablation tools done. Femoral Venous access obtained on the right and left groins Venous and arterial Sheaths placed. Diagnostic catheters for the high right atrium, phrenic nerve stimulation and pacing, His bundle, RV and coronary sinus placed Intracardiac echo catheter placed. Long sheath placed in the right atrium Left and right transseptal catheterization performed under intracardiac echo guidance. Intravenous heparin with aCT above 300 Later, catheter positioning and balloon positioning in the left atrium, under intracardiac echo guidance Diagnostic EP study with Drug infusion Coronary sinus pacing and recording Baseline measurements Sinus cycle length 892 ms, WI interval 131 ms, QRS 99 ms and QT 440 ms AH 81, HV 41 ms Atrial pacing performed from the high right atrium and the coronary sinus AV node Wenckebach block 310 ms Sinus node recovery times at 600 504 100 ms were 1081, 1111 and 1119 ms. Bursts from the coronary sinus. Occasional runs of slow nonsustained atrial tachycardia for 4-5 beats only. No sustained A. fib Atrial extra stimulation was performed AV node ERP 500\to 60 ms Atrial ERP 500\to 10 ms High-dose Isuprel infused Burst ablation for 4 ms down to 250 ms, no atrial fibrillation/no atrial tachycardia Transseptal catheterization performed RA pressure 24/9/16 LA pressure 14/9/12 Transseptal catheterization performed with standard sheath. The cryoablation sheath was then placed with an over the wire exchange without any acute complications. All 4 pulmonary veins were isolated in the following sequence: Left superior followed by left inferior followed by right superior followed by right inferior The cryo-ablation balloon was placed at the os of each vein 1.5 mL of IV dye was injected to confirm an occluded vein Goal during cryoablation was to achieve complete occlusion of the pulmonary vein, achieve -30 degrees C at 30 seconds and achieve -40 degrees C at 60 seconds and a time to effect of less than 60-90 seconds, . If not the balloon was repositioned to obtain this result After completion of Cryoblation with durations from 180-240 seconds, entrance block was confirmed with the Attain circular catheter in a roving fashion around the antrum of the pulmonary veins Phrenic nerve pacing was performed from the SVC, right innominate vein area and diaphragm voltage was monitored. Diaphragmatic contractions were also monitored manually for strength of contraction. Parameter goals for each cryo freeze Complete occlusion of the appropriate vein -30 degrees C by 30 seconds -40 degrees C by 60 seconds Minimum between minus 40-55 degrees C Thaw time greater than 10 seconds Balloon visualized by intracardiac echo The esophagus was intubated. Esophageal Temperature monitoring with a CIRCA catheter formed. Esophageal deflection for hypothermia of the esophagus below 30 degrees C Left superior pulmonary vein/common Complete isolation, entrance block Left inferior pulmonary vein/common left-sided vein Complete isolation, entrance block Right superior pulmonary vein, during phrenic nerve pacing Complete isolation, entrance block Right inferior pulmonary vein, during phrenic nerve pacing Complete isolation, entrance block At the end of the procedure the Achieve catheter was once again used to check for entrance block Phrenic nerve stimulation was performed to confirm diaphragmatic stimulation the end of the procedure Cine fluoroscopy was performed at the very end of the procedure to confirm movement of both diaphragms with inspiration and expiration RF ablation catheter was placed in the left atrium [place] mapping was performed The veins are completely isolated The posterior wall also appeared to be isolated in its inter-venous segment High output pacing was also performed here and non-capture was noted Therefore no roof line was made Complex fractionated electrograms were noted along the posterior septum Linear RF ablation was performed in the posterior septum and then connected to the right superior pulmonary vein of the roof and right inferior pulmonary vein at the 6 o'clock position At the end of the procedure the patient was extubated Heparin was reversed Venous sheaths were removed and hemostasis assured PROCEDURES PERFORMED Diagnostic EP study CS pacing and recording Left and right transseptal catheterization Catheter the mapping of the tachycardia (NOT 3D mapping) Intracardiac echocardiography Pulmonary vein isolation with transseptal and comprehensive EPS, [id number] Linear ablation, left atrium, +[id number] Drug Infusion +[id number]
[2021-01-23] MEDS ORDERED: HYDROmorphone 0.5 MG/0.5 ML SYRINGE IVP ONE (17:16)
[2021-01-23] MEDS ORDERED: SODIUM CHLORIDE 0.9% 1,000 ML IV ONE (17:44)
[2021-01-23] MEDS ORDERED: ACETAMINOPHEN IV (For NPO) 1,000 MG in EMPTY BAG 1 BAG IVPB ONE (18:30)
[2021-01-23] MEDS: lisinopriL 20 MG TAB PO SCH (19:35)
[2021-01-23] MEDS: METOPROLOL TARTRATE 25 MG TAB PO SCH (20:09)
[2021-01-23] MEDS: APIXABAN 5 MG TAB PO SCH (20:09)
[2021-01-23 20:23] VITALS: RESP 16
[2021-01-23] MEDS ORDERED: ATORVASTATIN 80 MG TAB PO SCH (21:00)
[2021-01-24] MEDS: ACETAMINOPHEN TAB 325 MG TAB PO PRN ×2 (05:49→12:07)
[2021-01-24] MEDS ORDERED: LEVOTHYROXINE 112 MCG TAB PO SCH (06:30)
[2021-01-24] MEDS ORDERED: PANTOPRAZOLE 40 MG TABLET PO SCH (07:30)
[2021-01-24] MEDS: METOPROLOL TARTRATE 25 MG TAB PO SCH (07:46)
[2021-01-24] MEDS: APIXABAN 5 MG TAB PO SCH (07:47)
[2021-01-24 07:54] VITALS: TEMP 98
[2021-01-24] MEDS ORDERED: hydroCHLOROthiazide 25 MG TAB PO SCH (09:00)
[2021-01-24] MEDS ORDERED: ASPIRIN 81 MG PO SCH (09:00)
[2021-01-24] MEDS ORDERED: amLODIPine 5 MG TAB PO SCH (09:00)
[2021-01-24] MEDS: lisinopriL 20 MG TAB PO SCH (12:07)
[2021-01-24 12:09] VITALS: BP 111/72; PULSE 80
--- NOTE | 2021-01-24 16:07 | DS ---
DISCHARGE SUMMARY Mr. Carreon has paroxysmal atrial fibrillation refractory to propafenone 150 mg 3 times a day. He underwent atrial fibrillation ablation yesterday successfully, with pulmonary vein isolation and ablation in the septum of the left atrium. His posterior wall was also completely isolated while cryoablation of the pulmonary veins was performed. He is doing well this morning. He had a bit of pleuritic chest discomfort this morning, but he does not have it any further. He has no pain now, no dizziness, no lightheadedness. He is sitting comfortably in a chair. He is not dizzy. On examination, no JVD. Blood pressure is 110/67 mmHg, afebrile 97.6 degrees Fahrenheit, pulse rate in the 70s. Heart sounds: S1, S2 are normal. No rub. No gallop. Lungs are clear. No rhonchi, no crackles. Groins have healed well. Sutures are out. No lower extremity edema. Twelve-lead EKG was reviewed and shows sinus rhythm with normal cardiac intervals and T- wave inversions in V5, V6, and flattened T-waves in the inferior leads. IMPRESSION: Paroxysmal, drug-refractory atrial fibrillation, status post pulmonary vein isolation and septal ablation. The posterior wall also was isolated during cryoablation of the pulmonary veins, and therefore a roof line was not necessary. High output pacing in the posterior wall between the left and right pulmonary veins showed non-capture at multiple sites. PLAN: 1. Discharge home today. 2. Continue Eliquis. 3. Reduce propafenone to 150 mg twice daily. 4. Reduce metoprolol to 25 mg twice daily. 5. Continue all other medications. I will see him again in about a week to 10 days post discharge. MMODL / IJN: [id number] /
== END 2021-01-24 15:38 | disposition home or self-care (01) ==
LOC: CATHEP 10:37 → 6NMEDSUR 18:12 → CATHEP 01-24 15:38
PROVIDERS: ATTEND Internal Medicine Clinical Cardiac Electrophysiology
DX: I48.0 Paroxysmal atrial fibrillation (principal); I25.10 Atherosclerotic heart disease of native coronary artery without angina pectoris; I10 Essential (primary) hypertension; E78.5 Hyperlipidemia, unspecified; R73.03 Prediabetes; M54.2 Cervicalgia; E66.9 Obesity, unspecified; Z68.32 Body mass index [BMI] 32.0-32.9, adult; Z95.5 Presence of coronary angioplasty implant and graft; Z82.49 Family history of ischemic heart disease and other diseases of the circulatory system; Z79.01 Long term (current) use of anticoagulants; Z79.899 Other long term (current) drug therapy; Z79.890 Hormone replacement therapy; Z88.8 Allergy status to other drugs, medicaments and biological substances
CPT/HCPCS: 93623; 93662; 93613; 93656; 93657; 80048; 85025; 87635; C1759; C1769 ×5; C1894 ×2; C1730 ×2; C1893; C1733; C1766; J2001; J1644 ×2; J0131; J1170; Q9967

== ENCOUNTER 2021-06-26 10:55 | Day surgery (SDC) | payer MEDICARE ==
[2021-06-22 12:16] VITALS: BMI 33.4
[~2021-06-26 10:55] MED LIST changes: -HYDROmorphone 0.5 MG/0.5 ML SYRINGE IVP PRN; -LACTATED RINGERS 1,000 ML IV SCH; -MIDAZOLAM 2 MG/2 ML VIAL IV PRN
[2021-06-26] MEDS ORDERED: LIDOCAINE 1% INJ 10MG/ML (20 ML MDV) ONE (12:32)
[2021-06-26] MEDS ORDERED: LIDOCAINE 1% INJ 10MG/ML (20 ML MDV) SQ ONE (12:33)
--- NOTE | 2021-06-26 12:45 | P.EPPROC ---
- EP Procedure Note Electrophysiology Procedure Note: Loop monitor implant Primary physicians: Dr. Vincent [employer] Bander: Dr. Barry Indication: Atrial fibrillation Patient was brought to the EP lab in a fasting state. Written informed consent was obtained prior to the procedure. The left pectoral area was prepped and draped per protocol. Intravenous antibiotic was administered preoperatively. A subcutaneous Loop monitor was implanted successfully and the wound was closed per protocol. The device was programmed to detect significant bere- arrhythmic and tachy-arrhythmic events, per protocol. Device and programming details: A. fib detection protocol Patient underwent EP procedure under conscious sedation/moderate sedation, monit oring of the level of consciousness and physiologic parameters including but not limited to vital signs and oxygenation. Patient tolerated the procedure well without any acute complications. Start time: 1232 Stop time: 1241
--- NOTE | 2021-06-26 12:47 | P.EPPROC ---
- EP Procedure Note Electrophysiology Procedure Note: Dear Dr. Melisa Rivas on underwent implantation of loop monitor for making diagnosis of recurrent palpitations. He gets short of breath with propafenone and I'll discontinue propafenone for now I will keep you posted once we have a clear diagnosis Thank you for entrusting me with the care of the patient Warm regards Sincerely Alex Barry
[2021-06-26 14:49] VITALS: BP 122/58; PULSE 62; RESP 16
== END 2021-06-26 13:15 | disposition home or self-care (01) ==
LOC: CATHEP 10:55
PROVIDERS: ATTEND Internal Medicine Clinical Cardiac Electrophysiology
DX: I48.91 Unspecified atrial fibrillation (principal)
CPT/HCPCS: 33285; C1764; J0690; J2001

== ENCOUNTER → 2021-08-02 | Outpatient (CLI) | payer MEDICARE ==
--- NOTE | 2021-08-02 17:55 | SFUN ---
SLEEP CENTER FOLLOW UP NOTE DATE OF SERVICE: 08/02/2021 This 65-year-old gentleman has been followed in Sleep Center for treatment of obstructive sleep apnea-hypopnea syndrome. Recently the patient had a polysomnogram which showed severe obstructive sleep apnea and then CPAP titration. The best results were reached with BiPAP. Subsequently the patient was recommended to start treatment with BiPAP. Today is his first visit on treatment with BiPAP. According to the patient, his quality of life is better because he has had fewer episodes of changes of heart rate related to atrial fibrillation after being started on treatment with BiPAP. [place] Sleepiness Scale today is 5, which is normal. I checked his BiPAP unit. Maximal inspiratory pressure 20, minimal expiratory pressure 7, pressure support 4, usage 30/30 nights for more than 4 hours, average 5.4 hours per night. Average BiPAP pressure 9.4 cm of water over 15.3 cm of water. Average apnea- hypopnea index for the last month is 19.2 with apnea index 17.7 and central apnea index 6.6, which indicates that the patient still has abnormalities of respiration while on treatment with BiPAP. MEDICATIONS: Amlodipine, aspirin, Eliquis, levothyroxine, lisinopril with hydrochlorothiazide, Lipitor, omeprazole, montelukast, albuterol inhaler, Antivert. PHYSICAL EXAMINATION: GENERAL: Pleasant patient in no distress. VITAL SIGNS: BP 128/67, HR 78, RR 15, weight 227, temperature 98.9, oxygen saturation at room air 95%. HEENT: PERRLA, EOMI, evaluation of oropharynx showed tongue protrudes midline. Extremely low position of soft palate; Mallampati IV. NECK: Supple, no JVD. Thyroid is not palpable. LUNGS: Clear to percussion and to auscultation. Good air exchange. No wheezing or rhonchi. HEART: S1, S2 regular. ABDOMEN: Slightly obese. EXTREMITIES: No clubbing or cyanosis. COLLECTIONS REPRESENTATIVE: Awake, alert, and oriented X3. Cranial nerves 2 to 7 intact. There is no fasciculation or atrophy. noted. No focal deficits observed. IMPRESSION: 1. Severe obstructive sleep apnea-hypopnea syndrome; apnea-hypopnea index 54.2 with oxygen desaturation to 74%. Patient demonstrated 100% compliance with treatment, benefitting from treatment. Apnea-hypopnea index improved but is still above normal. 2. History of atrial fibrillation. 3. Obesity. 4. Coronary artery disease, status post stent insertion. 5. Hypertension. 6. Hyperlipidemia. 7. Hypothyroidism. 8. History of peptic ulcer disease in the past. 9. Status post hernia repair. PLAN: 1. I changed regimen of the machine. I increased maximal inspiratory pressure to 23. 2. Patient will continue to use PAP equipment every night for the whole night. 3. Sleep hygiene with regular time in bed for at least 7-1/2 to 8 hours. 4. Precautions related to driving. No driving if feeling sleepiness. 5. I will maintain all necessary prescription for PAP supplies including mask, tube, filters. 6. Watching weight. 7. Follow-up visit in 2 months or earlier if patient has any problems. Thank you very much for allowing me to participate in the management of your patient. Sincerely, Jose Perez MD, PhD, FAASM Diplomat of [place] [employer] Sleep Medicine Board of [place] [employer] Hatchery Manager of [facility] [employer] MMODL / EVANGELINAN: [id number] /
== END ==
LOC: SLEEP 14:56
PROVIDERS: ATTEND Internal Medicine
DX: G47.33 Obstructive sleep apnea (adult) (pediatric) (principal); I48.91 Unspecified atrial fibrillation; E66.9 Obesity, unspecified; I25.10 Atherosclerotic heart disease of native coronary artery without angina pectoris; I10 Essential (primary) hypertension; E78.5 Hyperlipidemia, unspecified; E03.9 Hypothyroidism, unspecified; Z87.11 Personal history of peptic ulcer disease; Z95.5 Presence of coronary angioplasty implant and graft; Z98.890 Other specified postprocedural states; Z79.01 Long term (current) use of anticoagulants; Z79.890 Hormone replacement therapy; Z79.899 Other long term (current) drug therapy; Z88.8 Allergy status to other drugs, medicaments and biological substances

== ENCOUNTER → 2021-10-04 | Outpatient (CLI) | payer MEDICARE ==
--- NOTE | 2021-10-04 22:37 | SFUN ---
SLEEP CENTER FOLLOW UP NOTE DATE OF SERVICE: 10/04/2021 This 65-year-old gentleman has been followed in Sleep Center for treatment of obstructive and central sleep apnea-hypopnea syndrome. I saw this patient 2 months ago and increased his BiPAP pressure with a goal to make his apnea-hypopnea index less. During last visit it was 19.2, including central apnea index 6.6. He sleeps better. On BiPAP machine he does not have so many episodes of nocturia as before. Now it is only one time per night, and before it was several times. [place] Sleepiness Scale today is 4. I checked his BiPAP unit. Maximal inspiratory pressure 23, minimal expiratory pressure 7, pressure support 4. Average pressure is 20/16. Usage 30/30 nights for more than 4 hours, average 5.9 hours per night. Leak is 7 L/minute. Apnea-hypopnea index is 17, which includes apnea index 15.9, including central apneas 5.4. MEDICATIONS: 1. Amlodipine 5 mg once a day. 2. Aspirin 81 mg once a day. 3. Eliquis 5 mg twice a day. 4. Levothyroxine 112 mcg twice a day. 5. Metoprolol 25 mg 3 times a day. 6. Lisinopril 20 mg 2 tablets, hydrochlorothiazide 25 mg once a day. 7. Lipitor 80 mg once a day. 8. Omeprazole 20 mg once a day. 9. Antivert 25 mg once a day. 10.Albuterol inhaler as needed. 11.Nitrostat 0.4 mg as needed. PHYSICAL EXAMINATION: GENERAL: Pleasant patient in no distress. VITAL SIGNS: BP 131/77, HR 82, RR 15, height 5 feet 6-1/2 inches, weight 230 pounds, body mass index 36.5, temperature 96.5, oxygen saturation at room air 95%. HEENT: PERRLA, EOMI, evaluation of oropharynx showed tongue protrudes midline. Extremely low position of soft palate; Mallampati IV. NECK: Supple, no JVD. Thyroid is not palpable. LUNGS: Clear to percussion and to auscultation. Good air exchange. No wheezing or rhonchi. HEART: S1, S2 regular. No murmurs, gallops, or rubs. ABDOMEN: Soft and nontender. Bowel sounds are present. No organomegaly appreciated. EXTREMITIES: No clubbing or cyanosis. MECHANICS HANDYMAN: Awake, alert, and oriented X3. Cranial nerves 2 to 7 intact. There is no fasciculation or atrophy. noted. No focal deficits observed. IMPRESSION: 1. Severe obstructive sleep apnea-hypopnea syndrome; apnea-hypopnea index 54.2 with oxygen desaturation to 74%. Patient demonstrated great compliance with treatment, benefitting from treatment, but apnea-hypopnea index is still increased at 17, although better than during previous visit. 2. History of atrial fibrillation. 3. Obesity. 4. Coronary artery disease, status post stent insertion. 5. Hypertension. 6. Hyperlipidemia. 7. Hypothyroidism. 8. History of peptic ulcer disease in the past. 9. Status post hernia repair. PLAN: 1. I increased his pressure in the machine to the level of maximal inspiratory pressure 25, minimal expiratory pressure 7, pressure support 4. 2. I discussed with the patient the possibility of using a BiPAP ST mode machine. At present he prefers to continue to use his BiPAP machine. 3. Patient will continue to use PAP equipment every night for the whole night. 4. Sleep hygiene with regular time in bed for at least 7-1/2 to 8 hours. 5. Precautions related to driving. No driving if feeling sleepiness. 6. I will maintain all necessary prescription for PAP supplies including mask, tube, filters. 7. Watching weight. 8. Follow-up visit in 2 months or earlier if patient has any problems. Thank you very much for allowing me to participate in the management of your patient. Sincerely, Jose Perez MD, PhD, FAASM Diplomat of [place] Board of Medical Specialties Sleep Medicine Board of [place] Board of Internal Medicine Rubber Off of [facility] [place] MMODL / EVANGELINAN: [id number] /
== END ==
LOC: SLEEP 13:51
PROVIDERS: ATTEND Internal Medicine
DX: G47.33 Obstructive sleep apnea (adult) (pediatric) (principal); G47.36 Sleep related hypoventilation in conditions classified elsewhere; I48.91 Unspecified atrial fibrillation; E66.9 Obesity, unspecified; I25.10 Atherosclerotic heart disease of native coronary artery without angina pectoris; I10 Essential (primary) hypertension; E78.5 Hyperlipidemia, unspecified; E03.9 Hypothyroidism, unspecified; Z98.890 Other specified postprocedural states; Z87.11 Personal history of peptic ulcer disease; Z68.36 Body mass index [BMI] 36.0-36.9, adult; Z99.89 Dependence on other enabling machines and devices; Z79.82 Long term (current) use of aspirin; Z79.01 Long term (current) use of anticoagulants; Z79.890 Hormone replacement therapy; Z79.899 Other long term (current) drug therapy; Z88.8 Allergy status to other drugs, medicaments and biological substances

== ENCOUNTER → 2021-12-20 | Outpatient (CLI) | payer MEDICARE ==
--- NOTE | 2021-12-20 17:02 | SFUN ---
SLEEP CENTER FOLLOW UP NOTE DATE OF SERVICE: 12/20/2021 This 66-year-old gentleman has been followed in Sleep Center for treatment of obstructive sleep apnea-hypopnea syndrome. The patient continues to use BiPAP equipment every night. According to the patient, he sleeps well with the machine. [place] Sleepiness Scale today is 4, which is normal. I checked his BiPAP unit. Maximal inspiratory pressure is 25, minimal expiratory pressure 7, pressure support 4. I increased pressure during the previous visit because apnea-hypopnea index was increased. Average pressure currently is 20.1/16.1. Sometimes the patient is experiencing difficulties with the high pressure and started to have leak from his full-face mask. Usage is 30/30 nights for more than 4 hours, average usage 5.4 hours per night; good compliance. Leak is 11 L/minute, which is a normal amount. Apnea-hypopnea index increased to 14.3, and that includes central apnea- hypopnea index 4.2. MEDICATIONS: 1. Amlodipine 5 mg once a day. 2. Aspirin 81 mg once a day. 3. Eliquis 5 mg twice a day. 4. Levothyroxine 112 mcg twice a day. 5. Metoprolol 25 mg 3 times a day. 6. Lisinopril 20 mg twice a day. 7. Hydrochlorothiazide 25 mg once a day. 8. Lipitor 80 mg once a day. 9. Montelukast 10 mg once a day. 10.Omeprazole 20 mg once a day. 11.Albuterol inhaler. 12.Antivert as needed. PHYSICAL EXAMINATION: GENERAL: Pleasant patient in no distress. VITAL SIGNS: BP 121/70, HR 104, RR 16, height 5 feet 6 -1/2 inches, weight 227, BMI 36, temperature 98.4, oxygen saturation at room air 96%. HEENT: PERRLA, EOMI, evaluation of oropharynx showed tongue protrudes midline. Extremely low position of soft palate; Mallampati IV. NECK: Supple, no JVD. Thyroid is not palpable. LUNGS: Clear to percussion and to auscultation. Good air exchange. No wheezing or rhonchi. HEART: S1, S2 regular. No murmurs, gallops, or rubs. ABDOMEN: Soft and nontender. Bowel sounds are present. No organomegaly appreciated. EXTREMITIES: No clubbing or cyanosis. CRYPTOLOGICAL TECHNICIAN: Awake, alert, and oriented X3. Cranial nerves 2 to 7 intact. There is no fasciculation or atrophy. noted. No focal deficits observed. IMPRESSION: 1. Severe obstructive sleep apnea-hypopnea syndrome. During diagnostic sleep study, apnea-hypopnea index was 54.2. Patient demonstrated great compliance with treatment, benefitting from treatment, but apnea-hypopnea index increased to , including central apnea index 4.2, which is better than during the previous visit. The patient is experiencing some difficulties with the high pressure. Sometimes there is a leak under the mask on the face. 2. History of atrial fibrillation. 3. Obesity. 4. Coronary artery disease, status post stent insertion. 5. Hypertension. 6. Hyperlipidemia. 7. Hypothyroidism. 8. History of peptic ulcer disease in the past. 9. Status post hernia repair. PLAN: 1. I changed the pressure down to 20/16; that is the usual average therapeutic level of pressure for patient to make it more comfortable for him to use treatment. 2. We increased RAMP time to 45 minutes instead of 30 minutes. 3. I discussed with the patient the possibility of treating him with BiPAP ST mode machine. At the present time he prefers to continue to use his present BiPAP unit. 4. Patient will continue to use PAP equipment every night for the whole night. 5. Sleep hygiene with regular time in bed for at least 7-1/2 to 8 hours. 6. Precautions related to driving. No driving if feeling sleepiness. 7. I will maintain all necessary prescription for PAP supplies including mask, tube, filters. 8. Watching weight. 9. Follow-up visit in 4 months or earlier if patient has any problems. Thank you very much for allowing me to participate in the management of your patient. Sincerely, Jose Perez MD, PhD, FAASM Diplomat of [place] Board of Medical Specialties Sleep Medicine Board of [place] Board of Internal Medicine Intellectual Property Manager of [facility] [place] MMODL / EVANGELINAN: [id number] /
== END ==
LOC: SLEEP 15:12
PROVIDERS: ATTEND Internal Medicine
DX: G47.33 Obstructive sleep apnea (adult) (pediatric) (principal); I48.91 Unspecified atrial fibrillation; E66.9 Obesity, unspecified; I25.10 Atherosclerotic heart disease of native coronary artery without angina pectoris; Z95.5 Presence of coronary angioplasty implant and graft; I10 Essential (primary) hypertension; E78.5 Hyperlipidemia, unspecified; E03.9 Hypothyroidism, unspecified; Z87.11 Personal history of peptic ulcer disease; Z79.01 Long term (current) use of anticoagulants; Z79.82 Long term (current) use of aspirin; Z79.890 Hormone replacement therapy; Z99.89 Dependence on other enabling machines and devices; Z88.8 Allergy status to other drugs, medicaments and biological substances

== ENCOUNTER → 2022-04-03 | Outpatient (CLI) | payer MEDICARE ==
--- NOTE | 2022-04-03 11:53 | P.PN ---
Subjective DATE: 04/03/2022 FOLLOW UP VISIT. Patient with obstructive sleep apnea hypopnea syndrome return to sleep center for follow-up visit. Information from previous visit have been reviewed. Patient is using PAP equipment every night for the whole night, getting PAP supplies in time. After decreasing pressure in BiPAP unit during previous visit patient sleeps better but steel sometimes has problem with vibration over the mask in the middle of the night. [place] sleepiness scale is 5. I checked information from BiPAP unit. BiPAP unit pressure maximal inspiratory pressure 20, minimal expiratory pressure 7, pressure support for, average pressure 19/15 cm H2O. Usage is 100 % for more then 4 hours, average 0.4 hours per night. Leak is 17 l/m, which is in acceptable range. Apnea Hypopnea Index is 9.8, which includes central apnea index 2.7. That showed improvements comparing. The previous visit when apnea-hypopnea index was increased to 14.3 with central apnea hypopnea index 4.2. MEDICATIONS:1. Amlodipine 5 mg once a day 2. Aspirin 81 mg once a day 3. Eliquis 5 mg twice a day 4. Levothyroxine 112 g once a day 5. Metoprolol 25 mg 3 times a day 6. Lisinopril 20 mg twice a day 7. Hydrochlorothiazide 25 mg once a day 8. Lipitor 80 mg once a day 9. Albuterol inhaler 10. Omeprazole 20 mg once a day 11. Montelukast 10 mg once a day Antivert 25 mg as needed, Nitrostat 0.4 mg as needed During physical exam: GENERAL: A pleasant patient without any distress. VITAL SIGNS: BP 110/70, HR 75, RR 98 , weight to 226, temperature 96.7, height 5 foot 6-1/2 inches, body mass index around 35, oxygen saturation at room air 97 % . HEENT: PERRLA, EOMI.low position of soft palate, Mallapati for . NECK: Supple. No JVD. LUNGS: Clear to percussion and to auscultation. Good air exchange. No wheezing or rhonchi. HEART: S1, S2 regular. ABDOMEN: Soft and nontender. Slightly obese EXTREMITIES: No clubbing or cyanosis. BAND LINING BANDER: Awake, alert, and oriented x3. No focal deficit. Impressions: 1. Obstructive sleep apnea-hypopnea syndrome. Patient demonstrated great compliance with treatment, benefiting from treatment. Apnea-hypopnea index improved comparing to the previous visit but steel slightly above normal range and include some central apneas. 2. History of atrial fibrillation. 3. Coronary artery disease status post stent insertion. 4. Obesity. 5. Hypertension. 6. Hyperlipidemia. 7. Hypothyroidism. 8. History of peptic ulcer disease in the past. 9. Status post hernia repair. 10 [] Plan: 1. Continue using PAP equipment every night for the whole night. I changed maximal inspiratory pressure down to 18 cm of water. 2. To change air filter at least 1-2 times per month. 3. PAP unit should stay lower then position of the head. 4. Advised patient to remove all remaining water from humidifier canister daily and make it dry after each usage. Refill canister with fresh distilled water before each usage. 5. Sleep hygiene with regular time in bed for at least 8 hours. 6. Precautions related to driving. No driving if feel any sleepiness. 7. I will maintain prescription for PAP supplies including mask, tube, filters. 8. Follow up visit in 6 months or earlier if patient has any problems. 9. Watching weight. Thank you very much for allowing me to participate in the management of your patient. Jose Perez MD, PhD, FAASM. Diplomat of [place] Board of Sleep Medicine, Sleep Medicine Board by [place] Board of Internal Medicine Seismographer of [facility] [place]
== END ==
LOC: SLEEP 11:23
PROVIDERS: ATTEND Internal Medicine
DX: G47.33 Obstructive sleep apnea (adult) (pediatric) (principal); G47.31 Primary central sleep apnea; I48.91 Unspecified atrial fibrillation; I25.10 Atherosclerotic heart disease of native coronary artery without angina pectoris; Z95.5 Presence of coronary angioplasty implant and graft; E66.9 Obesity, unspecified; I10 Essential (primary) hypertension; E78.5 Hyperlipidemia, unspecified; E03.9 Hypothyroidism, unspecified; Z87.19 Personal history of other diseases of the digestive system; Z98.890 Other specified postprocedural states; Z79.01 Long term (current) use of anticoagulants; Z79.890 Hormone replacement therapy; Z79.82 Long term (current) use of aspirin; Z79.899 Other long term (current) drug therapy; Z68.35 Body mass index [BMI] 35.0-35.9, adult; Z88.8 Allergy status to other drugs, medicaments and biological substances

== ENCOUNTER → 2023-03-13 | Outpatient (CLI) | payer MEDICARE ==
--- NOTE | 2023-03-13 17:50 | P.PN ---
Subjective DATE: 03/13/2023 FOLLOW UP VISIT. Patient with obstructive sleep apnea hypopnea syndrome return to sleep center for follow-up visit. Information from previous visit have been reviewed. Patient is using PAP equipment every night for the whole night, getting PAP supplies in time. The patient does not have significant problems with the mask, PAP unit and humidification. [place] sleepiness scale is 4, which is normal. I checked information from PAP unit. PAP unit pressure maximal inspiratory pressure 18, minimal expiratory pressure 7, pressure-support 4, average pressure 17.5 / 13.5 cm H2O. Usage is 83 % for more then 4 hours, average 5.5 hours per night. Leak is 3.5 l/m, which is in acceptable range. Apnea Hypopnea Index increased to 18.3 for the last months, which include 8.1 central and 9.5 obstructive. For the last week apnea-hypopnea index is 10.7, including centrals 3.6. MEDICATIONS:1. Albuterol 2. Amlodipine 3. Meclizine 4. Atorvastatin 5. Eliquis 6. Hydrochlorothiazide 7. Levothyroxine 8. Lisinopril During physical exam: GENERAL: A pleasant patient without any distress. VITAL SIGNS: BP 119/72, HR 65, RR 12, weight 210.2, patient lost 16 pounds since previous visit, temperature 96.6, oxygen saturation at room air 96 % . HEENT: PERRLA, EOMI.low position of soft palate, Mallapati 4 . NECK: Supple. No JVD. LUNGS: Clear to percussion and to auscultation. Good air exchange. No wheezing or rhonchi. HEART: S1, S2 regular. ABDOMEN: Soft and nontender.[] EXTREMITIES: No clubbing or cyanosis. CISCO NETWORK ARCHITECT: Awake, alert, and oriented x3. No focal deficit. Impressions: 1. Obstructive and central sleep apnea-hypopnea syndrome. Patient demonstrated great compliance with treatment, benefiting from treatment, but apnea-hypopnea index increased comparing to the previous visit. 2. Coronary artery disease status post stent insertion. 3. History of atrial fibrillation. 4. Hypertension. 5. Hypothyroidism. 6. Hyperlipidemia. 7. History of peptic ulcer disease in the past. 8. Mild obesity by body mass index 33.8. Plan: 1. Continue using PAP equipment every night for the whole night. 2. To change air filter at least 1-2 times per month. 3. PAP unit should stay lower then position of the head. 4. Advised patient to remove all remaining water from humidifier canister daily and make it dry after each usage. Refill canister with fresh distilled water before each usage. 5. Sleep hygiene with regular time in bed for at least 8 hours. 6. Precautions related to driving. No driving if feel any sleepiness. 7. I will maintain prescription for PAP supplies including mask, tube, filters. 8. Follow up visit in 2 months or earlier if patient has any problems. 9. Watching weight. 10. We considered titration for treatment with BiPAP ST mode if necessary. Thank you very much for allowing me to participate in the management of your patient. Jose Perez MD, PhD, FAASM. Diplomat of [place] Board of Sleep Medicine, Sleep Medicine Board by [place] Board of Internal Medicine Card Maker of [facility] [place]
== END ==
LOC: 3 N SLEEP 15:40
PROVIDERS: ATTEND Internal Medicine
DX: G47.33 Obstructive sleep apnea (adult) (pediatric) (principal); I10 Essential (primary) hypertension; I48.91 Unspecified atrial fibrillation; E78.5 Hyperlipidemia, unspecified; E03.9 Hypothyroidism, unspecified; E66.9 Obesity, unspecified; Z68.33 Body mass index [BMI] 33.0-33.9, adult; Z98.61 Coronary angioplasty status; Z87.11 Personal history of peptic ulcer disease; Z79.899 Other long term (current) drug therapy; Z79.890 Hormone replacement therapy; Z79.51 Long term (current) use of inhaled steroids; Z99.89 Dependence on other enabling machines and devices; Z88.8 Allergy status to other drugs, medicaments and biological substances

== ENCOUNTER → 2023-05-29 | Outpatient (CLI) | payer MEDICARE ==
--- NOTE | 2023-05-29 11:44 | P.PN ---
Subjective DATE: 05/29/2023 FOLLOW UP VISIT. Patient with obstructive sleep apnea hypopnea syndrome return to sleep center for follow-up visit. Information from previous visit have been reviewed. Patient is using BPAP equipment every night for the whole night, getting PAP supplies in time. The patient does not have significant problems with the mask, PAP unit and humidification. [place] sleepiness scale is 4. I checked information from BPAP unit. PAP unit pressure maximal inspiratory pressure 18, minimal expiratory pressure 7, pressure-support 4, average pressure 16/12 cm H2O. Usage is 100 % for more then 4 hours, average 6 hours per night. Leak is 5.6 l/m, which is in acceptable range. Apnea Hypopnea Index is 9.8, which is significant improvements comparing to the previous visit, when it was 18.3. Central's 2.5 and obstructive 5.9 per hour. Patient sleeps well with BiPAP MEDICATIONS:1. Albuterol 2. Amlodipine 5 mg once a day 3. Meclizine 25 mg as needed 4. Eliquis 5 mg twice a day 5. Hydrochlorothiazide 25 mg once a day 6. Lisinopril 20 mg twice a day 7. Metoprolol 25 mg twice a day 8. Omeprazole 20 mg once a day During physical exam: GENERAL: A pleasant patient without any distress. VITAL SIGNS: BP 110/70, HR 63, RR 12, weight 213.4, temperature 97.4, oxygen saturation at room air 97 % . HEENT: PERRLA, EOMI.low position of soft palate, Mallapati 4 . NECK: Supple. No JVD. LUNGS: Clear to percussion and to auscultation. Good air exchange. No wheezing or rhonchi. HEART: S1, S2 regular. ABDOMEN: Soft and nontender.[] EXTREMITIES: No clubbing or cyanosis. EMANATIONS ANALYSIS TECHNICIAN: Awake, alert, and oriented x3. No focal deficit. Impressions: 1. Obstructive sleep apnea-hypopnea syndrome. Patient demonstrated great compliance with treatment, benefiting from treatment. 2. History of atrial fibrillation. 3. Coronary artery disease, status post stent insertion. 4. Hypertension. 5. Hypothyroidism. 6. Hyperlipidemia. 7. History of peptic ulcer disease in the past. 8. Mild obesity, weight increase of 3 pounds comparing to the previous visit, body mass and is 33.8. Plan: 1. Continue using PAP equipment every night for the whole night. 2. To change air filter at least 1-2 times per month. 3. PAP unit should stay lower then position of the head. 4. Advised patient to remove all remaining water from humidifier canister daily and make it dry after each usage. Refill canister with fresh distilled water before each usage. 5. Sleep hygiene with regular time in bed for at least 8 hours. 6. Precautions related to driving. No driving if feel any sleepiness. 7. I will maintain prescription for PAP supplies including mask, tube, filters. 8. Follow up visit in 6 months or earlier if patient has any problems. 9. Watching and losing weight. Thank you very much for allowing me to participate in the management of your patient. Jose Perez MD, PhD, FAASM. Diplomat of [place] Board of Sleep Medicine, Sleep Medicine Board by [place] Board of Internal Medicine Real Estate Job Titles of [facility] [place]
== END ==
LOC: 3 N SLEEP 11:03
PROVIDERS: ATTEND Internal Medicine
DX: G47.33 Obstructive sleep apnea (adult) (pediatric) (principal); I48.91 Unspecified atrial fibrillation; E03.9 Hypothyroidism, unspecified; E66.9 Obesity, unspecified; E78.5 Hyperlipidemia, unspecified; I10 Essential (primary) hypertension; I25.10 Atherosclerotic heart disease of native coronary artery without angina pectoris; Z79.01 Long term (current) use of anticoagulants; Z79.899 Other long term (current) drug therapy; Z87.11 Personal history of peptic ulcer disease; Z95.5 Presence of coronary angioplasty implant and graft; Z68.33 Body mass index [BMI] 33.0-33.9, adult; Z99.89 Dependence on other enabling machines and devices; Z88.8 Allergy status to other drugs, medicaments and biological substances
CPT/HCPCS: 99212

== ENCOUNTER 2025-01-18 08:40 | Day surgery (SDC) | payer MEDICARE ==
[2025-01-14 12:48] VITALS: BMI 32.8
[2025-01-18 09:24] VITALS: RESP 16; TEMP 97.4
[2025-01-18] MEDS: IV FLUID CONTINUATION 1,000 ML IV ONE ×2 (09:24→10:09)
[2025-01-18] MEDS: LACTATED RINGERS 1,000 ML IV SCH (09:24)
[2025-01-18 09:29] LABS: Glucose,Whole Blood 118 mg/dL (70-110)
[2025-01-18] MEDS ORDERED: PROPOFOL 10 MG/ML 20 ML VIAL IV ONE (10:08)
--- NOTE | 2025-01-18 10:24 | P.PCN ---
Date of Procedure: 01/18/25 Procedure(s) Performed: BRIEF HISTORY: Patient is a 69-year-old pleasant white male scheduled for an elective colonoscopy as a part of screening for history of colon polyps. His last colonoscopy was 5 years ago and was noted to have a tubular adenoma. PROCEDURE PERFORMED: Colonoscopy. PREOPERATIVE DIAGNOSIS: Screening for history of colon polyps. IV sedation per Anesthesia. PROCEDURE: After informed consent was obtained, the patient, was brought into the endoscopy unit. IV sedation was administered by Anesthesia under continuous monitoring. Digital rectal examination was normal. Initially the Olympus CF-160 flexible video colonoscope was then inserted in the rectum, gradually advanced into the cecum without any difficulty. Careful examination was performed as the scope was gradually being withdrawn. Ileocecal valve and the appendiceal orifice were visualized and appeared normal. Prep was excellent. Mucosa of the cecum, ascending colon, transverse colon, descending colon, sigmoid colon, and rectum appeared normal. Retroflexion was performed in the rectum and no lesions were seen. The patient tolerated the procedure well. IMPRESSION: Normal-appearing colon from rectum to cecum with no evidence of colorectal neoplasia. Small internal hemorrhoids. RECOMMENDATIONS: Findings of this examination were discussed with the patient as well as his family. He was advised to have repeat screening colonoscopy at age 78..
[2025-01-18 10:47] VITALS: BP 117/71; PULSE 71
== END 2025-01-18 11:38 | disposition home or self-care (01) ==
LOC: ORWHC2ENDO 08:40
PROVIDERS: ATTEND Internal Medicine Gastroenterology
DX: Z12.11 Encounter for screening for malignant neoplasm of colon (principal); K64.8 Other hemorrhoids; I10 Essential (primary) hypertension; I25.10 Atherosclerotic heart disease of native coronary artery without angina pectoris; E11.9 Type 2 diabetes mellitus without complications; E78.5 Hyperlipidemia, unspecified; I49.9 Cardiac arrhythmia, unspecified; G47.33 Obstructive sleep apnea (adult) (pediatric); E03.9 Hypothyroidism, unspecified; K76.0 Fatty (change of) liver, not elsewhere classified; Z79.84 Long term (current) use of oral hypoglycemic drugs; Z79.890 Hormone replacement therapy; Z79.01 Long term (current) use of anticoagulants; Z79.899 Other long term (current) drug therapy; Z86.0101 Personal history of adenomatous and serrated colon polyps; Z88.8 Allergy status to other drugs, medicaments and biological substances
CPT/HCPCS: G0105; J2704; 45378

== ENCOUNTER → 2025-03-02 | Outpatient (CLI) | payer MEDICARE ==
[2025-03-02 16:15] VITALS: BP 124/70; PULSE 72; RESP 16; TEMP 98.5
--- NOTE | 2025-03-02 17:31 | P.PROGSL ---
Subjective DATE: 03/02/2025 FOLLOW UP VISIT. Patient with obstructive sleep apnea hypopnea syndrome return to sleep center for follow-up visit. Information from previous visit have been reviewed. Patient is using PAP equipment every night for the whole night, getting PAP supplies in time. The patient does not have significant problems with the mask, PAP unit and humidification. [place] sleepiness scale is 4, which is normal. I checked information from PAP unit. BPAP unit pressure maximal inspiratory pressure 18, minimal expiratory pressure 7, pressure support 4, average pressure 17.7/13.7 cm H2O. Usage is 98% for more then 4 hours, average 6.7 hours per night. Leak is 16 l/m, which is in acceptable range. Apnea Hypopnea Index is increased to 14.1 which include 3.0 centrals. MEDICATIONS have been reviewed, please see below. During physical exam: GENERAL: A pleasant patient without any distress. VITAL SIGNS: Please see below, weight is 215 lbs. HEENT: PERRLA, EOMI.low position of soft palate, Mallapati 4 . NECK: Supple. No JVD. LUNGS: Clear to percussion and to auscultation. Good air exchange. No wheezing or rhonchi. HEART: S1, S2 regular. ABDOMEN: Soft and nontender.[] EXTREMITIES: No clubbing or cyanosis. BOATSWAIN'S MATE: Awake, alert, and oriented x3. No focal deficit. Impressions: 1. Obstructive sleep apnea-hypopnea syndrome. Patient demonstrated great compliance with treatment, benefiting from treatment. Apnea hypopnea index again increased. 2. Obesity. 3. Coronary artery disease, status post stent insertion. 4. History of atrial fibrillation. 5. Hypertension. 6. Hypothyroidism. 7. Hyperlipidemia. 8. History of peptic ulcer disease. Plan: 1. Continue using PAP equipment every night for the whole night. I recommended to increase BiPAP pressure, but patient has difficulties with high pressure and prefers not to change pressure up. 2. Sleep hygiene with regular time in bed for at least 7.5-8 hours 3. PAP unit should stay lower then position of the head. 4. Advised patient to remove all remaining water from humidifier canister daily and make it dry after each usage. Refill canister with fresh distilled water before each usage. 5. Watching and losing weight. 6. Precautions related to driving. No driving if feel any sleepiness. 7. I will maintain prescription for PAP supplies including mask, tube, filters. 8. Follow up visit in 3 months or earlier if patient has any problems. Thank you very much for allowing me to participate in the management of your patient. Jose Perez MD, PhD, FAASM. Diplomat of [place] Board of Sleep Medicine, Sleep Medicine Board by [place] Board of Internal Medicine Union Representative of [facility] [place] Objective - Vital Signs Vital Signs: Vital Signs Temp 98.5 F 03/02/25 16:14 Pulse 72 03/02/25 16:14 Resp 16 03/02/25 16:14 BP 124/70 03/02/25 16:14 Pulse Ox 94 L 03/02/25 16:14 FiO2 Intake & Output 03/01/25 03/02/25 03/02/25 18:59 06:59 18:59 Weight 97.522 kg Home Medications: Home Medications Medication Instructions Recorded Confirmed Type Levothyroxine Sodium [Synthroid] 112 mcg PO QAM 05/06/14 01/18/25 History lisinopriL [Zestril] 20 mg PO AC-BID@1200,1800 05/06/14 01/18/25 History Ascorbic Acid [Vitamin C] 1,000 mg PO QAM 09/09/14 01/18/25 History Omeprazole [PriLOSEC] 20 mg PO HS 09/09/14 01/18/25 History Atorvastatin [Lipitor] 80 mg PO HS #30 tab 12/20/14 01/18/25 Rx Nitroglycerin Sl Tabs [Nitrostat] 0.4 mg SUBLINGUAL Q5M PRN #25 tab 12/20/14 01/14/25 Rx Apixaban [Eliquis] 5 mg PO BID #60 tab 10/24/18 01/18/25 Rx Cholecalciferol [Vitamin D3 (10 400 unit PO TID 04/20/20 01/18/25 History Mcg = 400 Iu)] Multivit-Min/FA/Lycopen/Lutein 1 tab PO QAM 04/20/20 01/18/25 History [Centrum Silver Tablet] flaxseed oiL [Flaxseed Oil] 1,000 mg PO QAM 06/22/21 01/18/25 History Aleve(Unknown Dose) 1 dose PO DIRECTED PRN 01/14/25 History Aspirin 81 mg PO QAM 01/14/25 01/18/25 History Empagliflozin [Jardiance] 25 mg PO QAM 01/14/25 01/18/25 History Ibuprofen(Unknown Dose) 1 dose PO DIRECTED PRN 01/14/25 01/18/25 History Metoprolol Tartrate 12.5 mg PO BID 01/14/25 01/18/25 History amLODIPine [Norvasc] 5 mg PO QAM 01/14/25 01/18/25 History hydroCHLOROthiazide 25 mg PO 1200 01/14/25 01/18/25 History
== END ==
LOC: 3 N SLEEP 15:57
PROVIDERS: ATTEND Internal Medicine
DX: G47.33 Obstructive sleep apnea (adult) (pediatric) (principal); E66.9 Obesity, unspecified; I25.10 Atherosclerotic heart disease of native coronary artery without angina pectoris; I48.91 Unspecified atrial fibrillation; I10 Essential (primary) hypertension; E03.9 Hypothyroidism, unspecified; E78.5 Hyperlipidemia, unspecified; Z95.5 Presence of coronary angioplasty implant and graft; Z87.11 Personal history of peptic ulcer disease; Z99.89 Dependence on other enabling machines and devices; Z87.898 Personal history of other specified conditions; Z88.8 Allergy status to other drugs, medicaments and biological substances
CPT/HCPCS: 99212